=== PATIENT | female | born 1950 | race Caucasian/White ===

== ENCOUNTER 2020-07-22 06:48 | Outpatient (REF) | payer BC, SELFPAY | END 2020-07-22 06:49 | disposition home or self-care (01) | LOC: HO.LAB 06:48 | PROVIDERS: PCP Internal Medicine; Visit Provider Internal Medicine | DX: Z20.828 Contact with and (suspected) exposure to other viral communicable diseases (principal) | CPT/HCPCS: C9803; U0003 ==

== ENCOUNTER 2020-12-23 10:45 | Outpatient (REF) | payer BC, SELFPAY ==
[2020-12-23 10:49] LABS: MANUAL DIFF FLAG NO
[2020-12-23 11:04] LABS: Basophils Percent Auto 0.5 % (0-2); Hematocrit 36.6 % (37-47); Hemoglobin 12.1 g/dl (12.0-16.0); Imm Gran Abs Auto 0.01 X10*3/uL (0.00-0.03); Imm Gran Pct Auto 0.2 % (0.0-0.4); Lymphocytes Absolute Auto 1.4 X10*3/uL (1.2-4.9); Lymphocytes Percent Auto 32.9 % (20-40); Mean Corpuscular HGB Conc 33.1 g/dl (31.0-35.0); Mean Corpuscular Hemoglobin 29.2 pg (27.0-33.0); Mean Corpuscular Volume 88.2 fL (80-98); Monocytes Absolute Auto 0.4 X10*3/uL (0.1-1.2); Monocytes Percent Auto 8.4 % (2-11); Neutrophils Absolute Auto 2.4 X10*3/uL (2.0-8.3); Platelet Count 415 X10*3/uL (160-400); Red Blood Count 4.15 X10*6/uL (4.20-5.50); Red Cell Distribution Width 14.1 % (11.0-16.0); White Blood Count 4.2 X10*3/uL (4.8-10.8)
[2020-12-23 11:15] LABS: Glucose Urine UA NEG (NEG); Leukocyte Esterase Urine 2+ (NEG); Nitrite Urine POS (NEG); PH 6.5 (5.0-8.0); Urine Blood 1+ (NEG); Urine Ketones NEG (NEG); Urine Protein NEG (NEG-TRACE)
[2020-12-23 11:17] LABS: Appearance Urine CLOUDY; Color Urine YELLOW
[2020-12-23 12:22] LABS: WBC Urine 30-49 /HPF (0-4)
[2020-12-23 12:23] LABS: Bacteria Urine 3+ /LPF; Squamous Epithelial Cell Urine 1+ /LPF
[2020-12-23 12:38] LABS: TSH reflex Free T4 1.41 uIU/mL (0.32-4.0)
[2020-12-23 12:40] LABS: Alanine Aminotransferase 21 U/L (0-31); Albumin Level 4.1 g/dL (3.5-5.0); Alkaline Phosphatase 48 U/L (39-117); Anion Gap 14 (12-20); Aspartate Amino Transferase 22 U/L (5-31); Bilirubin Total 0.7 mg/dL (0.0-1.0); Blood Urea Nitrogen 15 mg/dL (9-16); Calcium 9.3 mg/dL (8.4-10.2); Carbon Dioxide 27 mmol/L (22-29); Chloride 98 mmol/L (96-108); Cholesterol 243 mg/dL; Estimated Glomerular Filt Rate > 60; Glucose Fasting 85 mg/dL (60-99); HDL Cholesterol 107 mg/dL; LDL Cholesterol Calculated 127 mg/dl; Potassium 4.4 mmol/L (3.3-5.1); Sodium 135 mmol/L (135-145); Total Protein 6.2 g/dL (6.5-8.0); Triglycerides 47 mg/dL
== END 2020-12-23 10:46 | disposition home or self-care (01) ==
LOC: HO.LNP 10:45
PROVIDERS: Visit Provider Internal Medicine
DX: Z00.00 Encounter for general adult medical examination without abnormal findings (principal); I10 Essential (primary) hypertension; D64.9 Anemia, unspecified; D70.9 Neutropenia, unspecified; E03.9 Hypothyroidism, unspecified
CPT/HCPCS: 80053; 80061; 81001; 81003; 84443; 85025

== ENCOUNTER 2021-05-27 10:15 | Outpatient (REF) | payer BC, SELFPAY ==
--- NOTE | ~2021-05-27 | XR_ITS ---
EXAMINATION: XR CHEST CLINICAL INFORMATION: Pneumonia due to infectious organism. COMPARISON: Chest 11/06/2018 TECHNIQUE: 2 views of the chest were obtained. FINDINGS: The lungs are well-expanded with patchy opacity in right middle lobe and left lingula likely small infiltrates, less likely atelectasis, new since last exam. Rest of the lungs are clear. Heart size and pulmonary vascularity is normal. No gross bony abnormality seen. XR/XR chest 2V IMPRESSION: Patchy opacities in the right middle lobe and lingular segments suggestive of infiltrate. Atelectasis is considered less likely.
== END 2021-05-27 10:16 | disposition home or self-care (01) ==
LOC: HO.HMGCX 10:15
PROVIDERS: PCP Internal Medicine; Visit Provider Internal Medicine
DX: J18.9 Pneumonia, unspecified organism (principal)
CPT/HCPCS: 71046

== ENCOUNTER 2021-05-27 13:50 | Outpatient (REF) | payer BC, SELFPAY | END 2021-05-27 13:51 | disposition home or self-care (01) | LOC: HO.LAB 13:50 | PROVIDERS: PCP Internal Medicine; Visit Provider Internal Medicine | DX: Z20.822 Contact with and (suspected) exposure to COVID-19 (principal) | CPT/HCPCS: C9803; U0003; U0005 ==

== ENCOUNTER 2021-06-02 08:32 | Outpatient (REF) | payer BC, SELFPAY ==
--- NOTE | ~2021-06-02 | XR_ITS ---
EXAMINATION: XR CHEST CLINICAL INFORMATION: Pneumonia. COMPARISON: Most recent chest radiograph dated 05/27/2021. TECHNIQUE: 2 views of the chest were obtained. FINDINGS: Right middle lobe and left lingular opacities, similar when compared to the prior examination. No new airspace consolidation. No pleural effusion or pneumothorax. Stable cardiomediastinal silhouette. XR/XR chest 2V IMPRESSION: Stable right middle lobe and left lingular airspace opacities, similar when compared to the prior examination.
== END 2021-06-02 08:33 | disposition home or self-care (01) ==
LOC: HO.HMGCX 08:32
PROVIDERS: PCP Internal Medicine; Visit Provider Internal Medicine
DX: J18.9 Pneumonia, unspecified organism (principal)
CPT/HCPCS: 71046

== ENCOUNTER 2021-06-15 10:25 | Outpatient (REF) | payer BC, SELFPAY ==
--- NOTE | ~2021-06-15 | XR_ITS ---
EXAMINATION: XR CHEST CLINICAL INFORMATION: Pneumonia COMPARISON: 06/02/2021 TECHNIQUE: 2 views of the chest were obtained. FINDINGS: Hyperexpanded lungs. No consolidation, edema, or effusion. No pneumothorax. The cardiomediastinal silhouette is normal in size. Previous right midlung opacity has resolved. XR/XR chest 2V IMPRESSION: Hyperexpanded, clear lungs. Previous opacity has resolved.
== END 2021-06-15 10:26 | disposition home or self-care (01) ==
LOC: HO.HMGCX 10:25
PROVIDERS: PCP Internal Medicine; Visit Provider Internal Medicine
DX: J18.9 Pneumonia, unspecified organism (principal)
CPT/HCPCS: 71046

== ENCOUNTER 2021-06-29 14:02 | Outpatient (REF) | payer BC, SELFPAY ==
[2021-06-29 14:55] LABS: Thyroid Stimulating Hormone 1.06 uIU/mL (0.32-4.0)
== END 2021-06-29 14:03 | disposition home or self-care (01) ==
LOC: HO.LNP 14:02
PROVIDERS: Visit Provider Internal Medicine
DX: E03.9 Hypothyroidism, unspecified (principal)
CPT/HCPCS: 84443

== ENCOUNTER 2021-07-15 09:30 | Outpatient (REF) | payer BC, SELFPAY ==
--- NOTE | ~2021-07-15 | XR_ITS ---
EXAMINATION: XR CHEST CLINICAL INFORMATION: Bilateral lower zone pneumonia. Follow-up COMPARISON: Chest radiographs 06/15/2021, 06/02/2021, 05/27/2021 TECHNIQUE: 2 views of the chest were obtained. FINDINGS: There is new airspace opacity mid right middle lobe. The right perihilar opacity and opacity left base noted on recent exams have cleared. The costophrenic sulci are clear. The heart is normal in size. The vascularity is normal. The hilar and mediastinal contours and bony structures are unremarkable. XR/XR chest 2V IMPRESSION: 1. New infiltrates mid right middle lobe. 2. Recent right perihilar and left basilar opacities have resolved.
[2021-07-15 11:19] LABS: MANUAL DIFF FLAG NO
[2021-07-15 11:24] LABS: Basophils Percent Auto 0.1 % (0-2); Eosinophils Percent Auto 0.1 % (0-4); Hematocrit 33.4 % (37.0-47.0); Hemoglobin 11.1 g/dl (12.0-16.0); Imm Gran Abs Auto 0.04 X10*3/uL (0.00-0.03); Imm Gran Pct Auto 0.3 % (0.0-0.4); Lymphocytes Absolute Auto 0.9 X10*3/uL (1.2-4.9); Lymphocytes Percent Auto 6.4 % (20-40); Mean Corpuscular HGB Conc 33.2 g/dl (31.0-35.0); Mean Corpuscular Hemoglobin 29.9 pg (27.0-33.0); Mean Platelet Volume 8.6 fL (9.4-12.3); Monocytes Absolute Auto 1.2 X10*3/uL (0.1-1.2); Monocytes Percent Auto 8.5 % (2-11); Neutrophils Absolute Auto 11.5 x10*3/uL (2.0-8.3); Neutrophils Percent Auto 84.6 % (45-73); Platelet Count 438 X10*3/uL (160-400); Red Blood Count 3.71 X10*6/uL (4.20-5.50); Red Cell Distribution Width 14.1 % (11.0-16.0); White Blood Count 13.6 X10*3/uL (4.8-10.8)
[2021-07-15 12:03] LABS: Alanine Aminotransferase 21 U/L (0-31); Albumin Level 3.9 g/dL (3.5-5.0); Alkaline Phosphatase 58 U/L (39-117); Anion Gap 15 (12-20); Aspartate Amino Transferase 25 U/L (5-31); Bilirubin Total 0.7 mg/dL (0.0-1.0); Blood Urea Nitrogen 14 mg/dL (9-16); Calcium 9.3 mg/dL (8.4-10.2); Carbon Dioxide 22 mmol/L (22-29); Chloride 100 mmol/L (96-108); Estimated Glomerular Filt Rate > 60; Glucose Random 94 mg/dL (60-115); Potassium 4.2 mmol/L (3.3-5.1); Sodium 133 mmol/L (135-145); Total Protein 6.2 g/dL (6.5-8.0)
[2021-07-15 12:05] LABS: Erythrocyte Sedimentation Rate 25 MM/HR (0-20)
== END 2021-07-15 09:31 | disposition home or self-care (01) ==
LOC: HO.HMGCLDS 09:30
PROVIDERS: PCP Internal Medicine; Visit Provider Internal Medicine
DX: J18.9 Pneumonia, unspecified organism (principal)
CPT/HCPCS: 36415; 71046; 80053; 85025; 85652

== ENCOUNTER 2021-07-17 09:07 | Outpatient (REF) | payer BC, SELFPAY ==
[2021-07-17 10:12] LABS: COVID-19 Test Negative (Negative)
== END 2021-07-17 09:08 | disposition home or self-care (01) ==
LOC: HO.LAB 09:07
PROVIDERS: PCP Internal Medicine; Visit Provider Internal Medicine
DX: Z20.822 Contact with and (suspected) exposure to COVID-19 (principal)
CPT/HCPCS: 36415; 87635; C9803

== ENCOUNTER 2021-07-30 11:24 | Outpatient (REF) | payer BC, SELFPAY ==
--- NOTE | ~2021-07-30 | XR_ITS ---
EXAMINATION: XR CHEST CLINICAL INFORMATION: Pneumonia of both lower lobes. COMPARISON: Prior chest radiographs, most recently 07/15/2021 TECHNIQUE: 2 views of the chest were obtained. FINDINGS: Near complete resolution of the previously seen right middle lobe opacity. No new airspace opacities are identified. No pleural effusion or pneumothorax. Cardiomediastinal contours are unchanged. XR/XR chest 2V IMPRESSION: Near complete resolution of right middle lobe opacity. No new focal opacities.
== END 2021-07-30 11:25 | disposition home or self-care (01) ==
LOC: HO.HMGCX 11:24
PROVIDERS: PCP Internal Medicine; Visit Provider Internal Medicine
DX: J18.9 Pneumonia, unspecified organism (principal)
CPT/HCPCS: 71046

== ENCOUNTER 2021-12-29 10:58 | Outpatient (REF) | payer BC, SELFPAY ==
[2021-12-29 11:02] LABS: MANUAL DIFF FLAG NO
[2021-12-29 11:15] LABS: Basophils Percent Auto 0.4 % (0-2); Eosinophils Absolute Auto 0.1 X10*3/uL (0.0-0.4); Eosinophils Percent Auto 2.8 % (0-4); Hematocrit 35.3 % (37.0-47.0); Hemoglobin 11.7 g/dl (12.0-16.0); Imm Gran Abs Auto 0.01 X10*3/uL (0.00-0.03); Imm Gran Pct Auto 0.2 % (0.0-0.4); Lymphocytes Absolute Auto 1.2 X10*3/uL (1.2-4.9); Lymphocytes Percent Auto 24.7 % (20-40); Mean Corpuscular HGB Conc 33.1 g/dl (31.0-35.0); Mean Corpuscular Hemoglobin 29.3 pg (27.0-33.0); Mean Corpuscular Volume 88.5 fL (80.0-98.0); Mean Platelet Volume 8.9 fL (9.4-12.3); Monocytes Absolute Auto 0.5 X10*3/uL (0.1-1.2); Monocytes Percent Auto 10.2 % (2-11); Neutrophils Absolute Auto 3.1 x10*3/uL (2.0-8.3); Neutrophils Percent Auto 61.7 % (45-73); Platelet Count 377 X10*3/uL (160-400); Red Blood Count 3.99 X10*6/uL (4.20-5.50); Red Cell Distribution Width 13.4 % (11.0-16.0)
[2021-12-29 11:19] LABS: Appearance Urine HAZY; Color Urine YELLOW; Glucose Urine UA NEG (NEG); Leukocyte Esterase Urine 3+ (NEG); Nitrite Urine NEG (NEG); PH 7.5 (5.0-8.0); Urine Blood 1+ (NEG); Urine Ketones NEG (NEG); Urine Protein NEG (NEG-TRACE)
[2021-12-29 11:29] LABS: Alanine Aminotransferase 15 U/L (0-31); Alkaline Phosphatase 49 U/L (39-117); Anion Gap 7 (12-20); Aspartate Amino Transferase 21 U/L (5-31); Bilirubin Total 0.6 mg/dL (0.0-1.0); Blood Urea Nitrogen 12 mg/dL (9-16); Calcium 9.3 mg/dL (8.4-10.2); Carbon Dioxide 29 mmol/L (22-29); Chloride 101 mmol/L (96-108); Cholesterol 215 mg/dL; Estimated Glomerular Filt Rate > 60; Glucose Fasting 92 mg/dL (60-99); HDL Cholesterol 105 mg/dL; LDL Cholesterol Calculated 103 mg/dl; Potassium 4.2 mmol/L (3.3-5.1); Sodium 133 mmol/L (135-145); Total Protein 6.2 g/dL (6.5-8.0); Triglycerides 39 mg/dL
[2021-12-29 11:36] LABS: Squamous Epithelial Cell Urine 1+ /LPF
[2021-12-29 11:54] LABS: TSH reflex Free T4 0.96 uIU/mL (0.32-4.0)
== END 2021-12-29 10:59 | disposition home or self-care (01) ==
LOC: HO.LNP 10:58
PROVIDERS: Visit Provider Internal Medicine
DX: Z00.00 Encounter for general adult medical examination without abnormal findings (principal); E03.9 Hypothyroidism, unspecified; I10 Essential (primary) hypertension; D64.9 Anemia, unspecified; D70.9 Neutropenia, unspecified
CPT/HCPCS: 80053; 80061; 81001; 84443; 85025

== ENCOUNTER 2022-01-04 10:27 | Outpatient (REF) | payer BC, SELFPAY ==
[2022-01-06 22:06] LABS: Anti Nuclear Antibody Screen POSITIVE (NEGATIVE)
== END 2022-01-04 10:28 | disposition home or self-care (01) ==
LOC: HO.LNP 10:27
PROVIDERS: PCP Internal Medicine; Visit Provider Internal Medicine
DX: R76.8 Other specified abnormal immunological findings in serum (principal)
CPT/HCPCS: 86038; 86039

== ENCOUNTER 2022-06-24 15:28 | Outpatient (REF) | payer BC, SELFPAY ==
[2022-06-24 15:51] LABS: MANUAL DIFF FLAG NO
[2022-06-24 16:28] LABS: Basophils Percent Auto 0.4 % (0-2); Eosinophils Absolute Auto 0.1 X10*3/uL (0.0-0.4); Eosinophils Percent Auto 0.9 % (0-4); Hematocrit 36.3 % (37.0-47.0); Hemoglobin 12.2 g/dl (12.0-16.0); Imm Gran Abs Auto 0.02 X10*3/uL (0.00-0.03); Imm Gran Pct Auto 0.3 % (0.0-0.4); Lymphocytes Absolute Auto 1.2 X10*3/uL (1.2-4.9); Lymphocytes Percent Auto 16.4 % (20-40); Mean Corpuscular HGB Conc 33.6 g/dl (31.0-35.0); Mean Corpuscular Hemoglobin 30.1 pg (27.0-33.0); Mean Corpuscular Volume 89.6 fL (80.0-98.0); Mean Platelet Volume 8.8 fL (9.4-12.3); Monocytes Absolute Auto 0.5 X10*3/uL (0.1-1.2); Monocytes Percent Auto 6.8 % (2-11); Neutrophils Absolute Auto 5.7 x10*3/uL (2.0-8.3); Neutrophils Percent Auto 75.2 % (45-73); Platelet Count 443 X10*3/uL (160-400); Red Blood Count 4.05 X10*6/uL (4.20-5.50); White Blood Count 7.5 X10*3/uL (4.8-10.8)
[2022-06-24 16:40] LABS: Estimated Glomerular Filt Rate > 60
[2022-06-24 16:47] LABS: Creatinine Urine 46.66 mg/dL; Total Protein Urine Random < 7 mg/dL (<12)
[2022-06-24 17:56] LABS: Erythrocyte Sedimentation Rate 5 MM/HR (0-20)
[2022-06-26 14:36] LABS: IgA 153 mg/dL (70-320); IgG 693 mg/dL (600-1540); IgM 90 mg/dL (50-300)
[2022-07-01 13:26] LABS: Anti DNA DS Antibody 3 IU/mL; Antibody to SS-A Antigen <1.0 NEG AI (<1.0 NEG); Antibody to SS-B Antigen <1.0 NEG AI (<1.0 NEG); Myeloperoxidase Antibody <1.0 AI; Proteinase 3 PR3 Antibodies <1.0 AI; SM/Ribonucleoprotein Ab <1.0 NEG AI (<1.0 NEG); Smith Protein <1.0 NEG AI (<1.0 NEG)
== END 2022-06-24 15:29 | disposition home or self-care (01) ==
LOC: HO.LAB 15:28
PROVIDERS: PCP Internal Medicine; Visit Provider Internal Medicine Rheumatology
DX: R76.8 Other specified abnormal immunological findings in serum (principal); Z87.01 Personal history of pneumonia (recurrent)
CPT/HCPCS: 36415; 82565; 82784; 84156; 85025; 85652; 86021; 86140; 86225; 86235

== ENCOUNTER 2023-01-03 10:41 | Outpatient (REF) | payer BC, SELFPAY ==
[2023-01-03 10:49] LABS: MANUAL DIFF FLAG NO
[2023-01-03 11:31] LABS: Basophils Percent Auto 0.6 % (0-2); Eosinophils Absolute Auto 0.1 X10*3/uL (0.0-0.4); Eosinophils Percent Auto 1.3 % (0-4); Hematocrit 37.5 % (37.0-47.0); Hemoglobin 12.5 g/dl (12.0-16.0); Imm Gran Abs Auto 0.01 X10*3/uL (0.00-0.03); Imm Gran Pct Auto 0.2 % (0.0-0.4); Lymphocytes Absolute Auto 1.3 X10*3/uL (1.2-4.9); Lymphocytes Percent Auto 23.8 % (20-40); Mean Corpuscular HGB Conc 33.3 g/dl (31.0-35.0); Mean Corpuscular Hemoglobin 29.6 pg (27.0-33.0); Mean Corpuscular Volume 88.7 fL (80.0-98.0); Mean Platelet Volume 8.6 fL (9.4-12.3); Monocytes Absolute Auto 0.5 X10*3/uL (0.1-1.2); Monocytes Percent Auto 8.5 % (2-11); Neutrophils Absolute Auto 3.6 x10*3/uL (2.0-8.3); Neutrophils Percent Auto 65.6 % (45-73); Platelet Count 415 X10*3/uL (160-400); Red Blood Count 4.23 X10*6/uL (4.20-5.50); Red Cell Distribution Width 13.4 % (11.0-16.0); White Blood Count 5.4 X10*3/uL (4.8-10.8)
[2023-01-03 11:42] LABS: Appearance Urine Clear; Color Urine Yellow; Glucose Urine UA Negative (Negative); Leukocyte Esterase Urine Large (3+) (Negative); Nitrite Urine Negative (Negative); PH 6.5 (5.0-9.0); Specific Gravity - Urine 1.015 (1.005-1.025); UMIC TRIGGER UACC YES; Urine Blood Small (1+) (Negative); Urine Ketones Negative (Negative); Urine Protein Negative (Neg-Trace)
[2023-01-03 11:47] LABS: Bacteria Urine 4+ (None Seen); Hyaline Casts Urine 0-2 /LPF (0-2); Squamous Epithelial Cell Urine 0-2 /HPF (0-2); UACC Culture Trigger YES; WBC Urine >50 /HPF (0-5)
[2023-01-03 11:55] LABS: Alanine Aminotransferase 18 U/L (0-31); Alkaline Phosphatase 52 U/L (39-117); Anion Gap 14 (12-20); Aspartate Amino Transferase 21 U/L (5-31); Bilirubin Total 0.8 mg/dL (0.0-1.0); Blood Urea Nitrogen 10 mg/dL (9-16); Calcium 9.6 mg/dL (8.4-10.2); Carbon Dioxide 27 mmol/L (22-29); Chloride 101 mmol/L (96-108); Cholesterol 243 mg/dL; Estimated Glomerular Filt Rate > 60; Glucose Fasting 91 mg/dL (60-99); HDL Cholesterol 109 mg/dL; LDL Cholesterol Calculated 125 mg/dl; Potassium 4.5 mmol/L (3.3-5.1); Sodium 137 mmol/L (135-145); Total Protein 6.3 g/dL (6.5-8.0); Triglycerides 49 mg/dL
[2023-01-03 12:05] LABS: TSH reflex Free T4 0.59 uIU/mL (0.32-4.0)
== END 2023-01-03 10:42 | disposition home or self-care (01) ==
LOC: HO.LNP 10:41
PROVIDERS: Visit Provider Internal Medicine
DX: Z00.00 Encounter for general adult medical examination without abnormal findings (principal); I10 Essential (primary) hypertension; E03.9 Hypothyroidism, unspecified; D64.9 Anemia, unspecified; R82.90 Unspecified abnormal findings in urine
CPT/HCPCS: 80053; 80061; 81001; 84443; 85025; 87086; 87088; 87186

== ENCOUNTER 2023-01-24 10:35 | Outpatient (REF) | payer BC, SELFPAY ==
[2023-01-24 11:14] LABS: Appearance Urine Cloudy; Color Urine Yellow; Glucose Urine UA Negative (Negative); Leukocyte Esterase Urine Trace (Negative); Nitrite Urine Negative (Negative); PH 8.5 (5.0-9.0); UMIC TRIGGER UA YES; Urine Blood Negative (Negative); Urine Ketones Negative (Negative); Urine Protein Negative (Neg-Trace)
[2023-01-24 11:35] LABS: Bacteria Urine None Seen (None Seen); Hyaline Casts Urine 0-2 /LPF (0-2); Other Crystals Urine Present; RBC Urine 0-2 /HPF (0-2); Squamous Epithelial Cell Urine 0-2 /HPF (0-2)
== END 2023-01-24 10:36 | disposition home or self-care (01) ==
LOC: HO.LNP 10:35
PROVIDERS: PCP Internal Medicine; Visit Provider Internal Medicine
DX: N30.01 Acute cystitis with hematuria (principal)
CPT/HCPCS: 81001; 87086

== ENCOUNTER 2024-01-02 11:13 | Outpatient (REF) | payer BC, SELFPAY ==
[2024-01-02 11:15] LABS: MANUAL DIFF FLAG NO
[2024-01-02 11:39] LABS: Basophils Percent Auto 0.6 % (0-2); Eosinophils Absolute Auto 0.1 X10*3/uL (0.0-0.4); Eosinophils Percent Auto 1.5 % (0-4); Hematocrit 38.5 % (37.0-47.0); Hemoglobin 12.8 g/dl (12.0-16.0); Imm Gran Abs Auto 0.01 X10*3/uL (0.00-0.03); Imm Gran Pct Auto 0.2 % (0.0-0.4); Lymphocytes Absolute Auto 1.2 X10*3/uL (1.2-4.9); Lymphocytes Percent Auto 25.8 % (20-40); Mean Corpuscular HGB Conc 33.2 g/dl (31.0-35.0); Mean Corpuscular Hemoglobin 29.7 pg (27.0-33.0); Mean Corpuscular Volume 89.3 fL (80.0-98.0); Mean Platelet Volume 8.5 fL (9.4-12.3); Monocytes Absolute Auto 0.6 X10*3/uL (0.1-1.2); Monocytes Percent Auto 12.3 % (2-11); Neutrophils Absolute Auto 2.9 x10*3/uL (2.0-8.3); Neutrophils Percent Auto 59.6 % (45-73); Platelet Count 427 X10*3/uL (160-400); Red Blood Count 4.31 X10*6/uL (4.20-5.50); Red Cell Distribution Width 13.7 % (11.0-16.0); White Blood Count 4.8 X10*3/uL (4.8-10.8)
[2024-01-02 11:44] LABS: Appearance Urine Clear; Color Urine Yellow; Glucose Urine UA Negative (Negative); Leukocyte Esterase Urine Small (1+) (Negative); Nitrite Urine Negative (Negative); Specific Gravity - Urine 1.015 (1.005-1.025); UMIC TRIGGER UACC YES; Urine Blood Trace (Negative); Urine Ketones Negative (Negative); Urine Protein Negative (Neg-Trace)
[2024-01-02 11:48] LABS: Bacteria Urine None Seen (None Seen); Hyaline Casts Urine 0-2 /LPF (0-2); Squamous Epithelial Cell Urine 0-2 /HPF (0-2); UACC Culture Trigger YES
[2024-01-02 12:15] LABS: Alanine Aminotransferase 17 U/L (0-31); Albumin Level 4.2 g/dL (3.5-5.0); Alkaline Phosphatase 57 U/L (39-117); Anion Gap 13 (12-20); Aspartate Amino Transferase 22 U/L (5-31); Bilirubin Total 0.4 mg/dL (0.0-1.0); Blood Urea Nitrogen 11 mg/dL (9-16); Calcium 9.4 mg/dL (8.4-10.2); Carbon Dioxide 26 mmol/L (22-29); Chloride 99 mmol/L (96-108); Cholesterol 240 mg/dL (<200); Estimated Glomerular Filt Rate > 60; Glucose Fasting 82 mg/dL (60-99); HDL Cholesterol 113 mg/dL (>40); LDL Cholesterol Calculated 118 mg/dL (<100); Potassium 4.1 mmol/L (3.3-5.1); Sodium 134 mmol/L (135-145); Total Protein 6.9 g/dL (6.5-8.0); Triglycerides 48 mg/dL (<150)
== END 2024-01-02 11:14 | disposition home or self-care (01) ==
LOC: HO.LNP 11:13
PROVIDERS: Visit Provider Internal Medicine
DX: Z00.00 Encounter for general adult medical examination without abnormal findings (principal); I10 Essential (primary) hypertension; E03.9 Hypothyroidism, unspecified; D64.9 Anemia, unspecified
CPT/HCPCS: 80053; 80061; 81001; 84443; 85025; 87086

== ENCOUNTER 2024-01-24 10:05 | Outpatient (REF) | payer BC, SELFPAY ==
[2024-01-24 12:14] LABS: Anion Gap 12 (12-20); Blood Urea Nitrogen 10 mg/dL (9-16); Calcium 9.6 mg/dL (8.4-10.2); Carbon Dioxide 26 mmol/L (22-29); Chloride 97 mmol/L (96-108); Estimated Glomerular Filt Rate > 60; Potassium 4.2 mmol/L (3.3-5.1); Sodium 131 mmol/L (135-145)
[2024-01-24 14:24] LABS: Creatinine Urine 17.01 mg/dL; Total Protein Urine Random < 7 mg/dL (<12)
== END 2024-01-24 10:06 | disposition home or self-care (01) ==
LOC: HO.LAB 10:05
PROVIDERS: PCP Internal Medicine; Visit Provider Internal Medicine Nephrology
DX: I10 Essential (primary) hypertension (principal)
CPT/HCPCS: 36415; 80051; 82310; 82565; 82570; 84156; 84520

== ENCOUNTER → 2024-01-25 11:46 | Outpatient (BNVA) | payer BC, SELFPAY | PROVIDERS: PCP Internal Medicine; Visit Provider Internal Medicine Nephrology ==

== ENCOUNTER 2024-01-25 11:50 | Outpatient (AMB) | payer BC, SELFPAY ==
[2024-01-25 11:50] VITALS: BP 130/70; PULSE 69; O2SAT 96; BMI 22.9
--- NOTE | 2024-01-25 11:50 | HO.NEPHOV ---
Vital Signs 01/25/24 11:50 Height 5 ft 3.5 in Weight 131 lb 4 oz BMI 22.9 BP 130/70 Blood Pressure Location Rt brachial Position Sitting Pulse 69 Pulse Source Pulse Oximeter Pulse Oximetry (%) 96 Oxygen Delivery Method Room Air Intake Visit Reasons: [facility] Manager Required: No Accompanied by: Self / Same As Patient Allergies levofloxacin Allergy (Intermediate, Verified 01/25/24 11:52) Rash lisinopril Allergy (Intermediate, Verified 01/25/24 11:52) cough HPI Comments Details: I had the pleasure of seeing Deborah in follow-up of her hypertension and hyponatremia. She had been prescribed escitalopram recently which she has not been tolerating very well. Her blood pressure is very well controlled. Her serum sodium has been stable. She does not have any orthostatic symptoms, nausea, vomiting, diarrhea, edema, chest pain, shortness of breath, paroxysmal nocturnal dyspnea or orthopnea. She takes nonsteroidal anti-inflammatories as needed basis. She does not drink excessive free water. Otherwise she did not have any new other complaints at the time of this office visit [facility] Medical History (Updated 01/25/24 @ 13:04 by Alec Rust MD) Hypothyroidism Sciatica Hypertension Kidney stones Osteoporosis Neutropenia Insomnia Anemia Tubular adenoma of colon Surgical History Hx of endoscopy Hx of colonoscopy History of right hip replacement Family History Father Cancer Mother Cancer Social History Household Members: Spouse Housing: House Alcohol intake: current Alcohol intake frequency: a few times a month Alcohol type: wine Patient Tobacco Use Status: Never used Tobacco e-Cigarette/Vaping Use: Never Used service: No Current occupational status: employed Current occupation: Realtor Review of Systems Const All systems reviewed & are unremarkable except as noted in HPI and below Physical Exam Vital Signs: Last Vital Signs Pulse 69 01/25/24 11:50 BP 130/70 01/25/24 11:50 Pulse Ox 96 01/25/24 11:50 Oxygen Delivery Method Room Air 01/25/24 11:50 BMI result Body Mass Index 22.9 Const General: comfortable and no acute distress Orientation/consciousness: patient oriented x3 HEENT Head: Yes normocephalic Mouth: Normal oral and palatal mucosa present Eyes EOM: EOMs intact bilaterally Neck Neck: Yes supple Resp Auscultation: clear to auscultation bilaterally Cardio Jugular venous distension: no JVD Rate: regular rate GI Palpation (GI): Soft to palpation Auscultation: normal bowel sounds General: Yes no CVA tenderness Back/Spine/Pelvis Back: no CVA tenderness Skin General skin exam: no rashes or lesions noted Neuro General: patient oriented x3 and moves all extremities Extrem General: Yes no pedal edema Results Reviewed Nephrology Results: Hgb 12.8 g/dl (12.0-16.0) 01/02/24 WBC 4.8 X10*3/uL (4.8-10.8) 01/02/24 Plt Count 427 X10*3/uL (160-400) H 01/02/24 Sodium 131 mmol/L (135-145) L 01/24/24 Potassium 4.2 mmol/L (3.3-5.1) 01/24/24 Chloride 97 mmol/L (96-108) 01/24/24 Carbon Dioxide 26 mmol/L (22-29) 01/24/24 BUN 10 mg/dL (9-16) 01/24/24 Creatinine 0.59 mg/dL (0.5-1.4) 01/24/24 Calcium 9.6 mg/dL (8.4-10.2) 01/24/24 Urine Protein Negative mg/dL (Neg-Trace) 01/02/24 Urine Creatinine 17.01 mg/dL 01/24/24 Protein/Creatinin Ratio TNP 01/24/24 Assessment & Plan Assessment & Plan (1) Hypertension: Code(s): I10 - Essential (primary) hypertension Category: Medical Qualifiers: Hypertension type: primary hypertension Qualified Code(s): I10 - Essential (primary) hypertension (2) Hyponatremia: Code(s): E87.1 - Hypo-osmolality and hyponatremia Category: Medical Plan Deborah has longstanding hypertension. Her blood pressure is currently well controlled at goal on losartan and amlodipine. She does not take excessive sodium in the diet. She does not drink excessive free water either. Her renal functions are normal. Her serum sodium is stable. She does not have any weakness or mentation changes. She likely has mild excessive ADH production. She was encouraged not to take excessive nonsteroidal anti-inflammatories given she is on ARB. Her volume status is optimal. Her blood chemistries are acceptable. I had not make any medication changes today. Answered all questions. Follow-up appointment given. Orders: Orders Creatinine Today I10 - Essential (primary) hypertension Blood Urea Nitrogen Today I10 - Essential (primary) hypertension Electrolytes Today I10 - Essential (primary) hypertension Coding Level of Care Code Est Pt Level 4 (70961) Diagnoses Primary hypertension I10 Hypertension type: primary hypertension Hyponatremia E87.1
== END 2024-01-25 12:11 | disposition home or self-care (01) ==
PROVIDERS: PCP Internal Medicine; Visit Provider Internal Medicine Nephrology
DX: I10 Essential (primary) hypertension (principal); E87.1 Hypo-osmolality and hyponatremia
CPT/HCPCS: 99214

== ENCOUNTER 2024-02-07 11:06 | Outpatient (REF) | payer BC, SELFPAY ==
[2024-02-07 11:18] LABS: Sodium 133 mmol/L (135-145)
== END 2024-02-07 11:07 | disposition home or self-care (01) ==
LOC: HO.LNP 11:06
PROVIDERS: Visit Provider Internal Medicine
DX: E87.1 Hypo-osmolality and hyponatremia (principal)
CPT/HCPCS: 84295

== ENCOUNTER 2024-02-23 11:04 | Outpatient (REF) | payer BC, SELFPAY ==
[2024-02-23 11:46] LABS: Sodium 130 mmol/L (135-145)
== END 2024-02-23 11:05 | disposition home or self-care (01) ==
LOC: HO.LNP 11:04
PROVIDERS: Visit Provider Internal Medicine
DX: E87.1 Hypo-osmolality and hyponatremia (principal)
CPT/HCPCS: 84295

== ENCOUNTER 2024-04-10 10:57 | Outpatient (REF) | payer BC, SELFPAY ==
[2024-04-10 11:05] LABS: Appearance Urine Clear; Color Urine Yellow; Glucose Urine UA Negative (Negative); Leukocyte Esterase Urine Moderate (2+) (Negative); Nitrite Urine Negative (Negative); PH 7.5 (5.0-9.0); Specific Gravity - Urine 1.015 (1.005-1.025); UMIC TRIGGER UACC YES; Urine Blood Trace (Negative); Urine Ketones Negative (Negative); Urine Protein Negative (Neg-Trace)
[2024-04-10 11:07] LABS: Bacteria Urine None Seen (None Seen); Hyaline Casts Urine 0-2 /LPF (0-2); Squamous Epithelial Cell Urine 0-2 /HPF (0-2); UACC Culture Trigger YES
== END 2024-04-10 10:58 | disposition home or self-care (01) ==
LOC: HO.LNP 10:57
PROVIDERS: Visit Provider Internal Medicine
DX: R31.9 Hematuria, unspecified (principal)
CPT/HCPCS: 81001; 87086

== ENCOUNTER 2024-04-26 11:45 | Outpatient (REF) | payer BC, SELFPAY ==
[2024-04-26 12:26] LABS: Sodium 133 mmol/L (135-145)
== END 2024-04-26 11:46 | disposition home or self-care (01) ==
LOC: HO.LNP 11:45
PROVIDERS: Visit Provider Internal Medicine
DX: E87.1 Hypo-osmolality and hyponatremia (principal)
CPT/HCPCS: 84295

== ENCOUNTER 2024-05-29 15:42 | Outpatient (REF) | payer BC, SELFPAY ==
--- NOTE | ~2024-05-29 | XR_ITS ---
EXAMINATION: XR CHEST 2 VIEWS CLINICAL INFORMATION: Pneumonia. COMPARISON: No prior images available at this time TECHNIQUE: 2 views of the chest were obtained. FINDINGS: The lungs are well-inflated. There is no gross pneumothorax. Cardiomediastinal silhouette within normal limits in size. Trace bilateral pleural effusions. Moderate multilevel degenerative changes in the thoracic spine. Moderate hazy opacities along the medial right lower lung. XR/XR chest 2V IMPRESSION: Moderate hazy opacities along the medial right lower lung. Trace bilateral pleural effusions. This study was presented today to July 31, 2024 for interpretation. Stat results provided at this time as requested by referring provider. Electronically signed by: Sunshine Masters MD 07/31/2024 09:38 AM MATI
== END 2024-05-29 15:43 | disposition home or self-care (01) ==
LOC: HO.XRAY 15:42
PROVIDERS: PCP Internal Medicine; Referring Provider Internal Medicine; Visit Provider Internal Medicine
DX: J18.9 Pneumonia, unspecified organism (principal)
CPT/HCPCS: 71046

== ENCOUNTER 2024-07-19 11:48 | Outpatient (REF) | payer BC, SELFPAY ==
[2024-07-19 13:13] LABS: Anion Gap 11 (12-20); Blood Urea Nitrogen 14 mg/dL (9-16); Carbon Dioxide 26 mmol/L (22-29); Chloride 98 mmol/L (96-108); Estimated Glomerular Filt Rate > 60; Sodium 131 mmol/L (135-145)
== END 2024-07-19 11:49 | disposition home or self-care (01) ==
LOC: HO.HMGCLDS 11:48
PROVIDERS: PCP Internal Medicine; Visit Provider Internal Medicine Nephrology
DX: I10 Essential (primary) hypertension (principal)
CPT/HCPCS: 36415; 80051; 82565; 84520

== ENCOUNTER 2024-07-25 11:14 | Outpatient (AMB) | payer BC, SELFPAY ==
--- NOTE | 2024-07-25 11:18 | HO.NEPHOV ---
Vital Signs 07/25/24 11:29 Height 5 ft 3.5 in Weight 131 lb 6 oz BMI 22.9 BP 150/60 H Blood Pressure Location Rt brachial Position Sitting Intake Visit Reasons: 4 mo fu w/ labs/ Conf Accompanied by: Self / Same As Patient Allergies levofloxacin Allergy (Intermediate, Verified 07/25/24 11:29) Rash lisinopril Allergy (Intermediate, Verified 07/25/24 11:29) cough HPI Comments Details: Deborah in follow-up of her hypertension and hyponatremia. Recently she had hystrectomy. She had been prescribed antidepressants which she has not been tolerating very well & D/Barrett them. Her blood pressure is very well controlled. Her serum sodium has been stable. She does not have any orthostatic symptoms, nausea, vomiting, diarrhea, edema, chest pain, shortness of breath, paroxysmal nocturnal dyspnea or orthopnea. She takes nonsteroidal anti-inflammatories as needed basis. She does not drink excessive free water. Otherwise she did not have any new other complaints at the time of this office visit [facility] Medical History (Updated 01/25/24 @ 13:04 by Alec Rust MD) Hypothyroidism Sciatica Hypertension Kidney stones Osteoporosis Neutropenia Insomnia Anemia Tubular adenoma of colon Surgical History Hx of endoscopy Hx of colonoscopy History of right hip replacement Family History Father Cancer Mother Cancer Social History Household Members: Spouse Housing: House Alcohol intake: current Alcohol intake frequency: a few times a month Alcohol type: wine Patient Tobacco Use Status: Never used Tobacco e-Cigarette/Vaping Use: Never Used service: No Current occupational status: employed Current occupation: Realtor Review of Systems Const All systems reviewed & are unremarkable except as noted in HPI and below Physical Exam Vital Signs: Last Vital Signs BP 150/60 H 07/25/24 11:29 BMI result Body Mass Index 22.9 Const General: comfortable and no acute distress Orientation/consciousness: patient oriented x3 HEENT Head: Yes normocephalic Mouth: Normal oral and palatal mucosa present Eyes EOM: EOMs intact bilaterally Neck Neck: Yes supple Resp Auscultation: clear to auscultation bilaterally Cardio Jugular venous distension: no JVD Rate: regular rate GI Palpation (GI): Soft to palpation Auscultation: normal bowel sounds General: Yes no CVA tenderness Back/Spine/Pelvis Back: no CVA tenderness Skin General skin exam: no rashes or lesions noted Neuro General: patient oriented x3 and moves all extremities Extrem General: Yes no pedal edema Results Reviewed Nephrology Results: Hgb 12.8 g/dl (12.0-16.0) 01/02/24 WBC 4.8 X10*3/uL (4.8-10.8) 01/02/24 Plt Count 427 X10*3/uL (160-400) H 01/02/24 Sodium 131 mmol/L (135-145) L 07/19/24 Potassium 4.0 mmol/L (3.3-5.1) 07/19/24 Chloride 98 mmol/L (96-108) 07/19/24 Carbon Dioxide 26 mmol/L (22-29) 07/19/24 BUN 14 mg/dL (9-16) 07/19/24 Creatinine 0.61 mg/dL (0.5-1.4) 07/19/24 Calcium 9.6 mg/dL (8.4-10.2) 01/24/24 Urine Protein Negative mg/dL (Neg-Trace) 04/10/24 Urine Creatinine 17.01 mg/dL 01/24/24 Protein/Creatinin Ratio TNP 01/24/24 Assessment & Plan Assessment & Plan (1) Hyponatremia: Code(s): E87.1 - Hypo-osmolality and hyponatremia Category: Medical (2) Hypertension: Code(s): I10 - Essential (primary) hypertension Category: Medical Qualifiers: Hypertension type: primary hypertension Qualified Code(s): I10 - Essential (primary) hypertension Plan Deborah has longstanding hypertension. Her blood pressure is currently well controlled at goal on losartan and amlodipine. She does not take excessive sodium in the diet. She does not drink excessive free water either. Her renal functions are normal. Her serum sodium is stable. She does not have any weakness or mentation changes. She likely has mild excessive ADH production. She was encouraged not to take excessive nonsteroidal anti-inflammatories given she is on ARB. Her volume status is optimal. Her blood chemistries are acceptable. I had not make any medication changes today. Answered all questions. Orders: Orders Creatinine 6 Months E87.1 - Hypo-osmolality and hyponatremia, I10 - Essential (primary) hypertension Electrolytes 6 Months E87.1 - Hypo-osmolality and hyponatremia, I10 - Essential (primary) hypertension Blood Urea Nitrogen 6 Months E87.1 - Hypo-osmolality and hyponatremia, I10 - Essential (primary) hypertension Protein Creatinine Ratio, Ur 6 Months E87.1 - Hypo-osmolality and hyponatremia, I10 - Essential (primary) hypertension Coding Level of Care Code Est Pt Level 4 (30394) Diagnoses Hyponatremia E87.1 Primary hypertension I10 Hypertension type: primary hypertension
[2024-07-25 11:29] VITALS: BP 150/60; BMI 22.9
== END 2024-07-25 11:39 | disposition home or self-care (01) ==
PROVIDERS: PCP Internal Medicine; Visit Provider Internal Medicine Nephrology
DX: E87.1 Hypo-osmolality and hyponatremia (principal); I10 Essential (primary) hypertension
CPT/HCPCS: 99214

== ENCOUNTER 2024-10-05 10:39 | Outpatient (REF) | payer BC, SELFPAY ==
[2024-10-05 11:15] LABS: Appearance Urine Clear; Color Urine Yellow; Glucose Urine UA Negative (Negative); Leukocyte Esterase Urine Small (1+) (Negative); Nitrite Urine Negative (Negative); PH 7.5 (5.0-9.0); Specific Gravity - Urine 1.015 (1.005-1.025); UMIC TRIGGER UACC YES; Urine Blood Negative (Negative); Urine Ketones Negative (Negative); Urine Protein Negative (Neg-Trace)
--- OUTSIDE RECORDS SUMMARY | 2024-10-05 11:39 | XMS_ITS | Clinical Summary ---
Author Organization [facility] Address [address] [place] [address] Phone Care Team Providers Care Label Remover Name Role Phone Malik Douglas MD Primary Care Provider Allergies Active Allergy Reactions Criticality Noted Date Comments Codeine 08/16/2021 Erythromycin GI intolerance 08/16/2021 Levofloxacin Hives Medium 05/01/2012 Lisinopril Other (see comments) 01/28/2021 Pneumococcal Vac Polyvalent Other (see comments) 01/28/2021 Medications fluticasone (FLONASE) 50 MCG/ACT nasal spray Administer 1 spray into each nostril 1 (one) time each day Active gabapentin (NEURONTIN) 100 MG capsule Take 1 capsule by mouth 1 (one) time each day Active levothyroxine (SYNTHROID, LEVOTHROID) 88 MCG tablet Take 1 tablet by mouth 1 (one) time each day Active zolpidem (AMBIEN) 5 MG tablet Take 1 tablet by mouth at bed time Active gabapentin (NEURONTIN) 300 MG capsule Take 1 capsule by mouth at bed time 3 Active losartan (COZAAR) 100 MG tablet Take 1 tablet (100 mg total) by mouth 1 (one) time each day 90 tablet 5 3 Active amLODIPine (NORVASC) 5 MG tablet Take 1 tablet (5 mg total) by mouth 1 (one) time each day 90 tablet 3 3 Active Active Problems Problem Noted Date Diagnosed Date Bronchiectasis 11/26/2021 Overview (03/17/2022): Last Assessment & Plan: Recommend she stick with her DuoNeb and HyperSal at least once a day. I would say first thing in the morning is ideal. Imaging result abnormal 11/26/2021 Overview (03/17/2022): Last Assessment & Plan: CT of the chest also picked up an abnormal lesion in the liver. Will order liver ultrasound and have advised patient to follow-up with her primary care doctor and her jig boring machine set up operator regarding this. Persistent cough 09/28/2021 Overview (03/17/2022): Last Assessment & Plan: Cough could be related to postnasal drip. For now we will just try some Tessalon Perles. Recurrent pneumonia 09/28/2021 Overview (03/17/2022): Last Assessment & Plan: Concern for possible right middle lobe syndrome and anatomic variant that makes you more prone to pneumonia. Will check CT chest. We will also check IgG subtypes and sed rate / CRP to evaluate for possible bronchiolitis obliterans organizing pneumonia. Patient has not gotten the pneumonia vaccine. She says when she first got it many years ago she had pneumonia soon after and so she has been fearful of getting that vaccine. We will hold off today since we are likely to want to give her polysaccharide vaccine if her IgG levels turntable man to be low. Stricture of esophagus 09/28/2021 Overview (03/17/2022): Last Assessment & Plan: I will order a barium swallow to see if the esophageal stricture is worse than she is thinking. Does seem to have significant reflux symptoms as well. I did advise her to follow-up with GI sooner if the esophagitis progresses. Incomplete uterovaginal prolapse 07/29/2021 Overview (03/17/2022): Pessary placed 07/29/2021--able to manage on own. Doing well. Paitent has apt with [facility] [place] office for discussion of surgical options. Vaginal pessary in situ 07/29/2021 Overview (03/17/2022): #[address] 07/29/2021. Good correction of anatomic defects. She would like to try to manage at home. Instructed her removal and reinsertion prn. Last Assessment & Plan: F/up 4 weeks for reevaluation Hypo-osmolality and or hyponatremia 01/28/2021 Essential hypertension 05/01/2012 Overview (01/28/2021): Benign hypertension; borderline hypertension, never on medication previously. SBP was >180 prior to colonoscopy last week. She attributes the elevated BP to anxiety and lack of sleep. Resolved Problems Problem Noted Date Diagnosed Date Resolved Date History of total hip arthroplasty 08/23/2012 01/28/2021 Overview (01/28/2021): S/P Total replacement of hip Constipation 05/01/2012 01/28/2021 Overview (01/28/2021): Constipation; taking OTC fiber supplement. Hypothyroidism 05/01/2012 01/28/2021 Overview (01/28/2021): Hypothyroidism; TSH checked every 6 months by PCP, has been on the same dose of synthroid many years. Osteoarthritis 05/01/2012 01/28/2021 Overview (01/28/2021): Osteoarthritis - right hip; pain for 3-4 years, affects sleeping, wakes up every couble of hours from pain. Had multiple injections. Immunizations Name Administration Dates Next Due Media Time Conseil SARS-COV-2 10/18/2020 Pfizer SARS-COV-2 10/18/2020 Pneumococcal Conjugate 13-Valent 10/14/2021 Pneumococcal Polysaccharide 08/25/2010 Family History Medical History Relation Comments Diabetes Father Relation Status Comments Father Mother Social History Tobacco Use Types Packs/Day Years Used Date Smoking Tobacco: Never Smokeless Tobacco: Never Tobacco Cessation:Counseling Given: Not Answered Alcohol Use Standard Drinks/Week Comments Yes 0 (1 standard drink = 0.6 oz pure alcohol) Alcoholic Drinks/day: Occasional social drink Comments Unknown Sex and Gender Information Value Date Recorded Sex Assigned at Not on file Legal Sex Female 4:45 PM EST Gender Identity Not on file Sexual Orientation Not on file Last Filed Vital Signs Vital Sign Reading Time Taken Comments Blood Pressure 122/70 04/06/2023 4:01 PM EDT Pulse 59 04/06/2023 4:01 PM EDT Temperature - - Respiratory Rate - - Oxygen Saturation 98% 01/28/2021 1:24 PM EDT Inhaled Oxygen Concentration - - Weight 59 kg (130 lb) 04/06/2023 4:01 PM EDT Height 162.6 cm (5' 4 ) 02/01/2020 12:00 PM EDT Body Mass Index 22.31 02/01/2020 12:00 PM EDT Plan of Treatment Health Maintenance Due Date Last Done Comments Breast Cancer Screening 1950 Colorectal Cancer Screening: Annual FOBT 1998 Colorectal Cancer Screening: Colonoscopy 1998 Colorectal Cancer Screening: Sigmoidoscopy 1998 Pneumococcal Vaccine: 65+ Years (3 of 3 - PPSV23 or PCV20) 12/09/2021 10/14/2021, 08/25/2010 Influenza Vaccine (#1) 2024 Hepatitis B Vaccine Aged Out No longe r eligible based on patient's age to complete this topic Insurance [facility] Care Teams Label Remover Relationship Specialty Start Date End Date Malik Douglas MD [address] [place], [place] PCP - General 08/25/20
--- OUTSIDE RECORDS SUMMARY | 2024-10-05 11:39 | XMS_ITS ---
Author Organization Malik Douglas MD Address [address] [place] [phone] Care Team Providers Care Floor Renovator Name Role Phone Malik Douglas Primary Care Provider REASON FOR VISIT RF Gabapentin 100mg Medications Medication SIG (Take, Route, Fr equency, Duration) Notes Start Date End Date Status Gabapentin 100 MG take 1 capsule daily Orally Once a day for 90 days Active Encounters Encounter Location Date Provider Diagnosis Malik Douglas MD [address] [place], [place] [phone] 10/05/2024 Malik Douglas Loss of balance R26.89 Assessments Encounter Date Diagnosis (ICD Code) Assessment Notes Treatment Notes Treatment Clinical Notes Section Notes 10/05/2024 Loss of balance (ICD-10 - R26.89) Plan Of Treatment Medication Medication Name Sig Start Date Stop Date Notes Gabapentin 100 MG take 1 capsule daily Orally Once a day for 90 days Next Appt Details Provider Name:Malik Dunne ier, 01/08/2025 08:00:00 AM, [address], [address], [place], [place], [phone], Provider Name:Malik Dunne ier, 01/14/2025 10:30:00 AM, [address], [address], [place], [phone], Progress Notes * Deborah HARDY MDOB: (74 yo F)Acc No.[id number]:10/05/2024 Patient:?Deborah HARDY :1950???Age:74 Y???Sex:Female Address:[address] [place] [address], [place] [address] * Refills? Refill Gabapentin Capsule, 100 MG, Orally, 90, take 1 capsule daily, Once a day, 90 days, Refills=2 * * Date:?
--- OUTSIDE RECORDS SUMMARY | 2024-10-05 11:39 | XMS_ITS | Clinical Summary ---
Author Organization [facility] Address [phone] [facility] [place] [address] Care Team Providers Care Staff Climate Scientist Name Role Phone Malik Douglas MD Primary Care Provider Allergies Active Allergy Reactions Criticality Noted Date Comments Codeine 08/16/2021 Erythromycin GI Upset 08/16/2021 Levofloxacin Hives Medium 05/01/2012 Lisinopril Other (See Comments),Cough 01/28/2021 Pneumococcal Vaccine Unknown 04/15/2022 Other Reaction(s): swelling and redness, had one 2022 and was fine Medications Medication Sig Dispensed Refills Start Date End Date Status multivitamin per tablet Take 1 tablet by mouth daily. Active losartan (COZAAR) 100 MG tablet 1 Active amLODIPine (NORVASC) 5 MG tablet Take 5 mg by mouth daily. 1 Active gabapentin (NEURONTIN) 300 MG capsule 1 Active albuterol 90 mcg/actuation inhaler 1 Active sodium chloride (HYPERSAL) 7 % Nebu Take 4 mL by nebulization 2 (two) times a day. 240 mL 6 2 Active nebulizer and compressor Annika 1 Device by Miscellaneous route 2 (two) times a day. Disposable neb kit 2/mo Permanent neb kit 1/6 mo Disposable neb filter 2/mo A7005 Non-disposable neb kit Q6mo A7003 Neb administration kit x 2/mo A7006 Filtered neb kit Qmo A7004 Disposable neb kit x 2/mo A7013 Disposable filter x 2/mo A7014 Non-disposable filter Q3mo A7015 Aersol Mask Qmo 1 each 2 Active albuterol 2.5 mg/0.5 mL nebulizer solution Take 0.5 mL (2.5 mg total) by nebulization every 6 (six) hours as needed for wheezing. 240 mL 11 2 Active SYNTHROID 88 mcg tablet 2 Active acetaminophen (TYLENOL) 325 mg tablet Take 2 tablets (650 mg total) by mouth every 6 (six) hours as needed. 0 4 Active ibuprofen (ADVIL,MOTRIN) 200 MG tablet Take 2 tablets (400 mg total) by mouth every 6 (six) hours as needed for pain (specific location in comments). 4 Active docusate sodium (COLACE) 100 MG capsule Take 1 capsule (100 mg total) by mouth 2 (two) times a day. While taking oxycodone and until regular BM pattern is reestablished 4 Active polyethylene glycol (MIRALAX) 17 gram/dose powder Take 17 g by mouth 2 (two) times a day. If no BM by Tuesday. 4 Active estradioL (ESTRACE) 0.01 % (0.1 mg/gram) vaginal creamIndication s:Atrophic vaginitis Place vaginally 2 (two) times a week. 42 g 1 4 Active escitalopram oxalate (LEXAPRO) 10 MG tablet Take 10 mg by mouth daily. 4 Active nitrofurantoin (MACROBID) 100 MG capsuleIndicati ons:Dysuria Take 1 capsule (100 mg total) by mouth 2 (two) times a day. 10 capsule 5 Active nitrofurantoin (MACROBID) 100 MG capsuleIndicati ons:Dysuria Take 1 capsule (100 mg total) by mouth 2 (two) times a day. 10 capsule 4 09/19/19 25 Discontinued Active Problems Problem Noted Date Diagnosed Date Dysthymia 01/10/2024 Positive JAY (antinuclear antibody) 12/07/2022 Overview (12/07/2022): JAY 1:80 09/2021 and 12/2021; obtained as ? part of neutropenia w/u all ENAs neg; inflammatory markers nl; no urine protein Assessment & Plan (12/07/2022 10:12 AM EDT): Borderline JAY 1:80 (persistent) of questionable clinical significance in absence of historical, physical, or other serologic evidence concerning for SLE, systemic sclerosis, or related connective tissue disease. Absence of Raynaud's is reassuring. Documented h/o neutropenia though this has resolved as of most recent labs available for my review today (06/2022). No indication to trend JAY. No current indication for further rheumatology w/u or ongoing rheumatology-specific mgmt though happy to re-evaluate for any clinically significant change. Age-related osteoporosis wit hout current pathological fracture 12/07/2022 Assessment & Plan (12/07/2022 10:11 AM EDT): Most recent DEXA findings not available for my review today. Patient vaguely recalls pharmacotherapy rx'd by her OBGYN that she was unable to tolerate due to GI side effects. We briefly discussed non-oral options including zoledronic acid and denosumab. She will f/u with her PCP for further discussion. Bronchiectasis without complication 11/26/2021 Assessment & Plan (04/28/2023 10:28 AM EDT): Recommend using DuoNeb and HyperSal daily during the renetta and winter months when she is most likely to get a bronchiectasis exacerbation. If she actually does get sick she should bring that to twice a day. Okay to be off of this in the summertime when she is well. Assessment & Plan (09/17/2022 11:10 AM EST): Recommend continue with DuoNeb DuoNeb and HyperSal and increasing it to twice a day. Would add Mucinex or similar kind of oral decongestant. I think she would benefit from a chest vest. We will order from DME. She should use that at least once a day. Assessment & Plan (06/15/2022 10:35 AM EDT): Continue with Duoneb and HyperSal at least once a day. Consider increasing to twice a day in the winter months or when you get a URI. Assessment & Plan (03/08/2022 9:47 AM EDT): Recommend she stick with her DuoNeb and HyperSal at least once a day. I would say first thing in the morning is ideal. Assessment & Plan (11/26/2021 1:08 PM EDT): Recommend starting DuoNeb and HyperSal twice daily via nebulizer for 2 weeks. After this okay to back off to once a day. Recurrent pneumonia 09/28/2021 Assessment & Plan (04/28/2023 10:29 AM EDT): CT chest is looking stable. Will monitor as needed at this time. Assessment & Plan (06/15/2022 10:36 AM EDT): Several months since last pneumonia, which was in September. Cont to monitor closely. 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 Persistent cough for 3 weeks or longer Assessment & Plan (09/17/2022 11:11 AM EST): We will plan to repeat CT chest in 6 months to ensure improvement. She is at risk for a recurrent pneumonia if we can't clear this mucus. Assessment & Plan (09/28/2021 3:43 PM EST): Cough could be related to postnasal drip. For now we will just try some Tessalon Perles. Esophageal stricture 09/28/2021 Assessment & Plan (12/07/2022 10:09 AM EDT): H/o stricture is relative contraindication to oral bisphosphonates Assessment & Plan (06/15/2022 10:37 AM EDT): No stricture noted on barium swallow. Some coating of epiglottis with no cough reflex but no shelia aspiration. Patient states she eats mindfully. Assessment & Plan (03/08/2022 9:48 AM EDT): I will order a barium swallow to see if the esophageal stricture is worse than she is thinking. Does seem to have significant reflux symptoms as well. I did advise her to follow-up with GI sooner if the esophagitis progresses. Assessment & Plan (11/26/2021 1:09 PM EDT): Possibility that esophageal stricture is worsening and contributing to her recurrent pneumonias. If she continues to have them I would recommend getting a barium swallow and seeing whether or not there is a significant lesion that needs dilatation at this time. Assessment & Plan (09/28/2021 3:44 PM EST): Patient has recurrent esophageal strictures that are ballooned by Dr. Gustafson. Last time was about a year ago. She usually has symptoms of inability to swallow foods such as chicken. Currently her swallowing feels fine. Does bring up possibility of recurrent aspiration as a cause of her recurrent pneumonia. Uterovaginal prolapse, incomplete 07/29/2021 Overview (12/06/2023): TVH, anterior repair, sling performed with good results Hypo-osmolality and hyponatremia 01/28/2021 History of total hip replacement 08/23/2012 Overview (10/05/2014): S/P Total replacement of hip Osteoarthritis 05/01/2012 Overview (12/07/2022): s/p right LAURE and left great toe bunionectomy Assessment & Plan (12/07/2022 10:10 AM EDT): No historical or physical evidence s/o underlying or co-morbid inflammatory arthritis Hypothyroidism 05/01/2012 Overview (10/05/2014): Hypothyroidism; TSH checked every 6 months by PCP, has been on the same dose of synthroid many years. Essential hypertension 05/01/2012 Overview (03/11/2021): Benign hypertension; borderline hypertension, never on medication previously. SBP was >180 prior to colonoscopy last week. She attributes the elevated BP to anxiety and lack of sleep. Benign hypertension; borderline hypertension, never on medication previously. SBP was >180 prior to colonoscopy last week. She attributes the elevated BP to anxiety and lack of sleep. Constipation 05/01/2012 Overview (10/05/2014): Constipation; taking OTC fiber supplement. Resolved Problems Problem Noted Date Diagnosed Date Resolved Date Abnormal finding on imaging 11/26/2021 11/04/2022 Assessment & Plan (11/26/2021 1:09 PM EDT): CT of the chest also picked up an abnormal lesion in the liver. Will order liver ultrasound and have advised patient to follow-up with her primary care doctor and her contact representative regarding this. Vaginal pessary in situ 07/29/202111/14 Overview (07/29/2021): #[address] 07/29/2021. Good correction of anatomic defects. She would like to try to manage at home. Instructed her removal and reinsertion prn. Assessment & Plan (07/29/2021 1:15 PM EST): F/up 4 weeks for reevaluation Encounters Date Type Department Care Team Description 09/25/2024 1:28 PM EST - 09/25/2024 11:59 PM EST Hospital Encounter [facility], X-Ray - [address] [place], [place] [address] Malik Douglas MD Discharge Disposition: Home or Self Care 09/25/2024 Transcribe Orders Virtual Department [address] [place] [address] Malik Douglas MD Cough, unspecified type (Primary Dx) 09/19/2024 10:57 AM EST - 09/19/2024 11:59 PM EST Hospital Encounter [facility] [address] [place] [address] [place] [address] Billy Gibson MD Discharge Disposition: Home or Self Care 09/19/2024 Telephone [facility] [address] [place] [address] Taina Bingham [employer] 08/01/2024 2:11 PM EST - 08/01/2024 11:59 PM EST Hospital Encounter [facility], X-Ray - [address] [place] [address] Malik Douglas MD Discharge Disposition: Home or Self Care 07/31/2024 Transcribe Orders Virtual Department [address] [place] [address] Malik Douglas MD Pneumonia due to infectious organism, unspecified laterality, unspecified part of lung (Primary Dx) from Last 3 Months Immunizations Name Administration Dates Next Due COVID-19 (Pre-06/06) Jorge Vaccine, rS-Ad26, P F 10/18/2020 COVID-19 (Pre-06/06) Pfizer Vaccine, mRNA, PF Influenza High-Dose Quadrivalent Preservative Fr ee IM 06/04/2022 Influenza Quadrivalent Preservative Free IM 04/16 Pneumococcal conjugate PCV13 10/14/2021 Pneumococcal polysaccharide PPSV23 08/25/2010 Family History Medical History Relation Comments Esophageal cancer Father Malignant tumo r of esophagus Cancer Mother bile duct cancer Hypertension Son Relation Status Comments Father (Age 76) Mother Son Social History Tobacco Use Types Packs/Day Years Used Date Smoking Tobacco: Never Smokeless Tobacco: Never Tobacco Cessation:Counseling Given: Not Answered Alcohol Use Standard Drinks/Week Comments Not Currently 0 (1 standard drink = 0.6 oz pur e alcohol) Education Answer Date Recorded Are you interested in more education? Not on anusha e 12/10/2022 Are you concerned about learning? Not on file 12/10/2022 No 12/10/2022 No 12/10/2022 Digital Access Answer Date Recorded No 01/09/2023 No 01/09/2023 Reliable internet access at home? Not on file 01/09/2023 Device with a working camera? Not on file Intimate Partner Violence Answer Date R ecorded Are you denied basic needs s uch as food, clothing, or medical care? No 11/08/2023 In the past 12 months have y ou been in a relationship with a person who hurts, threatens, or tries to control you? No 11/08/2023 Are you denied basic needs s uch as food, clothing, or medical care? No 11/08/2023 In the past 12 months have y ou been in a relationship with a person who hurts, threatens, or tries to control you? No 11/08/2023 Sex and Gender Information Value Date Recorded Sex Assigned at Not on file Gender Identity Not on file Sexual Orientation Not on file Last Filed Vital Signs Vital Sign Reading Time Taken Comments Blood Pressure 138/80 01/10/2024 2:33 PM EDT Pulse 73 11/09/2023 6:13 PM EDT Temperature 37.3 ??C (99.1 ??F) 11/09/2023 6:13 PM ED T Respiratory Rate 18 11/09/2023 6:13 PM EDT Oxygen Saturation 98% 11/09/2023 6:13 PM EDT Inhaled Oxygen Concentration - - Weight 58.5 kg (129 lb) 01/10/2024 2:33 PM EDT Height 157.5 cm (5' 2 ) 01/10/2024 2:33 PM EDT Body Mass Index 23.59 01/10/2024 2:33 PM EDT Plan of Treatment Upcoming Encounters Date Type Department Care Team (Late st Contact Info) Description 11/14/2024 8:00 AM EDT Office Visit [facility] [address] [place] [address] [place] [address] Billy Gibson MD [address] [place] [address], [address] [place] [address] [email or web address] Health Maintenance Due Date Last Done Comments Adult Td,Tdap Booster 1949 LIPID PANEL 1949 TSH LEVEL 1949 DEPRESSION SCREENING 1961 HEPATITIS B SCREENING 1967 HEPATITIS C SCREENING 1967 COLOGUARD 1994 COLONOSCOPY 1994 COLORECTAL CANCER SCREENING 1994 FIT TEST 1994 FOBT 1994 SIGMOIDOSCOPY 1994 VIRTUAL COLONOSCOPY 1994 ZOSTER VACCINES (1 of 2) 1999 OSTEOPOROSIS SCREENING INITIAL (ONE-TIME) 2014 INFLUENZA VACCINE (#1) 2024 05/10/2023, 2021 RSV VACCINE (1 - 1-dose 75+ series) 2024 COVID-19 VACCINE ( season) 2024 09/03/2022, 08/27/2021, 10/18/2020, Additional history exists BLOOD PRESSURE 07/12/2024 01/10/2024 CREATININE LEVEL 11/06/2024 11/07/2023, , 05/01/2012 POTASSIUM LEVEL 11/06/2024 11/07/2023, 04/16, 05/01/2012 SMOKING STATUS SCREENING (Once After 26 Yrs) Completed 01/10/2024 HEPATITIS A VACCINES Aged Out No long er eligible based on patient's age to complete this topic HEPATITIS B VACCINES Aged Out No long er eligible based on patient's age to complete this topic HIB VACCINES Aged Out No longer eligi ble based on patient's age to complete this topic MENINGOCOCCAL VACCINES (ACWY) Aged Out No longer eligible based on patient's age to complete this topic Medical Devices Implanted Type Area [employer] Maintainer Device Identifier Shelf Expiration Date Model / Serial / Lot Mesh Mesh Urinary Bladder Pin Pin Left: Toe Prosthetic Joint Prosthetic Joint Right: Hip Sling Incontinence Miduretheral Obtryx Ii Halo Transobturator - [id number] Implanted:Qty: 1 on 11/08/2023 by Billy Gibson MD at [facility] N/A: [employer]UAN [id number] 04/12/2026 [id number] / / [id number] 2 Procedures Procedure Name Priority Date/Time Associated Diagnosis Comments XR CHEST PA AND LATERAL 2 VIEWS Routine 09/25/2024 1:50 PM EST Cough, unspecified type URINE SEDIMENT Routine 09/19/2024 11:05 AM EST URINALYSIS W/REFLEX URINE CULTURE Routine 09/19/2024 11:05 AM EST Dysuria URINE CULTURE Routine 09/19/2024 11:05 AM EST XR CHEST PA AND LATERAL 2 VIEWS Routine 08/01/2024 2:27 PM EST Pneumonia due to infectious organism, unspecified laterality, unspecified part of lung BASIC METABOLIC PANEL Routine 11/07/2023 7:57 AM EDT Urinary frequency from Last 3 Months or Most Recently Relevant to Health Maintenance Results * XR CHEST PA AND LATERAL 2 VIEWS (09/25/2024 1:50 PM EST) Anatomical Region Laterality Modality Chest Computed Radiogr aphy 09/25/2024 2:40 PM EST Impressions 09/25/2024 2:41 PM EST No acute intrathoracic process is identified. Scoliosis. Narrative 09/25/2024 2:41 PM EST XR CHEST PA AND LATERAL 2 VIEWS Referring clinician's provided indication for this examination in [facility]: Cardiac screening, prior to radiation therapy or cardiotoxic meds/chemo COMPARISON: Chest radiography dated August 01, 2024. Chest radiography dated May 29, 2024. FINDINGS: Devices/Tubes/Lines: None. Lungs: The lungs are clear. No focal consolidation or pulmonary edema. Pleura: No pleural effusion or pneumothorax. Heart/Mediastinum: The heart size is normal. No acute hilar or mediastinal abnormalities are identified. Bones/Soft Tissues: Mild vertebral endplate degenerative changes. S-type scoliotic curvature. No acute osseous or soft tissue findings. Procedure Note Nine, Leonel Edwards MD - 02/11/2025 XR CHEST PA AND LATERAL 2 VIEWS Referring clinician's provided indication for this examination in [facility]:Cardiac screening, prior to radiation therapy or cardiotoxic meds/chemo COMPARISON: Chest radiography dated August 01, 2024. Chest radiographydated May 29, 2024. FINDINGS: Devices/Tubes/Lines: None. Lungs: The lungs are clear. No focal consolidation or pulmonary edema. Pleura: No pleural effusion or pneumothorax. Heart/Mediastinum: The heart size is normal. No acute hilar or mediastinalabnormalities are identified. Bones/Soft Tissues: Mild vertebral endplate degenerative changes. S- typescoliotic curvature. No acute osseous or soft tissue findings. IMPRESSION: No acute intrathoracic process is identified. Scoliosis. Malik Douglas MD IMG XR CHEST * (ABNORMAL) Urinalysis w/reflex Urine Culture (09/19/2024 11:05 AM EST) COLOR Yellow Yellow [facility] CLARITY Other [facility] GLUCOSE Negative Negative [facility] BILI Negative Negative [facility] KETONES Trace(A) Negative [facility] SPECIFIC GRAVITY 1.015 1.005 - 1.030 [facility] BLOOD 1+(A) Negative [facility] PH 6.0 5.0 - 8.0 [facility] Protein-UA Negative Negative [facility] NITRITE Negative Negative [facility] Leukocyte esterase, ur 1+(A) Negative [facility] Urine (Urine) 09/19/2024 11: 05 AM EST 09/19/2024 11:07 AM EST Billy Gibson MD URINE ORDERABLES [address] [id number] * (ABNORMAL) Urine Culture (09/19/2024 11:05 AM EST) Special Requests None Reflexed from [id number] 09/19/2024 3:25 PM EST [facility] Urine Culture >100,000 colony forming units per mL ESCHERICHIA COLI(A) 09/20/2024 11:23 AM EST [facility] Urine 09/19/2024 11:0 5 AM EST 09/19/2024 11:07 AM EST Narrative Organism Antibiotic Method Susceptibility Escherichia coli Ampicillin JANETTE METHOD <=2: Susceptible Escherichia coli Amoxicillin + Clavulanate JANETTE METHOD <=2: Susceptible Escherichia coli Ampicillin + Sulbactam JANETTE METHOD <=2: Susceptible Escherichia coli Cefazolin JANETTE METHOD <=4: Susceptible Escherichia coli Cefepime JANETTE METHOD <=1: Susceptible Escherichia coli Ceftazidime JANETTE METHOD <=1: Susceptible Escherichia coli Ceftriaxone JANETTE METHOD <=1: Susceptible Escherichia coli Ciprofloxacin JANETTE METHOD <=0.25: Susceptible Escherichia coli Extended Spectrum B-lactamase JANETTE MET HOD Negative Escherichia coli Gentamicin JANETTE METHOD <=1: Susceptible Escherichia coli Levofloxacin JANETTE METHOD 1: Susceptible Escherichia coli Nitrofurantoin JANETTE METHOD <=16: Susceptible Escherichia coli Piperacillin-tazobactam JANETTE METHOD <=4: Susceptible Escherichia coli Trimethoprim/sulfamethoxazole JANETTE MET HOD <=20: Susceptible Comment: Billy Gibson MD MICROBIOLOGY - GENER AL ORDERABLES Performing Organization Address City/[facility]/ZIP Co de Phone Number [address] [address] * (ABNORMAL) Urine sediment (09/19/2024 11:05 AM EST) WBC TOO NUMEROUS TO COUNT(A) NONE SEEN /hpf [facility] RBC NONE SEEN NONE SEEN /hpf [facility] URINE EPITHELIAL NONE SEEN NONE SEEN [facility] MUCUS NONE SEEN NONE SEEN /hpf [facility] BACTERIA 1+(A) NONE SEEN /hpf [facility] 09/19/2024 11:0 5 AM EST 09/19/2024 11:07 AM EST Billy Gibson MD URINE ORDERABLES Performing Organization Address [facility]/ZIP Co de Phone Number [address] [address] * XR CHEST PA AND LATERAL 2 VIEWS (08/01/2024 2:27 PM EST) Anatomical Region Laterality Modality Chest Computed Radiogr aphy 08/01/2024 4:20 PM EST Impressions 08/01/2024 4:22 PM EST Similar reticulonodular opacities and bronchiectasis in the right middle lobe corresponding with findings of prior CT. No new focal consolidation. Narrative 08/01/2024 4:22 PM EST XR CHEST PA AND LATERAL 2 VIEWS Referring clinician's provided indication for this examination in Epic: Pneumonia; pneumonia COMPARISON: XR CHEST OUTSIDE (NO INTERPRETATION) ; CT CHEST WITHOUT CONTRAST ; XR CHEST PA AND LATERAL 2 VIEWS FINDINGS: Devices/Tubes/Lines: None. Lungs: There are similar reticulonodular opacities and bronchiectasis in the right middle lobe corresponding with findings of prior CT. No new focal consolidation. Pleura: No pleural effusion or pneumothorax. Heart/Mediastinum: There is similar radiographic appearance of the cardiomediastinal silhouette. Bones/Soft Tissues: No acute skeletal abnormality. Procedure Note Marimar Grayson MD - 08/01/2024 XR CHEST PA AND LATERAL 2 VIEWS Referring clinician's provided indication for this examination in Epic:Pneumonia; pneumonia COMPARISON: XR CHEST OUTSIDE (NO INTERPRETATION) ; CT CHESTWITHOUT CONTRAST ; XR CHEST PA AND LATERAL 2 [id number] FINDINGS: Devices/Tubes/Lines: None. Lungs: There are similar reticulonodular opacities and bronchiectasis inthe right middle lobe corresponding with findings of prior CT. No newfocal consolidation. Pleura: No pleural effusion or pneumothorax. Heart/Mediastinum: There is similar radiographic appearance of thecardiomediastinal silhouette. Bones/Soft Tissues: No acute skeletal abnormality. IMPRESSION: Similar reticulonodular opacities and bronchiectasis in the right middlelobe corresponding with findings of prior CT. No new focalconsolidation. Malik Douglas MD IMG XR CHEST * (ABNORMAL) Basic metabolic panel (11/07/2023 7:57 AM EDT) SODIUM 134 133 - 146 mmol/L [facility] CHLORIDE 96 96 - 108 mmol/L [facility] POTASSIUM 4.2 3.3 - 5.1 mmol/L [facility] CO2 27 21 - 35 mmol/L [facility] BUN 13 6 - 19 mg/dL [facility] CREATININE 0.40(L) 0.5 - 1.5 mg/dL [facility] GLUCOSE 57(L) 70 - 99 mg/dL [facility] CALCIUM 9.5 8.4 - 10.3 mg/dL [facility] EGFR 104 >59 mL/min/1.7 3m2 [facility] Comment:Estimated glomerular filtration rate calculated using the CKD-EPI refit equation. ANION GAP 15 10 - 20 mmol/L [facility] Blood 11/07/2023 7:57 AM EDT 11/07/2023 9:29 AM EDT Billy Gibson MD LAB BLOOD ORDERABLES [facility] [address] [place] [address] from Last 3 Months or Most Recently Relevant to Health Maintenance Advance Directives Documents on File Type Date Recorded Patient Hr Recruiter Expl anation Healthcare Proxy 11/10/2023 11:31 AM * Full Code (Latest Code Status on File) Date Activated Date Inactivated Comments 11/08/2023 10:36 AM Question Answer Comments Code Status Confirmed With: Patient * Full Code Date Activated Date Inactivated Comments 11/08/2023 7:27 AM 11/08/2023 10:36 AM Question Answer Comments Code Status Confirmed With: Patient Care Teams Staff Climate Scientist Relationship Specialty Start Date End Date Malik Douglas MD [address] [place] [address] [place] [address] PCP - General Internal Medicine 01/18/14 Additional Source Comments The information contained in this document represents components of the legal health record. It is not the complete legal health record.[facility]
--- OUTSIDE RECORDS SUMMARY | 2024-10-05 11:39 | XMS_ITS | Encounter Summary ---
Author Organization [facility] Address [phone] [facility] [place] [address] Care Team Providers Care Crayon Painter Name Role Phone Malik Douglas MD Primary Care Provider Encounter Details Date Type Department Care Team (Late st Contact Info) Description 11/08/2023 Procedure Pass OR Admitting Dept - Virtual Department [address] [place] [address] Social History Tobacco Use Types Packs/Day Years Used Date Smoking Tobacco: Never Smokeless Tobacco: Never Alcohol Use Standard Drinks/Week Comments Not Currently [...] on file Sexual Orientation Not on file documented as of this encounter Plan of Treatment Upcoming Encounters Date Type Department Care Team (Late st Contact Info) Description 11/14/2024 8:00 AM EDT Office Visit [facility] [address] [place] [address] [place] [address] Billy Gibson MD [address] [place] [address], [address] [place] [address] [email or web address] documented as of this encounter Visit Diagnoses Not on filedocumented in this encounter Care Teams Crayon Painter Relationship Specialty Start Date End Date Malik Douglas MD [address] [place] [address] [place] [address] PCP - General Internal Medicine 01/18/14 documented as of this encounter Additional Source Comments The information contained in this document represents components of the legal health record. It is not the complete legal health record.[facility]
--- OUTSIDE RECORDS SUMMARY | 2024-10-05 11:39 | XMS_ITS | Encounter Summary ---
Author Organization [facility] Address [phone] [place] [address] Care Team Providers Care Hunter Trapper Name Role Phone Malik Douglas MD Primary Care Provider Encounter Details Date Type Department Care Team (Late st Contact Info) Description 07/31/2021 Ancillary Orders [employer],Outside Imaging [address] [place], [place] [id number] System, Provider Not In, [place] [address] Social History Tobacco Use Types Packs/Day Years Used Date Smoking Tobacco: Never Smokeless Tobacco: Never Alcohol Use Standard Drinks/Week Comments Yes 0 (1 standard drink = 0.6 oz pur e alcohol) socially Sex and Gender Information Value Date Recorded Sex Assigned at Not on file Gender Identity Not on file Sexual Orientation Not on file documented as of this encounter Plan of Treatment Upcoming Encounters Date Type Department Care Team (Late Contact Info) Description 11/14/2024 8:00 AM EDT Office Visit [facility] [address] [place] [address] [place] [address] Billy Gibson MD [address] [place] [address], [address] [place], [place] [phone] [email or web address] documented as of this encounter Results * XR Chest Outside (No Interpretation) (07/30/2021 12:00 AM EST) Narrative SYSTEMGENERATED, DOCUMENTATION - 07/31/2021 8:55 AM EST This study is for PACS storage only and not for interpretation. Provider Not In System PhD IMG OUTSIDE I MAGING W/OUT INTERPRETATION * XR Chest Outside (No Interpretation) (07/15/2021 12:00 AM EST) Narrative SYSTEMGENERATED, DOCUMENTATION - 07/31/2021 8:55 AM EST This study is for PACS storage only and not for interpretation. Provider Not In System PhD IMG OUTSIDE I MAGING W/OUT INTERPRETATION * XR Chest Outside (No Interpretation) (06/15/2021 12:00 AM EDT) Narrative SYSTEMGENERATED, DOCUMENTATION - 07/31/2021 8:54 AM EST This study is for PACS storage only and not for interpretation. Provider Not In System PhD IMG OUTSIDE I MAGING W/OUT INTERPRETATION * XR Chest Outside (No Interpretation) (06/02/2021 12:00 AM EDT) Narrative SYSTEMGENERATED, DOCUMENTATION - 07/31/2021 8:54 AM EST This study is for PACS storage only and not for interpretation. Provider Not In System PhD IMG OUTSIDE I MAGING W/OUT INTERPRETATION * XR Chest Outside (No Interpretation) (05/27/2021 12:00 AM EDT) Narrative SYSTEMGENERATED, DOCUMENTATION - 07/31/2021 8:53 AM EST This study is for PACS storage only and not for interpretation. Provider Not In System PhD IMG OUTSIDE I MAGING W/OUT INTERPRETATION documented in this encounter Visit Diagnoses Not on filedocumented in this encounter Additional Health Concerns Infection Onset Date Last Indicated Resolved Time CoV-Risk 08/16/2021 08/16/2021 08/25/2021 9:55 AM EST documented as of this encounter Care Teams Hunter Trapper Relationship Specialty Start Date End Date Malik Douglas MD [address] [place] [address] [place] [address] PCP - General Internal Medicine 01/18/14 documented as of this encounter Additional Source Comments The information contained in this document represents components of the legal health record. It is not the complete legal health record.[facility]
--- OUTSIDE RECORDS SUMMARY | 2024-10-05 11:39 | XMS_ITS | Encounter Summary ---
Author Organization [facility] Address [phone] [facility] [place] [address] Care Team Providers Care Overhauler Name Role Phone Malik Douglas MD Primary Care Provider Reason for Referral * Consultation (Elective) - Closed Specialty Diagnoses / Procedures Referred By Contac t Referred To Contact Pulmonary Disease Malik Douglas MD [address] [place] [address] Dr BAKER [address] [place] [address] [facility] Parent [address] [place] [address] Referral ID Status Reason Start Date Expiration Date Visits Re quested Visits Authorized [id number] Closed 07/27/2021 07/27/2022 1 1 Encounter Details Date Type Department Care Team (Late st Contact Info) Description 07/27/2021 Transcribe Orders [facility] Pulmonary, Allergy and Critical Care Medicine [address] [place] [address] Malik Douglas MD [address] [place] [address] [place] [address] Social History Tobacco Use Types Packs/Day Years [...] Office Visit [facility] [address] [place] [address] [place] [address] Billy Gibson MD [address] [place] [address], [address] [place] [address] [email or web address] Scheduled Referrals Name Type Priority Associated Diagnoses Order Schedule Ambulatory referral to [facility] Pulmonology Outpatient Referral Routine Ordered: 07/27/2021 documented as of this encounter Visit Diagnoses Not on filedocumented in this encounter Additional Health Concerns Infection Onset Date Last Indicated Resolved Time CoV-Risk 08/16/2021 08/16/2021 08/25/2021 9:55 AM EST documented as of this encounter Care Teams Overhauler Relationship Specialty Start Date End Date Malik Douglas MD [address] [place] [address] Dr BAKER [address] [place] [address] [place] [address] PCP - General Internal Medicine 01/18/14 documented as of this encounter Additional Source Comments The information contained in this document represents components of the legal health record. It is not the complete legal health record.[facility]
--- OUTSIDE RECORDS SUMMARY | 2024-10-05 11:39 | XMS_ITS ---
Author Organization Malik Douglas MD Address [address] [place] [phone] Care Team Providers Care Blender/Braze Applicator Name Role Phone Malik Douglas Primary Care Provider REASON FOR VISIT Repeat U/A Encounters Encounter Location Date Provider Diagnosis Malik Douglas MD [address] [place] [phone] 10/05/2024 aMlik Douglas Urinary tract infection without hematuria, site unspecified N39.0 Assessments Encounter Date Diagnosis (ICD Code) Assessment Notes Treatment Notes Treatment Clinical Notes Section Notes 10/05/2024 Urinary tract infection without hematuria, site unspecified (ICD-10 - N39.0) Plan Of Treatment Pending Test Test Name Order Date UA ClnCatch+Micro w/rflx Cult 10/05/2024 Next Appt Details Provider Name:Malik duron, 01/08/2025 08:00:00 AM, [address], [address], [place], [phone], Provider Name:Malik Dunne ier, 01/14/2025 10:30:00 AM, [address], [address], [place], [phone], Progress Notes * Deborah HARDY MDOB: (74 yo F)Acc No.[id number]:10/05/2024 Progress Note Patient:?ANTONYElviaDeborah M Provider:?Malik Douglas MD :1950???Age:74 Y???Sex:Female D ate:10/05/2024 Address:[address] [place] [address], [id number] Subjective: * Chief Complaints: * ???1. Repeat U/A. * Medical History:? Objective: * Vitals:? Assessment: * Assessment: 1.?Urinary tract infection w ithout hematuria, site unspecified - N39.0 (Primary)??? Plan: * Treatment: * * The named appointment provid er may or may not be the originator of this progress note, and it is not deemed complete until electronically signed by the appointment provider. Sign off status: Pending * Provider:?Malik Douglas MD Date:?0 10/05/2024 Generated for Germania lan/Annalise/eTkassandrasmitting on:?10/05/2024 11:39 AM EST
--- OUTSIDE RECORDS SUMMARY | 2024-10-05 11:39 | XMS_ITS | Encounter Summary ---
Author Organization [facility] Address [phone] [place] [address] Care Team Providers Care Slide Fastener Chain Assembler Name Role Phone Malik Douglas MD Primary Care Provider Encounter Details Date Type Department Care Team (Late st Contact Info) Description 09/17/2022 Procedure Pass [facility], Ct Scan - [address] [address] Social History Tobacco Use Types Packs/Day Years [...] Description 11/14/2024 8:00 AM EDT Office Visit [facility]ery [address] [place] [address] [place] [address] Billy Gibson MD [address] [place] [address], [facility] [address] [place] [address] documented as of this encounter Visit Diagnoses Not on filedocumented in this encounter Care Teams Slide Fastener Chain Assembler Relationship Specialty Start Date End Date Malik Douglas MD [address] [place] [address] [place] [address] PCP - General Internal Medicine 6/6/14 documented as of this encounter Additional Source Comments The information contained in this document represents components of the legal health record. It is not the complete legal health record.[facility]
--- OUTSIDE RECORDS SUMMARY | 2024-10-05 11:39 | XMS_ITS | Encounter Summary ---
Author Organization [facility] Address [phone] [place] [address] Care Team Providers Care Patternmaker Wood Name Role Phone Malik Douglas MD Primary Care Provider Encounter Details Date Type Department Care Team (Late st Contact Info) Description 06/15/2022 Procedure Pass [facility], Ct Scan - [address] [address] Social History Tobacco Use Types Packs/Day Years [...] Description 11/14/2024 8:00 AM EDT Office Visit [facility] Midw[facility]ery [address] [place] [address] [place] [address] Billy Gibson MD [address] [place] [address], [facility] [address] [place] [address] documented as of this encounter Visit Diagnoses Not on filedocumented in this encounter Care Teams Patternmaker Wood Relationship Specialty Start Date End Date Malik Douglas MD [address] [place] [address] [place] [address] PCP - General Internal Medicine 6/6/14 documented as of this encounter Additional Source Comments The information contained in this document represents components of the legal health record. It is not the complete legal health record.[facility]
--- OUTSIDE RECORDS SUMMARY | 2024-10-05 11:39 | XMS_ITS | Encounter Summary ---
Author Organization [facility] Address [phone] [place] [address] Care Team Providers Care Emergency Communications Operator Name Role Phone Malik Douglas MD Primary Care Provider Reason for Visit * Reason Onset Date Comments Recurrent UTI 03/07/2024 Encounter Details Date Type Department Care Team (Late st Contact Info) Description 03/07/2024 Telephone [facility] [address] [place] [address] Deandre Manuel MD [address] [facility], [address] [place] [address] [email or web address] Recurrent UTI Social History Tobacco Use Types Packs/Day Years [...] on file documented as of this encounter Progress Notes * Mayi Li RN - 09/19/2024 10:23 AM EST Can you please confirm as I see the patient is scheduled for an appointment this afternoon * Stephany Mann - 09/19/2024 10:14 AM EST Pt has a recurring Uti and would like a urine sample sent into the lab. PT denies appt for today * Galina Mccann LPN - 03/08/2024 8:[address] Gibson send antibiotics to pt's pharmacy. Pt informed and will [employer] rx. Pt will call back if symptoms persist after tx. * Taina Bingham LPN - 03/07/2024 2:52 PM EDT Lab is currently in process. Hold for results. * Taina Bingham LPN - 03/07/2024 1:09 PM EDT Patient was notified to go to the lab as order has been placed. Hold for results. * Kendell Taviasorin - 03/07/2024 12:57 PM EDT Pt calling asking for orders to be placed to test for UTI started over the weekend per pt only sx she has is burning during urination documented in this encounter Plan of Treatment Upcoming Encounters Date Type Department Care Team (Late st Contact Info) Description 11/14/2024 8:00 AM EDT Office Visit [facility] Midwifery [address] [place] [address] [place] [address] Billy Gibson MD [address] [place] [address], [address] [address] [email or web address] documented as of this encounter Results * (ABNORMAL) Urinalysis w/reflex Urine Culture (03/07/2024 2:09 PM EDT) COLOR Yellow Yellow [facility] CLARITY CLOUDY [facility] GLUCOSE Negative Negative [facility] BILI Negative Negative [facility] KETONES Negative Negative [facility] SPECIFIC GRAVITY 1.015 1.005 - 1.030 [facility] BLOOD 2+(A) Negative [facility] PH 6.5 5.0 - 8.0 [facility] Protein-UA Negative Negative [facility] NITRITE Negative Negative [facility] Leukocyte esterase, ur 2+(A) Negative [facility] Urine (Urine) 03/07/2024 2:0 9 PM EDT 03/07/2024 2:14 PM EDT Billy Gibson MD URINE ORDERABLES [facility] [address] [place] [address] documented in this encounter Visit Diagnoses Diagnosis Dysuria- Primary documented in this encounter Care Teams Emergency Communications Operator Relationship Specialty Start Date End Date Malik Douglas MD [address] [place] [address] [place] [address] PCP - General Internal Medicine 01/18/14 documented as of this encounter Additional Source Comments The information contained in this document represents components of the legal health record. It is not the complete legal health record.[facility]
--- OUTSIDE RECORDS SUMMARY | 2024-10-05 11:39 | XMS_ITS | Encounter Summary ---
Author Organization [facility] Address [phone] [place] [address] Care Team Providers Care Street Openings Inspector Name Role Phone Malik Douglas MD Primary Care Provider Encounter Details Date Type Department Care Team (Late st Contact Info) Description 04/21/2018 Procedure Pass [facility] Endoscopy Admitting Dept Virtual Department [address] [place] [address] Social History Tobacco Use Types Packs/Day Years Used Date Smoking Tobacco: Never Alcohol Use Standard Drinks/Week Comments Not Asked 0 (1 standard drink = 0.6 oz pur e alcohol) Sex and Gender Information Value Date Recorded Sex Assigned at Not on file Gender Identity Not on file Sexual Orientation Not on file documented as of this encounter Plan of Treatment Upcoming Encounters Date Type Department Care Team (Late st Contact Info) Description 11/14/2024 8:00 AM EDT Office Visit [facility] [address] [place] [address] [place] [address] Billy Gibson MD [address] [place] [address], [facility] [address] [place] [address] documented as of this encounter Visit Diagnoses Not on filedocumented in this encounter Additional Health Concerns Infection Onset Date Last Indicated Resolved Time CoV-Risk 08/16/2021 08/16/2021 08/25/2021 9:55 AM EST documented as of this encounter Care Teams Street Openings Inspector Relationship Specialty Start Date End Date Malik Douglas MD [address] [place] [address] Dr DelaneyyoQUANG pinto [address] PCP - General Internal Medicine 01/18/14 documented as of this encounter Additional Source Comments The information contained in this document represents components of the legal health record. It is not the complete legal health record.[facility]
--- OUTSIDE RECORDS SUMMARY | 2024-10-05 11:39 | XMS_ITS | Encounter Summary ---
Author Organization [facility] Address [phone] [facility] [place] [address] Care Team Providers Care Locomotive Engineer Name Role Phone Malik Douglas MD Primary Care Provider Encounter Details Date Type Department Care Team (Late st Contact Info) Description 07/31/2024 Transcribe Orders Virtual Department [address] [place] [address] Malik Douglas MD [address] [place] [address] [place] [address] Pneumonia due to infectious organism, unspecified laterality, unspecified part of lung (Primary Dx) Social History Tobacco Use Types Packs/Day Years [...] Office Visit [facility] [address] [place] [address] [place] [address] Billy Gibson MD [address] [place] [address], [address] [place] [address] documented as of this encounter Results * XR CHEST PA AND LATERAL [...] ; XR CHEST PA AND LATERAL 2 [id number] FINDINGS: Devices/Tubes/Lines: None. Lungs: There are similar [...] focalconsolidation. Malik Douglas MD IMG XR CHEST documented in this encounter Visit Diagnoses Diagnosis Pneumonia due to infectious organism, unspecified laterality, unspecified part of lung- Primary Pneumonia due to infectious organism, unspecified laterality, unspecified part of lung documented in this encounter Care Teams Locomotive Engineer Relationship Specialty Start Date End Date Malik Douglas MD [address] [place] [address] [place] [address] PCP - General Internal Medicine 01/18/14 documented as of this encounter Additional Source Comments The information contained in this document represents components of the legal health record. It is not the complete legal health record.[facility]
--- OUTSIDE RECORDS SUMMARY | 2024-10-05 11:39 | XMS_ITS ---
Author Organization Malik Douglas MD Address [address] [place] [phone] Care Team Providers Care Dean Of Chapel Name Role Phone Malik Douglas Primary Care Provider Medications Medication SIG (Take, Route, Fr equency, Duration) Notes Start Date End Date Status Synthroid 88 MCG TAKE 1 TABLET ONCE D AILY INTHE MORNING ON AN EMPTY STOMACH Orally Once a day for 90 days Active Encounters Encounter Location Date Provider Diagnosis Malik Douglas MD [address] [place] [phone] 09/27/2024 Malik Douglas Acquired hypothyroidism E03.9 Assessments [...] Name:Malik Dunne ier, 01/08/2025 08:00:00 AM, [address], [address], [place], [phone], Provider Name:Malik Dunne ier, 01/14/2025 10:30:00 AM, [address], [address], [place], [phone], Progress Notes * Deborah HARDY MDOB: (74 yo F)Acc No.[id number]:09/27/2024 Patient:?Deborah HARDY :1950???Age:74 Y???Sex:Female Address:[address] [place] [phone] * Refills? Refill Synthroid Tablet, 88 MCG, Orally, 90, TAKE 1 TABLET ONCE DAILY INTHE MORNING ON AN EMPTY STOMACH, Once a day, 90 days, Refills=3 * true * Date:? Generated for Germania lan/Annalise/Adrianosmitting on:?10/05/2024 11:38 AM EST
--- OUTSIDE RECORDS SUMMARY | 2024-10-05 11:40 | XMS_ITS | Encounter Summary ---
Author Organization [facility] Address [phone] [facility] [place] [address] Care Team Providers Care Research Executive Name Role Phone Malik Douglas MD Primary Care Provider Encounter Details Date Type Department Care Team (Late st Contact Info) Description 09/19/2024 Telephone [facility] [address] [place] [address] Taina Binhgam LPN [address] [place] [address] [email or web address] Social History Tobacco Use Types Packs/Day Years [...] as of this encounter Progress Notes * Vicky Gibson MD - 09/19/2024 5:36 PM ESTAddended by: VICKY GIBSON M.D. on: 09/19/2024 05:36 PM Modules accepted: Orders * Vicky Gibson MD - 09/19/2024 5:34 PM EST Rx for macrobid sent to patient's pharmacy * Taina Bingham LPN - 09/19/2024 4:48 PM EST Results look suspicious for uti. Message to TK to review and advise. Patient was very uncomfortablethis morning. * Taina Bingham LPN - 09/19/2024 12:51 PM EST Labs is in process. Hold for results. * Taina Bingham LPN - 09/19/2024 10:30 AM EST Deborah is calling this morning with symptoms of a uti. She is having an urge to urinate and having some blood and burning. She would like to go to the lab to give a sample. Orders entered. documented in this encounter Plan of Treatment Upcoming Encounters Date Type Department Care Team (Late st Contact Info) Description 11/14/2024 8:00 AM EDT Office Visit [facility]YN [facility] Midwifery [address] [place] [address] [place] [address] Vicky Gibson MD [address] [facility], [address] [place] [address] [email or web address] documented as of this encounter Results * (ABNORMAL) Urinalysis w/reflex Urine Culture (09/19/2024 11:05 AM EST) COLOR Yellow Yellow [facility] CLARITY Other [facility] GLUCOSE Negative Negative [facility] BILI Negative Negative [facility] KETONES Trace(A) Negative [facility] SPECIFIC GRAVITY 1.015 1.005 - 1.030 [facility] BLOOD 1+(A) Negative [facility] PH 6.0 5.0 - 8.0 [facility] Protein-UA Negative Negative [facility] NITRITE Negative Negative [facility] Leukocyte esterase, ur 1+(A) Negative [facility] Urine (Urine) 09/19/2024 11: 05 AM EST 09/19/2024 11:07 AM EST Vicky Gibson MD URINE ORDERABLES [facility] [address] [place] [address] documented in this encounter Visit Diagnoses Diagnosis Dysuria- Primary documented in this encounter Care Teams Research Executive Relationship Specialty Start Date End Date Malik Douglas MD [address] [place] [address] [place] [address] PCP - General Internal Medicine 01/18/14 documented as of this encounter Additional Source Comments The information contained in this document represents components of the legal health record. It is not the complete legal health record.[facility]
--- OUTSIDE RECORDS SUMMARY | 2024-10-05 11:40 | XMS_ITS | Encounter Summary ---
Author Organization [facility] Address [phone] Critical [place] [address] Care Team Providers Care Mold Stamper And Repairer Name Role Phone Malik Douglas MD Primary Care Provider Encounter Details Date Type Department Care Team (Late st Contact Info) Description 09/25/2024 Transcribe Orders Virtual Department [address] [place] [address] Malik Douglas MD [address] [place] [address] [place] [address] Cough, unspecified type (Primary Dx) Social History Tobacco Use Types [...] Office Visit [facility] [address] [place] [address] [place] [address] Billy Gibson MD [address] [place] [address], [address] [place] [address] [email or web address] documented as of this encounter Results * XR CHEST PA AND LATERAL 2 VIEWS (09/25/2024 1:50 PM EST) Anatomical Region Laterality Modality Chest Computed Radiogr aphy 09/25/2024 2:40 PM EST Impressions 09/25/2024 2:41 PM EST No acute intrathoracic process is identified. Scoliosis. Narrative 09/25/2024 2:41 PM EST XR CHEST PA AND LATERAL 2 VIEWS Referring clinician's provided indication for this examination in [facility]: Cardiac screening, prior to radiation therapy or [...] osseous or soft tissue findings. Procedure Note Leonel Jackson MD - 09/25/2024 XR CHEST PA AND LATERAL 2 VIEWS Referring clinician's provided indication for this examination in [facility]:Cardiac screening, prior to radiation therapy or cardiotoxic [...] Scoliosis. Malik Douglas MD IMG XR CHEST documented in this encounter Visit Diagnoses Diagnosis Cough, unspecified type- Primary Cough, unspecified type documented in this encounter Care Teams Mold Stamper And Repairer Relationship Specialty Start Date End Date Malik Douglas MD [address] [place] [address] [place] [address] PCP - General Internal Medicine 01/18/14 documented as of this encounter Additional Source Comments The information contained in this document represents components of the legal health record. It is not the complete legal health record.[facility]
--- OUTSIDE RECORDS SUMMARY | 2024-10-05 11:40 | XMS_ITS | Encounter Summary ---
Author Organization [facility] Address [phone] [place] [address] Care Team Providers Care Net Software Developer Name Role Phone Malik Douglas MD Primary Care Provider Encounter Details Date Type Department Care Team (Latest Contact Info) Description 09/19/2024 10:57 AM EST - 09/19/2024 11:59 PM [facility] Hospital Encounter [facility] [address] [place] [address] Billy Gibson MD [address] [place] [address], [address] [place] [address] [email or web address] Discharge Disposition: Home or Self Care Social History Tobacco Use Types Packs/Day Years [...] on file documented as of this encounter Medications at Time of Discharge Medication Sig Dispensed Refills Start Date End Date acetaminophen (TYLENOL) 325 mg tablet Take 2 tablets (650 mg total) by mouth every 6 (six) hours as needed. 0 11/09/2023 albuterol 2.5 mg/0.5 mL nebulizer solution Take 0.5 mL (2.5 mg total) by nebulization every 6 (six) hours as needed for wheezing. 240 mL 11 11/26/2021 albuterol 90 mcg/actuation inhaler 06/01/2021 amLODIPine (NORVASC) 5 MG tablet Take 5 mg by mouth daily. 02/20/2021 docusate sodium (COLACE) 100 MG capsule Take 1 capsule (100 mg total) by mouth 2 (two) times a day. While taking oxycodone and until regular BM pattern is reestablished 11/09/2023 escitalopram oxalate (LEXAPRO) 10 MG tablet Take 10 mg by mouth daily. 01/10/2024 estradioL (ESTRACE) 0.01 % (0.1 mg/gram) vaginal creamIndications:Atr ophic vaginitis Place vaginally 2 (two) times a week. 42 g 1 12/08/2023 gabapentin (NEURONTIN) 300 MG capsule 01/31/2021 ibuprofen (ADVIL,MOTRIN) 200 MG tablet Take 2 tablets (400 mg total) by mouth every 6 (six) hours as needed for pain (specific location in comments). 11/09/2023 losartan (COZAAR) 100 MG tablet 03/10/2021 multivitamin per tablet Take 1 tablet by mouth daily. nebulizer and compressor Annika 1 Device by [...] Q3mo A7015 Aersol Mask Qmo 1 each 11/26/2021 nitrofurantoin (MACROBID) 100 MG capsuleIndications:D ysuria Take 1 capsule (100 mg total) by mouth 2 (two) times a day. 10 capsule 09/19/2024 polyethylene glycol (MIRALAX) 17 gram/dose powder Take 17 g by mouth 2 (two) times a day. If no BM by Tuesday. 11/09/2023 sodium chloride (HYPERSAL) 7 % Nebu Take 4 mL by nebulization 2 (two) times a day. 240 mL 6 11/26/2021 SYNTHROID 88 mcg tablet 01/04/2022 documented as of this encounter Plan of Treatment Upcoming Encounters Date Type Department Care Team (Late st Contact Info) Description 11/14/2024 8:00 AM EDT Office Visit [facility] [address] [place] [address] [place] [address] Billy Gibson MD [address] [place] [address], [address] [place] [address] [email or web address] documented as of this encounter Procedures Procedure Name Priority Date/Time Associated Diagnosis Comments URINALYSIS W/REFLEX URINE CULTURE Routine 09/19/2024 11:05 AM EST Dysuria URINE CULTURE Routine 09/19/2024 11:05 AM EST URINE SEDIMENT Routine 09/19/2024 11:05 AM EST documented in this encounter Results * (ABNORMAL) Urine Culture (09/19/2024 11:05 AM EST) Special Requests None Reflexed from [id number] 09/19/2024 3:25 PM EST [facility] Urine Culture >100,000 colony forming units per mL ESCHERICHIA COLI(A) 09/20/2024 11:23 AM EST [facility] Urine 09/19/2024 11:0 5 AM EST 09/19/2024 [...] - GENER AL ORDERABLES Performing Organization Address City/[facility] Co de Phone Number [address] [address] * (ABNORMAL) Urine sediment (09/19/2024 11:05 AM EST) WBC TOO NUMEROUS TO COUNT(A) NONE SEEN /hpf [facility] RBC NONE SEEN NONE SEEN /hpf [facility] URINE EPITHELIAL NONE SEEN NONE SEEN [facility] MUCUS NONE SEEN NONE SEEN /hpf [facility] BACTERIA 1+(A) NONE SEEN /hpf [facility] 09/19/2024 11:0 5 AM EST 09/19/2024 11:07 AM EST Billy Gibson MD URINE ORDERABLES Performing Organization Address [facility] Co de Phone Number [address] [address] * (ABNORMAL) Urinalysis w/reflex Urine Culture (09/19/2024 11:05 AM EST) COLOR Yellow Yellow [facility] CLARITY Other [facility] GLUCOSE Negative Negative [facility] BILI Negative Negative [facility] KETONES Trace(A) Negative [facility] SPECIFIC GRAVITY 1.015 1.005 - 1.030 [facility] BLOOD 1+(A) Negative [facility] PH 6.0 5.0 - 8.0 [facility] Protein-UA Negative Negative [facility] NITRITE Negative Negative [facility] Leukocyte esterase, ur 1+(A) Negative [facility] Urine (Urine) 09/19/2024 11: 05 AM EST 09/19/2024 11:07 AM EST Billy Gibson MD URINE ORDERABLES Performing Organization Address City/State/[facility] Co de Phone Number [address] [address] documented in this encounter Visit Diagnoses Diagnosis Dysuria documented in this encounter Care Teams Net Software Developer Relationship Specialty Start Date End Date Malik Douglas MD [address] [place] [address] [place] [address] PCP - General Internal Medicine 01/18/14 documented as of this encounter Additional Source Comments The information contained in this document represents components of the legal health record. It is not the complete legal health record.[facility]
--- OUTSIDE RECORDS SUMMARY | 2024-10-05 11:41 | XMS_ITS | Encounter Summary ---
Author Organization [facility] Address [phone] [place] [address] Care Team Providers Care Barrel Leveler Name Role Phone Malik Douglas MD Primary Care Provider Encounter Details Date Type Department Care Team (Late st Contact Info) Description 09/28/2021 Procedure Pass [facility], Ct Scan - [address] [address] Social History Tobacco Use Types Packs/Day Years [...] Description 11/14/2024 8:00 AM EDT Office Visit [facility] [address] [place] [address] [place] [address] Billy Gibson MD [address] [place] [address], [address] [place] [address] documented as of this encounter Visit Diagnoses Not on filedocumented in this encounter Care Teams Barrel Leveler Relationship Specialty Start Date End Date Malik Douglas MD [address] [place] [address] [place] [address] PCP - General Internal Medicine 6/6/14 documented as of this encounter Additional Source Comments The information contained in this document represents components of the legal health record. It is not the complete legal health record.[facility]
--- OUTSIDE RECORDS SUMMARY | 2024-10-05 11:41 | XMS_ITS | Encounter Summary ---
Author Organization [facility] Address [phone] Counts include 234 beds at the [facility] [place] [address] Care Team Providers Care Flue Dust Laborer Name Role Phone Malik Douglas MD Primary Care Provider Encounter Details Date Type Department Care Team (Latest Contact Info) Description 09/25/2024 1:28 PM EST - 09/25/2024 11:59 PM [facility] Hospital Encounter [facility], X-Ray - [address] [place] [address] Malik Douglas MD [address] [place] [address] [place] [address] Discharge Disposition: Home or Self Care Social [...] Office Visit [facility] [address] [place] [address] [place] [address] Billy Gibson MD [address] [place] [address], [address] [place] [address] [email or web address] documented as of this encounter Procedures Procedure Name Priority Date/Time Associated Diagnosis Comments XR CHEST PA AND LATERAL 2 VIEWS Routine 09/25/2024 1:50 PM EST Cough, unspecified type documented in this encounter Results * XR CHEST PA AND LATERAL 2 VIEWS (09/25/2024 1:50 PM EST) Anatomical Region Laterality Modality Chest Computed Radiogr aphy 09/25/2024 2:40 PM EST Impressions 09/25/2024 2:41 PM EST No acute intrathoracic process is identified. Scoliosis. Narrative 09/25/2024 2:41 PM EST XR CHEST PA AND LATERAL 2 VIEWS Referring clinician's provided indication for this examination in [facility]: Cardiac screening, prior to radiation therapy [...] osseous or soft tissue findings. Procedure Note NineLeonel MD - 09/25/2024 XR CHEST PA AND LATERAL 2 VIEWS Referring clinician's provided indication for this examination in [facility]:Cardiac screening, prior to radiation therapy or [...] this encounter Visit Diagnoses Diagnosis Cough, unspecified type documented in this encounter Care Teams Flue Dust Laborer Relationship Specialty Start Date End Date Malik Douglas MD [address] [place] [address] [place] [address] PCP - General Internal Medicine 01/18/14 documented as of this encounter Additional Source Comments The information contained in this document represents components of the legal health record. It is not the complete legal health record.[facility]
[2024-10-05 11:53] LABS: Bacteria Urine None Seen (None Seen); Hyaline Casts Urine 0-2 /LPF (0-2); RBC Urine 0-2 /HPF (0-2); Squamous Epithelial Cell Urine 0-2 /HPF (0-2); UACC Culture Trigger YES; WBC Urine 0-5 /HPF (0-5)
== END 2024-10-05 10:40 | disposition home or self-care (01) ==
LOC: HO.LNP 10:39
PROVIDERS: Visit Provider Internal Medicine
DX: N39.0 Urinary tract infection, site not specified (principal)
CPT/HCPCS: 81001; 87086; 87147

== ENCOUNTER 2025-01-11 11:18 | Outpatient (REF) | payer MEDICARE, OTHER, SELFPAY ==
[2025-01-11 11:20] LABS: MANUAL DIFF FLAG NO
[2025-01-11 11:45] LABS: Basophils Percent Auto 0.4 % (0-2); Eosinophils Absolute Auto 0.1 X10*3/uL (0.0-0.4); Eosinophils Percent Auto 1.6 % (0-4); Hematocrit 35.6 % (37.0-47.0); Hemoglobin 11.9 g/dl (12.0-16.0); Imm Gran Abs Auto 0.01 X10*3/uL (0.00-0.03); Imm Gran Pct Auto 0.2 % (0.0-0.4); Lymphocytes Absolute Auto 1.3 X10*3/uL (1.2-4.9); Mean Corpuscular HGB Conc 33.4 g/dl (31.0-35.0); Mean Corpuscular Hemoglobin 29.7 pg (27.0-33.0); Mean Corpuscular Volume 88.8 fL (80.0-98.0); Mean Platelet Volume 8.5 fL (9.4-12.3); Monocytes Absolute Auto 0.5 X10*3/uL (0.1-1.2); Monocytes Percent Auto 10.2 % (2-11); Neutrophils Absolute Auto 3.1 x10*3/uL (2.0-8.3); Neutrophils Percent Auto 62.6 % (45-73); Platelet Count 434 X10*3/uL (160-400); Red Blood Count 4.01 X10*6/uL (4.20-5.50); Red Cell Distribution Width 13.2 % (11.0-16.0)
[2025-01-11 11:48] LABS: Appearance Urine Cloudy; Color Urine Yellow; Glucose Urine UA Negative (Negative); Leukocyte Esterase Urine Trace (Negative); Nitrite Urine Negative (Negative); Specific Gravity - Urine 1.015 (1.005-1.025); UMIC TRIGGER UACC YES; Urine Blood Trace (Negative); Urine Ketones Negative (Negative); Urine Protein Negative (Neg-Trace)
[2025-01-11 11:52] LABS: Bacteria Urine None Seen (None Seen); Hyaline Casts Urine 0-2 /LPF (0-2); Squamous Epithelial Cell Urine 0-2 /HPF (0-2); WBC Urine 0-5 /HPF (0-5)
--- OUTSIDE RECORDS SUMMARY | 2025-01-11 12:13 | XMS_ITS | Clinical Summary ---
Author Organization [facility] Address [address] [place] [address] Phone Care Team Providers Care Remodeler Name Role Phone Malik Douglas MD Primary Care Provider [phone] Allergies Active Allergy Reactions Criticality Noted Date [...] with her primary care doctor and her propulsion generator repairer regarding this. Persistent cough 09/28/2021 Overview (03/17/2022): [...] her polysaccharide vaccine if her IgG levels apple turner to be low. 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 Doing well. Paitent has apt with [facility] office for discussion of surgical options. [...] hours from pain. Had multiple injections. Immunizations Immunization Administration Dates Next Due [employer] (Closed) SARS-COV-2 10/18/2020 Pfizer SARS-COV-2 10/18/2020 Pneumococcal Conjugate [...] Colorectal Cancer Screening: Sigmoidoscopy 1998 Pneumococcal Vaccine: 50+ Years (3 of 3 - PCV20 or PCV21) 12/09/2021 10/14/2021, 08/25/2010 Influenza Vaccine (Season Ended) 2025 Pneumococcal Vaccine: Peds ( 0 to 5 Years) and At-Risk Patients (6 to 49 Years) Discontinued 10/14/2021, 08/25/2010 Hepatitis B Vaccine Aged Out No longe r eligible based on patient's age to complete this topic Insurance [facility] Care Teams Remodeler Relationship Specialty Start Date End Date Malik Douglas MD [id number] [place], [place] PCP - General 08/25/20
[2025-01-11 12:33] LABS: Alanine Aminotransferase 20 U/L (0-31); Albumin Level 4.2 g/dL (3.5-5.0); Alkaline Phosphatase 48 U/L (39-117); Anion Gap 12 (12-20); Aspartate Amino Transferase 29 U/L (5-31); Bilirubin Total 0.4 mg/dL (0.0-1.0); Blood Urea Nitrogen 13 mg/dL (9-16); Calcium 9.4 mg/dL (8.4-10.2); Carbon Dioxide 27 mmol/L (22-29); Chloride 101 mmol/L (96-108); Cholesterol 243 mg/dL (<200); Estimated Glomerular Filt Rate > 60; Glucose Fasting 88 mg/dL (60-99); HDL Cholesterol 101 mg/dL (>40); LDL Cholesterol Calculated 131 mg/dL (<100); Potassium 3.9 mmol/L (3.3-5.1); Sodium 136 mmol/L (135-145); Total Protein 6.6 g/dL (6.5-8.0); Triglycerides 55 mg/dL (<150)
== END 2025-01-11 11:19 | disposition home or self-care (01) ==
LOC: HO.LNP 11:18
PROVIDERS: Visit Provider Internal Medicine
DX: I10 Essential (primary) hypertension (principal); E03.9 Hypothyroidism, unspecified; D64.9 Anemia, unspecified; D70.9 Neutropenia, unspecified
CPT/HCPCS: 80053; 80061; 81001; 84443; 85025

== ENCOUNTER 2025-01-25 11:40 | Outpatient (REF) | payer MEDICARE, OTHER, SELFPAY ==
--- OUTSIDE RECORDS SUMMARY | 2025-01-25 12:40 | XMS_ITS | Clinical Summary ---
Author Organization [facility] Address [address] [place] [address] Phone Care Team Providers Care Communications Department Chairperson Name Role Phone Malik Douglas MD Primary [...] with her primary care doctor and her mine car mechanic regarding this. 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 Doing well. Paitent has apt with [facility] office for discussion [...] injections. Immunizations Immunization Administration Dates Next Due [employer] SARS-COV-2 10/18/2020 Pfizer SARS-COV-2 10/18/2020 Pneumococcal Conjugate [...] patient's age to complete this topic Insurance [facility] Care Teams Communications Department Chairperson Relationship Specialty Start Date End Date Malik Douglas MD [id number] [place], [place] PCP - General 08/25/20
[2025-01-25 12:52] LABS: Anion Gap 10 (12-20); Blood Urea Nitrogen 15 mg/dL (9-16); Carbon Dioxide 28 mmol/L (22-29); Chloride 95 mmol/L (96-108); Estimated Glomerular Filt Rate > 60; Potassium 4.5 mmol/L (3.3-5.1); Sodium 128 mmol/L (135-145)
[2025-01-25 14:14] LABS: Creatinine Urine 16.99 mg/dL; Total Protein Urine Random < 7 mg/dL (<12)
== END 2025-01-25 11:41 | disposition home or self-care (01) ==
LOC: HO.LAB 11:40
PROVIDERS: PCP Internal Medicine; Visit Provider Internal Medicine Nephrology
DX: E87.1 Hypo-osmolality and hyponatremia (principal); I10 Essential (primary) hypertension
CPT/HCPCS: 36415; 80051; 82565; 82570; 84156; 84520

== ENCOUNTER 2025-01-30 11:27 | Outpatient (AMB) | payer MEDICARE, OTHER, SELFPAY ==
--- NOTE | 2025-01-30 11:48 | HO.NEPHOV ---
Vital Signs 01/30/25 11:49 Height 5 ft 3.5 in Weight 129 lb BMI 22.5 BP 120/70 Blood Pressure Location Lt brachial Position Sitting Pulse 61 Pulse Source Pulse Oximeter Pulse Oximetry (%) 96 Oxygen Delivery Method Room Air Intake Visit Reasons: Hypertension-Conf Human Resources Communications Manager Required: No Accompanied by: Self / Same As Patient Allergies levofloxacin Allergy (Intermediate, Verified 01/30/25 11:49) Rash lisinopril Allergy (Intermediate, Verified 01/30/25 11:49) cough HPI Comments Details: Deborah in follow-up of her hypertension and hyponatremia. Her blood pressure is well controlled. Her serum sodium has been stable. She does not have any orthostatic symptoms, nausea, vomiting, diarrhea, edema, chest pain, shortness of breath, paroxysmal nocturnal dyspnea or orthopnea. She takes nonsteroidal anti-inflammatories as needed basis. She does not drink excessive free water. Otherwise she did not have any new other complaints at the time of this office visit [facility] Medical History (System 12/18/24 @ 12:05 by Marilyn Finn) Hypothyroidism Sciatica Hypertension Kidney stones Osteoporosis Neutropenia Insomnia Anemia Tubular adenoma of colon Surgical History Hx of endoscopy Hx of colonoscopy History of right hip replacement Family History Father Cancer Mother Cancer Social History Household Members: Spouse Housing: House Alcohol intake: current Alcohol intake frequency: a few times a month Alcohol type: wine Patient Tobacco Use Status: Never used Tobacco e-Cigarette/Vaping Use: Never Used service: No Current occupational status: employed Current occupation: Realtor Review of Systems Const All systems reviewed & are unremarkable except as noted in HPI and below Physical Exam Vital Signs: Last Vital Signs Pulse 61 01/30/25 11:49 BP 152/62 H 01/30/25 11:49 Pulse Ox 96 01/30/25 11:49 Oxygen Delivery Method Room Air 01/30/25 11:49 BMI result Body Mass Index 22.5 Const General: comfortable and no acute distress Orientation/consciousness: patient oriented x3 HEENT Head: Yes normocephalic Mouth: Normal oral and palatal mucosa present Eyes EOM: EOMs intact bilaterally Neck Neck: Yes supple Resp Auscultation: clear to auscultation bilaterally Cardio Jugular venous distension: no JVD Rate: regular rate GI Palpation (GI): Soft to palpation Auscultation: normal bowel sounds General: Yes no CVA tenderness Back/Spine/Pelvis Back: no CVA tenderness Skin General skin exam: no rashes or lesions noted Neuro General: patient oriented x3 and moves all extremities Extrem General: Yes no pedal edema Results Reviewed Nephrology Results: Sodium, (135-145) 128 mmol/L L 01/25/25 Potassium, (3.3-5.1) 4.5 mmol/L 01/25/25 Chloride, (96-108) 95 mmol/L L 01/25/25 Carbon Dioxide, (22-29) 28 mmol/L 01/25/25 BUN, (9-16) 15 mg/dL 01/25/25 Creatinine, (0.5-1.4) 0.51 mg/dL 01/25/25 Calcium, (8.4-10.2) 9.4 mg/dL 01/11/25 Urine Protein, (Neg-Trace) Negative mg/dL 01/11/25 Urine Creatinine 16.99 mg/dL 01/25/25 Protein/Creatinin Ratio TNP 01/25/25 Assessment & Plan Assessment & Plan (1) Hypertension: Code(s): I10 - Essential (primary) hypertension Category: Medical Qualifiers: Hypertension type: primary hypertension Qualified Code(s): I10 - Essential (primary) hypertension (2) Hyponatremia: Code(s): E87.1 - Hypo-osmolality and hyponatremia Category: Medical Plan Deborah has longstanding hypertension. Her blood pressure is controlled at goal on losartan and amlodipine. She does not take excessive sodium in the diet. She does not drink excessive free water either. Her renal functions are normal. Her serum sodium is stable. She does not have any weakness or mentation changes. She likely has mild excessive ADH production. She was encouraged not to take excessive nonsteroidal anti-inflammatories given she is on ARB. Her volume status is optimal. Her blood chemistries are acceptable. I had not make any medication changes today. Answered all questions. Orders: Orders Creatinine 6 Months E87.1 - Hypo-osmolality and hyponatremia, I10 - Essential (primary) hypertension Creatinine 3 Months E87.1 - Hypo-osmolality and hyponatremia, I10 - Essential (primary) hypertension Electrolytes 3 Months E87.1 - Hypo-osmolality and hyponatremia, I10 - Essential (primary) hypertension Electrolytes 6 Months E87.1 - Hypo-osmolality and hyponatremia, I10 - Essential (primary) hypertension Blood Urea Nitrogen 6 Months E87.1 - Hypo-osmolality and hyponatremia, I10 - Essential (primary) hypertension Blood Urea Nitrogen 3 Months E87.1 - Hypo-osmolality and hyponatremia, I10 - Essential (primary) hypertension Coding Level of Care Code Est Pt Level 4 (46146) Diagnoses Primary hypertension I10 Hypertension type: primary hypertension Hyponatremia E87.1
[2025-01-30 11:49] VITALS: BP 120/70; PULSE 61; O2SAT 96; BMI 22.5
--- OUTSIDE RECORDS SUMMARY | 2025-01-30 13:21 | XMS_ITS | Clinical Summary ---
Author Organization [facility] Address [address] [place] [address] Phone Care Team Providers Care Site Auditor Name Role Phone Malik Douglas MD Primary [...] with her primary care doctor and her furrier designer regarding this. Persistent cough 09/28/2021 Overview (03/17/2022): [...] her polysaccharide vaccine if her IgG levels income tax return preparer to be low. 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 Doing well. Paitent has apt with [facility] office for discussion of surgical options. [...] injections. Immunizations Immunization Administration Dates Next Due [employer] SARS-COV-2 10/18/2020 Pfizer SARS-COV-2 10/18/2020 Pneumococcal Conjugate [...] patient's age to complete this topic Insurance [facility] Care Teams Site Auditor Relationship Specialty Start Date End Date Malik Douglas MD [id number] [place], [place] PCP - General 08/25/20
== END 2025-01-30 12:05 | disposition home or self-care (01) ==
LOC: HO.HKA 11:27
PROVIDERS: PCP Internal Medicine; Visit Provider Internal Medicine Nephrology
DX: I10 Essential (primary) hypertension (principal); E87.1 Hypo-osmolality and hyponatremia
CPT/HCPCS: 99214

== ENCOUNTER → 2025-01-30 11:27 | Outpatient (BNVA) | payer MEDICARE, OTHER, SELFPAY | PROVIDERS: PCP Internal Medicine; Visit Provider Internal Medicine Nephrology | DX: I10 Essential (primary) hypertension (principal); E87.1 Hypo-osmolality and hyponatremia | CPT/HCPCS: 99212 ==

== ENCOUNTER 2025-04-24 14:12 | Outpatient (REF) | payer MEDICARE, OTHER, SELFPAY ==
--- OUTSIDE RECORDS SUMMARY | 2024-09-27 05:23 | XMS_ITS ---
Author Organization Malik Douglas MD Address [address] [place] [phone] Care Team Providers Care Data Communications Software Consultant Name Role Phone Malik Douglas Primary Care Provider Medications Medication SIG (Take, Route, Fr equency, Duration) Notes Start Date End Date Status Synthroid 88 MCG TAKE 1 TABLET ONCE D AILY INTHE MORNING ON AN EMPTY STOMACH Orally Once a day for 90 days Active Encounters Encounter Location Date Provider Diagnosis Malik Douglas MD [address] [place] [phone] 09/27/2024 Malik Douglas Acquired hypothyroidism E03.9 Assessments [...] Next Appt Details Provider Name:Malik Dunne ier, 07/16/2025 10:00:00 AM, [address] [place] [address], [address], [place], [place], [phone], Provider Name:Malik Dunne ier, 01/14/2026 07:00:00 AM, [address] [place] [address], Suite [facility], [place], [place], [phone], Provider Name:Malik Dunne ier, 01/21/2026 10:30:00 AM, [address] [place] [address], Suite [facility], [place], [place], [phone], Progress Notes * Deborah HARDY MDOB: (74 yo F)Acc No.[id number]:09/27/2024 Patient: Edward Deborah BROWN :1950 A ge:74 Y S ex:Female Address:[address] [place] [phone] * Refills Refill Synthroid Tablet, 88 MCG, Orally, 90, TAKE 1 TABLET ONCE DAILY INTHE MORNING ON AN EMPTY STOMACH, Once a day, 90 days, Refills=3 * true * Date: Generated for Germania lan/Annalise/Noemiitting on: 0 04/24/2025 05:29 PM EDT
--- OUTSIDE RECORDS SUMMARY | 2024-10-05 04:30 | XMS_ITS ---
Author Organization Malik Douglas MD Address [address] [place], [place] [phone] Care Team Providers Care Mail Superintendent Name Role Phone Malik Douglas Primary Care Provider Results Component Value Reference Range Notes UA ClnCatch+Micro w/rflx Cul t Reviewed date:10/05/2024 04:41:17 PM Interpretation: Performing Lab:[facility], [address] [place] [phone] Notes/Report: Urine, Clean Catch Color Urine Yellow Appearance Urine Clear PH 7.5 5.0-9.0 Glucose Urine UA Negative Negative mg/dL Urine Blood Negative Negative Specific Farley - Urine 1.015 1.005-1.025 Urine Protein Negative [...] Date Provider Diagnosis Malik Douglas MD [address] [place] [address] [place] [phone] 10/05/2024 Malik Douglas Urinary tract infection without hematuria, site unspecified N39.0 Assessments Encounter Date Diagnosis (ICD Code) Assessment Notes Treatment Notes Treatment Clinical Notes Section Notes 10/05/2024 Urinary tract infection without hematuria, site unspecified (ICD-10 - N39.0) Plan Of Treatment Next Appt Details Provider Name:Malik Dunne ier, 07/16/2025 10:00:00 AM, [address] [place] [address], [address], [phone], Provider Name:Malik Dunne ier, 01/14/2026 07:00:00 AM, [address] [place] [address], [address], [phone], Provider Name:Malik Dunne ier, 01/21/2026 10:30:00 AM, [address] [place] [address], [address], [phone], Progress Notes * Deborah HARDY MDOB: (75 yo F)Acc No.[id number]:10/05/2024 Progress Note Patient: Edward Deborah BROWN Provider: Kelli Douglas MD :1950 A ge:74 Y S ex:Female Date:10/05/2024 Address:[address] [place] [address] [place] [phone] Subjective: * Chief Complaints: * 1 . [...] MD Date: 0 10/05/2024 Generated for Germania lan/Annalise/Marcelo on: 0 04/24/2025 05:30 PM EDT
--- OUTSIDE RECORDS SUMMARY | 2024-10-05 05:00 | XMS_ITS ---
Author Organization Malik Douglas MD Address [address] [place] [phone] Care Team Providers Care Photolith Operator Name Role Phone Malik Douglas Primary Care Provider [phone] REASON FOR VISIT RF Gabapentin 100mg Medications Medication SIG (Take, Route, Fr equency, Duration) Notes Start Date End Date Status Gabapentin 100 MG take 1 capsule daily Orally Once a day for 90 days Active Encounters Encounter Location Date Provider Diagnosis Malik Douglas MD [address] [place], [place] [phone] 10/05/2024 Malik Douglas Loss of balance R26.89 [...] Provider Name:Malik Dunne ier, 07/16/2025 10:00:00 AM, [address], [address], [place], [place], [phone], Provider Name:Malik Dunne ier, 01/14/2026 07:00:00 AM, [address] [facility] [address] [facility] [address], [address], [place], [place], [phone], Provider Name:Malik Dunne ier, 01/21/2026 10:30:00 AM, [address], [address], [place], [place], [phone], Progress Notes * Deborah HARDY MDOB: (74 yo F)Acc No.[id number]:10/05/2024 Patient: Edward Deborah BROWN :1950 A ge:74 Y S ex:Female Address:[address] [place] [address], [place] [phone] * Refills Refill Gabapentin Capsule, 100 MG, Orally, 90, take 1 capsule daily, Once a day, 90 days, Refills=2 * true * Date: Generated for Germania lan/Annalise/Noemiitting on: 0 04/24/2025 05:30 PM EDT
--- OUTSIDE RECORDS SUMMARY | 2025-01-11 04:00 | XMS_ITS ---
Author Organization Malik Douglas MD Address [address] [place], [place] [address] Care Team Providers Care Cotton Washer Name Role Phone Malik Douglas Primary Care Provider Results Component Value Reference Range Notes Complete Blood Count Auto Di ff Reviewed date:01/13/2025 11:53:34 AM Interpretation: Performing Lab:[facility], [address] [place] [phone] Notes/Report: White Blood Count 5.0 4.8-10.8 X10*3/uL [...] NRBC Abs Auto 0.000 0.0-0.012 X10*3/uL Comprehensive [place]. Panel Fa st Reviewed date:01/13/2025 11:52:55 AM Interpretation: Performing Lab:[facility], [address] [place] [phone] Notes/Report: Sodium 136 135-145 mmol/L Potassium 3.9 [...] Panel Reviewed date:01/11/2025 04:14:59 PM Interpretation: Performing Lab:[facility], [address] [place] [phone] Notes/Report: Triglycerides 55 <150 mg/dL Desirable Triglyceride: [...] T4 Reviewed date:01/11/2025 01:48:44 PM Interpretation: Performing Lab:[facility], [address] [place] [phone] Notes/Report: TSH reflex Free T4 1.30 0.32-4.0 uIU/mL UA ClnCatch+Micro w/rflx Cul t Reviewed date:01/13/2025 11:55:18 AM Interpretation: Performing Lab:[address] [phone] Notes/Report: Urine, Clean Catch Color Urine Yellow Appearance Urine Cloudy PH 7.0 5.0-9.0 Glucose Urine UA Negative Negative mg/dL Urine Blood Trace Negative Specific [place] - Urine 1.015 1.005-1.025 Urine Protein Negative [...] Location Date Provider Diagnosis Malik Douglas MD [address] [place] [address] [place] [phone] 01/11/2025 Malik Douglas Essential hypertensi on I10 [...] Provider Name:Malik Dunne ier, 07/16/2025 10:00:00 AM, [address] [place] [address], [address] [place] [address], [phone], Provider Name:Malik Dunne ier, 01/14/2026 07:00:00 AM, [address] [place] [address], [place] [address], [place], [place], [phone], Provider Name:Malik Dunne ier, 01/21/2026 10:30:00 AM, [address] [place] [address], [address], [phone], Progress Notes * Deborah HARDY MDOB: (75 yo F)Acc No.[id number]:01/11/2025 Progress Note Patient: Edward Deborah BROWN Juan Pablo Provider: Kelli Douglas MD :1950 A ge:74 Y S ex:Female Date:01/11/2025 Address:[address] [place], [place] [id number] Subjective: * Chief Complaints: * 1 . [...] - 01/11/2025 08:00 AM) L AB: Comprehensive [place]. Panel Fast (Collection Date & Time - [...] - 01/11/2025 08:00 AM) L AB: Comprehensive [place]. Panel Fast (Collection Date & Time - [...] - 01/11/2025 08:00 AM) L AB: Comprehensive [place]. Panel Fast (Collection Date & Time - [...] MD Date: 0 01/11/2025 Generated for Germania lan/Annalise/Marcelo on: 0 04/24/2025 05:30 PM EDT
--- OUTSIDE RECORDS SUMMARY | 2025-01-14 06:30 | XMS_ITS ---
Author Organization Malik Douglas MD Address [address] [place], [place] [phone] Care Team Providers Care French Polisher Name Role Phone Malik Douglas Primary Care Provider [phone] Allergies Allergen (clinical drug ingredient) Drug/Non Drug [...] Location Date Provider Diagnosis Malik Douglas MD [address] [place] [address] [address] [place], [place] [phone] 01/14/2025 Malik Douglas Essential hypertensi on I10 [...] Up: 6 Months, Reason: Provider Name:Malik duron, 07/16/2025 10:00:00 AM, [address] [place] [address], [address], [phone], Provider Name:Malik duron, 01/14/2026 07:00:00 AM, [address] [place] [address], [address], [phone], Provider Name:Malik duron, 01/21/2026 10:30:00 AM, [address] [place] [address], [address], [phone], Progress Notes * Deborah HARDY: (74 yo F)Acc No.[id number]:01/14/2025 Patient: Deborah GAYTAN Provider: Kelli Douglas MD :1950 A ge:74 Y S ex:Female Date:01/14/2025 Address:[address] [place] [address], [place], [id number] Subjective: * Chief Complaints: * R eview [...] T obacco Use: T obacco Use/Smoking P atient is a n onsmoker, A dditional Findings: [...] Urine Blood Trace A Negative - Specific [place] - Urine 1.015 1.005-1.025 - Urine Protein [...] Auto 0.000 0.0-0.012 - X10*3/uL L ab:Comprehensive [place]. Panel Fast (Order Date - 01/11/2025) (Collection [...] masses palpable. RECTAL EXAM: d one by paint roller assembler. FEMALE GENITOURINARY: d one by paint roller assembler. EXTREMITIES: n o clubbing, cyanosis, or edema. [...] MD Date: 0 01/14/2025 Generated for Germania lan/Annalise/Marcelo on: 0 04/24/2025 05:29 PM EDT History and Physical Notes * HPI (History [...] Score: 0 Interpretation and Intervention Depression Leora terra Findings: Negative Follow-Up for Depression: : review [...] mass, no lump RECTAL EXAM: done by paint roller assembler FEMALE GENITOURINARY: done by paint roller assembler ORAL CAVITY: mucosa moist
[2025-04-24 15:39] LABS: Anion Gap 11 (12-20); Blood Urea Nitrogen 18 mg/dL (9-16); Carbon Dioxide 29 mmol/L (22-29); Chloride 96 mmol/L (96-108); Estimated Glomerular Filt Rate > 60; Potassium 5.0 mmol/L (3.3-5.1); Sodium 131 mmol/L (135-145)
--- OUTSIDE RECORDS SUMMARY | 2025-04-24 17:29 | XMS_ITS | Encounter Summary ---
Author Organization [facility] Address [address] [place] [id number] Phone Care Team Providers Care Warranty Administrator Name Role Phone Malik Douglas MD Primary Care Provider Encounter Details Date Type Department Care Team (Late st Contact Info) Description 11/08/2023 Procedure Pass OR Admitting Dept - Virtual Department [address] [place] [address] Social History Tobacco Use Types Packs/Day Years [...] or tries to control you? No 11/08/2023 Comments No Sex and Gender Information Value Date Recorded Sex Assigned at Not on file Legal Sex Female 6:46 PM EST Gender Identity Not on file Sexual Orientation Not on file documented as of this encounter Functional Status * Calculated C-SSRS Risk Score (Lifetime/Recent) Answer Date of Assessment Author No Risk Indicated 11/08/2023 10:43 AM Anneliese Mccoy RN * Long Suicide Severity Rating Scale (Screener/Recent Self-Report) Question Answer Date of Assessment Author 1. Wish to be (Past 1 Month) No 024 10:43 AM Anneliese Mccoy RN 2. Non-Specific Active Suici sarbjit Thoughts (Past 1 Month) No 11/08/2023 10:43 AM Rajesh Mccoy RN 6. Suicidal Behavior (Lifetime) No 4 10:43 AM Anneliese Mccoy RN documented as of this encounter Plan of Treatment Not on file documented as of this encounter Visit Diagnoses Not on filedocumented in this encounter Care Teams Warranty Administrator Relationship Specialty Start Date End Date Malik Douglas MD [address] [place] [address] [place] [address] PCP - General Internal Medicine 01/18/14 documented as of this encounter Additional Source Comments The information contained in this document represents components of the legal health record. It is not the complete legal health record.[facility]
--- OUTSIDE RECORDS SUMMARY | 2025-04-24 17:29 | XMS_ITS | Patient Health Record ---
Author Organization Malik Douglas MD Address [address] [place], [place] [address] Care Team Providers Care Vp Delivery Name Role Phone Malik Douglas Primary Care Provider Allergies Allergen (clinical drug ingredient) Drug/Non Drug Allergy documented on EMR Reaction Allergy Type Onset Date Status Pneumococcal Vac Polyvalent swelling and redness Drug Allergy Active lisinopril Lisinopril cough Drug Allergy Activ e levaquin (uncoded) hives rash Allergy Active Results Component Value Reference Range Notes Sodium Reviewed date:04/26/2024 06:46:59 PM Interpretation: Performing Lab:[address] [phone] Notes/Report: Sodium 133 135-145 mmol/L UA ClnCatch+Micro w/rflx Cul t Reviewed date:10/05/2024 04:41:17 PM Interpretation: Performing Lab:[facility], [address] [place] [phone] Notes/Report: Urine, Clean Catch Color Urine Yellow Appearance Urine Clear PH 7.5 5.0-9.0 Glucose Urine UA Negative Negative mg/dL Urine Blood Negative Negative Specific [place] - Urine 1.015 1.005-1.025 Urine Protein Negative Neg-Trace mg/dL Urine Ketones Negative Negative mg/dL Nitrite Urine Negative Negative Leukocyte Esterase Urine Small (1+) Negative RBC Urine 0-2 0-2 /HPF WBC Urine 0-5 0-5 /HPF Squamous Epithelial Cell Urine 0-2 0-2 /HPF Bacteria Urine None Seen None Seen Hyaline Casts Urine 0-2 0-2 /LPF Complete Blood Count Auto Di ff Reviewed date:01/13/2025 11:53:34 AM Interpretation: Performing Lab:[facility], [address] [place] [phone] Notes/Report: White Blood Count 5.0 4.8-10.8 X10*3/uL [...] 0.0-0.2 /100WBC Neutrophils Absolute Auto 3.1 2.0-8.3 x10*3/uL Imm Gran Abs Auto 0.01 0.00-0.03 X10*3/uL Lymphocytes Absolute Auto 1.3 1.2-4.9 X10*3/uL Monocytes Absolute Auto 0.5 0.1-1.2 X10*3/uL Eosinophils Absolute Auto 0.1 0.0-0.4 X10*3/uL Basophils Absolute Auto 0.0 0.0-0.2 X10*3/uL NRBC Abs Auto 0.000 0.0-0.012 X10*3/uL Comprehensive [place]. Panel Fa st Reviewed date:01/13/2025 11:52:55 AM Interpretation: Performing Lab:[facility], [address] [place] [phone] Notes/Report: Sodium 136 135-145 mmol/L Potassium 3.9 [...] Panel Reviewed date:01/11/2025 04:14:59 PM Interpretation: Performing Lab:[facility], [address] [place] [phone] Notes/Report: Triglycerides 55 <150 mg/dL Desirable Triglyceride: [...] T4 Reviewed date:01/11/2025 01:48:44 PM Interpretation: Performing Lab:[facility], [address] [place] [phone] Notes/Report: TSH reflex Free T4 1.30 0.32-4.0 uIU/mL UA ClnCatch+Micro w/rflx Cul t Reviewed date:01/13/2025 11:55:18 AM Interpretation: Performing Lab:[facility], [address] [place] [phone] Notes/Report: Urine, Clean Catch Color Urine Yellow Appearance Urine Cloudy PH 7.0 5.0-9.0 Glucose Urine UA Negative Negative mg/dL Urine Blood Trace Negative Specific [place] - Urine 1.015 1.005-1.025 Urine Protein Negative Neg-Trace mg/dL Urine Ketones Negative Negative mg/dL Nitrite Urine Negative Negative Leukocyte Esterase Urine Trace Negative RBC Urine 3-5 0-2 /HPF WBC Urine 0-5 0-5 /HPF Squamous Epithelial Cell Urine 0-2 0-2 /HPF Bacteria Urine None Seen None Seen Hyaline Casts Urine 0-2 0-2 /LPF XR chest 2V Reviewed date:08/02/2024 12:42:49 PM Interpretation: Performing Lab: Notes/Report: [address] [address] XRay Report Signed Patient: Deborah Moreno MR#: [id number] : 1950 Acct:[id number] Age/Sex: 74 / F ADM Date: 05/29/24 Loc: [facility] Attending Dr: Alfonso Whelan DO Ordering Physician: Alfonso Whelan DO Date of Service: 05/29/24 Procedure(s): XR chest 2V Accession Number(s): [id number] cc: Malik Douglas MD; Alfonso Whelan DO EXAMINATION: XR CHEST 2 VIEWS CLINICAL INFORMATION: Pneumonia. COMPARISON: No prior images available at this time TECHNIQUE: 2 views of the chest were obtained. FINDINGS: The lungs are well-inflated. There is no gross pneumothorax. Cardiomediastinal silhouette within normal limits in size. Trace bilateral pleural effusions. Moderate multilevel degenerative changes in the thoracic spine. Moderate hazy opacities along the medial right lower lung. XR/XR chest 2V IMPRESSION: Moderate hazy opacities along the medial right lower lung. Trace bilateral pleural effusions. This study was presented today to July 31, 2024 for interpretation. Stat results provided at this time as requested by referring provider. Electronically signed by: Sunshine Masters MD 07/31/2024 09:38 AM EST Dictated By: Sunshine Masters MD Signed By: <Electronically signed by Sunshine Masters MD in OV> 07/31/24 0938 DD/ 1548 TD/TT: 05/29/24 1555 Special Needs Bus Driver: [place] [address] XRay Report Signed Patient: Deborah Moreno MR#: [id number] : 1950 Acct:[id number] Age/Sex: 74 / F ADM Date: 05/29/24 Loc: [facility] Attending Dr: Alfonso Whelan DO Ordering Physician: Alfonso Whelan DO Date of Service: 05/29/24 Procedure(s): XR chest 2V Accession Number(s): [id number] cc: Malik Douglas MD; Alfonso Whelan DO EXAMINATION: XR CHEST 2 VIEWS CLINICAL INFORMATION: Pneumonia. COMPARISON: No prior images avai lable at this time TECHNIQUE: 2 views of the chest were obtained. FINDINGS: The lungs are well-inflated. There is no gross pneumothorax. Cardiomediastinal silhouette within normal limits in size. Trace bilateral pleu ral effusions. Moderate multilevel degenerative changes in the thoracic spine. Moderate hazy opacit ies along the medial right lower lung. X R/XR chest 2V IMPRESSION: Moderate hazy opacit ies along the medial right lower lung. Trace bilateral pleu ral effusions. This study was prese nted today to July 31, 2024 for interpretation. Stat results provide d at this time as requested by referring provider. Electronically taya d by: Sunshine Masters MD 07/31/2024 09:38 AM [facility] Dictated By: Sunshine Masters MD Signed By: <Electronically signed by Sunshine Masters MD in OV> 07/31/24 0938 DD/ 1548 TD/TT: 05/29/24 1555 Special Needs Bus Driver: Electrolytes Reviewed date:07/19/2024 03:11:58 PM Interpretation: Performing Lab:[facility], [address] [place] [phone] Notes/Report: Sodium 131 135-145 mmol/L Potassium 4.0 3.3-5.1 mmol/L Chloride 98 96-108 mmol/L Carbon Dioxide 26 22-29 mmol/L Anion Gap 11 12-20 Blood Urea Nitrogen Reviewed date:07/19/2024 03:12:17 PM Interpretation: Performing Lab:[facility], [address] [place] [phone] Notes/Report: Blood Urea Nitrogen 14 9-16 mg/dL Creatinine Reviewed date:07/19/2024 03:12:07 PM Interpretation: Performing Lab:[facility], [address] [place] [phone] Notes/Report: Creatinine 0.61 0.5-1.4 mg/dL Estimated Glomerular Filt Rate > 60 Chronic Kidney Disease: Estimated GFR < 60 mL/min/1.73m2 Severe Kidney Disease: Estimated GFR < 15 mL/min/1.73m2 Urine Culture Reviewed date:10/07/2024 09:34:18 AM Interpretation: Performing Lab:[facility], [address] [place] [phone] Notes/Report: O:STRAGA Strep agalactiae (Grp B) Urine Culture Quant Urine Culture < 10,000 cfu/mL Urine Culture Susc N/A Urine Culture Susceptibility not routinely performed on this isolate. Mark Aguirre Reviewed date:01/11/2025 12:54:10 PM Interpretation: Performing Lab:[facility], [address] [place] [phone] Notes/Report: Hold Gold See Note Specimen held untested for 24 hours; Call to request Chemistry testing. Electrolytes Reviewed date:01/25/2025 12:54:45 PM Interpretation: Performing Lab:[facility], [address] [place] [phone] Notes/Report: Sodium 128 135-145 mmol/L Potassium 4.5 3.3-5.1 mmol/L Chloride 95 96-108 mmol/L Carbon Dioxide 28 22-29 mmol/L Anion Gap 10 12-20 Blood Urea Nitrogen Reviewed date:01/25/2025 12:57:13 PM Interpretation: Performing Lab:[facility], [address] [place] [phone] Notes/Report: Blood Urea Nitrogen 15 9-16 mg/dL Creatinine Reviewed date:01/25/2025 12:55:04 PM Interpretation: Performing Lab:[facility], [address] [place] [phone] Notes/Report: Creatinine 0.51 0.5-1.4 mg/dL Estimated Glomerular Filt Rate > 60 Chronic Kidney Disease: Estimated GFR < 60 mL/min/1.73m2 Severe Kidney Disease: Estimated GFR < 15 mL/min/1.73m2 Protein Creatinine Ratio, Ur Reviewed date:01/27/2025 07:37:46 PM Interpretation: Performing Lab:[facility], [address] [place] [phone] Notes/Report: Creatinine Urine 16.99 Total Protein Urine Random < 7 <12 mg/dL Protein/Creatinine Ratio, Ur TNP <0.2 Unable to calculate urine protein creatinine ratio due to low creatinine or protein result. Electrolytes (Not yet review ed by provider) Interpretation: Performing Lab:[facility], [address] [place] [phone] Notes/Report: Sodium 131 135-145 mmol/L Potassium 5.0 3.3-5.1 mmol/L Chloride 96 96-108 mmol/L Carbon Dioxide 29 22-29 mmol/L Anion Gap 11 12-20 Blood Urea Nitrogen (Not yet reviewed by provider) Interpretation: Performing Lab:[facility], [address] [place] [phone] Notes/Report: Blood Urea Nitrogen 18 9-16 mg/dL Creatinine (Not yet reviewe d by provider) Interpretation: Performing Lab:[facility], [address] [place] [address], [place] [address] Notes/Report: Creatinine 0.59 0.5-1.4 mg/dL Estimated Glomerular Filt Rate > 60 Chronic Kidney Disease: Estimated GFR < 60 mL/min/1.73m2 Severe Kidney Disease: Estimated GFR < 15 mL/min/1.73m2 Reason For Referral No Information Medications Medication SIG (Take, Route, Frequency, Duration) Notes Start Date End Date Status Losartan Potassium 100 MG 1 tablet Orall y Once a day Active Molnupiravir 200 MG 4 capsules Orally ev bibiana 12 hrs for 5 day(s) 12/18/2021 Not-Taking Synthroid 88 MCG TAKE 1 TABLET ONCE DAILY INTHE MORNING ON AN EMPTY STOMACH Orally Once a day Active Escitalopram Oxalate 5 MG TAKE 1 TABLET BY MOUTH EVERY DAY FOR 30 DAYS for 90 Not-Taking amLODIPine Besylate 5 MG 1 tablet Orally Once a day Active Gabapentin 100 MG take 1 capsule daily Orally Once a day for 90 days Active Flonase 50 MCG/ACT 1 spray in each nost ril Nasally Once a day for 30 day(s) 12/12/2012 Not-Taking traMADol HCl 50 MG 1 tablet as needed Orally every 8 hours as needed for 7 days 04/05/2019 Not-Taking predniSONE 20 MG 1 tablet Orally Once a day for 5 days 06/04/2021 Not-Taking Albuterol Sulfate HFA 108 (90 Base) MCG/ACT 2 puffs as needed Inhalation every 4 hrs for 30 days Active Tolterodine Tartrate ER 4 MG 1 capsule Orally Once a day Active Paxil 10 MG 1 tablet in the morn ing Orally Once a day for 30 day(s) 03/07/2015 Not-Taking Ambien 5 MG 1 tablet at bedtime Orally Once a day for 20 Not-Taking Immunizations Vaccine Route Administration Date Status Comme nts Flu Vaccine Unknown 08/25/2012 Administered PPSV23 (Pnemovax) Unknown 08/25/2012 Administered DECLINED, FLU Unknown 07/17/2012 Administered DECLINED, FLU Unknown 05/15/2013 Administered Covid Vaccine Unknown 10/18/2020 Administered J&J SARS-COV-2 Pfizer Unknown 08/27/2021 Administered Fluarix Quadrivalent IM Intramuscular 05/10/2023 Administe red Fluarix Quadrivalent - 150 IM Intramuscular 04/26/2024 Adm inistered Flu Vaccine Unknown 07/22/2014 Refused Flu Vaccine Unknown 09/16/2015 Refused Fluarix Quadrivalent Unknown 10/08/2016 Refused Fluarix Quadrivalent Unknown 05/05/2018 Refused TDaP Unknown 04/05/2019 Refused PPSV23 (Pnemovax) Unknown 04/05/2019 Refused Prevnar 13 Unknown 04/05/2019 Refused Fluarix Quadrivalent Unknown 05/17/2019 Refused Social History Tobacco Use: Social History Observation [...] Never (0 point) Points 3 Interpretation Positive Problems Problem Type SNOMED Code ICD Code Onset Dates Problem Status W/U Status Risk Notes Problem 99574481 Anxiety (F41.9) Active confirmed Problem Obesity (072420012) Obesity, unspecified (E66.9) Active confirmed Problem 8052111 Primary insomnia (F51.01) Active confirmed Problem 983956807 Tubular adenoma of colon (D12.6) Active confirmed Problem 89262905 Essential hypertension (I10) Active confirmed Problem 116447083 Acquired hypothyroidism (E03.9) Active confirmed Problem 975867590 History of kidne y stones (Z87.442) Active confirmed Problem 277275510 Anemia, unspecified type (D64.9) Active confirmed Problem 502321275 Schatzki's ring (K22.2) Active confirmed Problem 93766292 Sciatica of left side (M54.32) Active confirmed Problem 58639094 Dysthymia (F34.1) Active confirmed Problem 597502501 Neutropenia, unspecified type (D70.9) Active confirmed Problem 191929936 Loss of balance (R26.89) Active confirmed Problem 75426369 Osteoporosis without current pathological fracture, unspecified osteoporosis type (M81.0) Active confirmed Problem 166101440 Insomnia, unspecified type (G47.00) Active confirmed Problem 945236101 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) Active confirmed Vital Signs Temperature 99.9 degrees Fahrenheit 09/17/2024 weig ht is 131 BP not taken at home Temp is 99.9 Blood pressure diastolic 64 mm Hg 01/14/2025 Height 64 in 01/14/2025 Blood pressure systolic 132 mm Hg 01/14/2025 Weight 130 lbs 01/14/2025 BMI 22.31 kg/m2 01/14/2025 Encounters Encounter Location Date Provider Diagnosis Malik Douglas MD [address] [place] [id number] 04/26/2024 Malik Douglas Hyponatremia E87.1 a nd Encounter for immunization Z23 Malik Douglas MD [address] [place] [id number] 10/05/2024 Malik Douglas Urinary tract infection without hematuria, site unspecified N39.0 Malik Douglas MD [address] [place] [id number] 01/11/2025 Malik Douglas Essential hypertensi on I10 ; Acquired hypothyroidism E03.9 ; Anemia, unspecified type D64.9 and Neutropenia, unspecified type D70.9 Malik Douglas MD [address] [place] [id number] 09/17/2024 Malik Douglas Influenza A J10.1 Malik Douglas MD [address] [place] [id number] 01/14/2025 Malik Douglas Essential hypertensi on I10 ; Anemia, unspecified type D64.9 ; Wheezing R06.2 ; Acquired hypothyroidism E03.9 ; Anxiety F41.9 and Depression screening Z13.31 Malik Douglas MD [address] [place] [id number] 05/29/2024 Malik Douglas MD [address] [place] [address] [id number] 06/11/2024 Malik Douglas MD [address] [place] [id number] 07/31/2024 Malik Graceer Pneumonia J18.9 Malik Douglas MD [address] [place] [id number] 08/27/2024 Malik Douglas MD [address] [place] [id number] 09/25/2024 Malikdelroy Gracefer Cough R05.9 Malik Douglas MD [address] [id number] 09/27/2024 Malik Graceer Acquired hypothyroidism E03.9 Malik Douglas MD [address] [place] [address] [id number] 10/05/2024 Malik Graceer Loss of balance R26. 89 Assessments Encounter Date Diagnosis (ICD Code) Assessment Notes Treatment Notes Treatment Clinical Notes Section Notes 04/26/2024 Hyponatremia (ICD-10 - E87.1) 04/26/2024 Encounter for immunization (ICD-10 - Z23) 10/05/2024 Urinary tract infection without hematuria, site unspecified (ICD-10 - N39.0) 01/11/2025 Essential hypertension (ICD-10 - I10) 09/17/2024 Influenza A (ICD-10 - J10.1) patient verbalized understanding of medicatioj and directions for use 01/14/2025 Essential hypertension (ICD-10 - I10) well controlled, will cpntinue current regiment 01/14/2025 Anemia, unspecified type (ICD-10 - D64.9) is stable for years, will cntinue to monitor 09/25/2024 Cough (ICD-10 - R05.9) 09/27/2024 Acquired hypothyroidism (ICD-10 - E03.9) 10/05/2024 Loss of balance (ICD-10 - R26.89) 01/11/2025 Acquired hypothyroidism (ICD-10 - E03.9) 01/14/2025 Wheezing (ICD-10 - R06.2) stable, will continue current regiment 07/31/2024 Pneumonia (ICD-10 - J18.9) 01/11/2025 Anemia, unspecified type (ICD-10 - D64.9) 01/14/2025 Acquired hypothyroidism (ICD-10 - E03.9) stable, will continue curent regiment 01/11/2025 Neutropenia, unspecified type (ICD-10 - D70.9) 01/14/2025 Anxiety (ICD-10 - F41.9) doing well, will continue cujrrent regiment 01/14/2025 Depression screening (ICD-10 - Z13.31) negative screen Plan Of Treatment Pending Test Test Name Order Date Electrocardiogram (EKG) 10/28/2017 Electrocardiogram (EKG) 11/10/2018 PAP SMEAR (THIN PREP) 08/22/2014 XR CHEST 2 VIEW PA & LAT 07/14/2021 XR CHEST 2 VIEW PA & LAT 07/31/2024 XR CHEST 2 VIEW PA & LAT 05/26/2021 XR CHEST 2 VIEW PA & LAT 06/01/2021 Electrolytes 04/24/2025 Blood Urea Nitrogen 04/24/2025 Creatinine 04/24/2025 XR chest 2V 07/30/2021 XR chest 2V 09/25/2024 Future Test Test Name Order Date XR CHEST 2 VIEW PA & LAT 06/18/2021 Next Appt Details Provider Name:Malik duron, 07/16/2025 10:00:00 AM, [address] [place] [address], [phone], Provider Name:Malik duron, 01/14/2026 07:00:00 AM, [address] [place] [address], [address], [phone], Provider Name:Malik tejedar, 01/21/2026 10:30:00 AM, [address] [place] [address], [phone], Insurance Providers Payer Name Payer Address Payer Phone Subscriber Number Group Number Insured Name Patient Relationship to Insured Coverage Start Date Coverage End Date MEDICARE NHIC JUAN [address] [place] [address] [id number] Deborah Moreno Self - patient is the insured [employer] [address] [place] [address] [id number] Deborah Moreno Self - patient is the insured Medical (General) History Medical History History ICD 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
--- OUTSIDE RECORDS SUMMARY | 2025-04-24 17:29 | XMS_ITS | Encounter Summary ---
Author Organization [facility] Address [address] [place] [address] Phone Care Team Providers Care Post Adoption Coordinator Name Role Phone Malik Douglas MD Primary Care Provider Encounter Details Date Type Department Care Team (Late st Contact Info) Description 07/31/2021 Ancillary Orders [facility],Outside Imaging [address] [place] [address] System, Provider Not In, [facility] [address] [address] Social History Tobacco Use Types Packs/Day Years Used Date Smoking Tobacco: Never Smokeless Tobacco: Never Alcohol Use Standard Drinks/Week Comments Yes 0 (1 standard drink = 0.6 oz pur e alcohol) socially Comments No Sex and Gender Information Value Date Recorded Sex Assigned at Not on file Legal Sex Female 6:46 PM EST Gender Identity Not on file Sexual Orientation Not on file documented as of this encounter Plan of Treatment Not on file documented as of this encounter Results * XR Chest Outside (No Interpretation) (07/30/2021 12:00 AM EST) Narrative SYSTEMGENERATED, DOCUMENTATION - 07/31/2021 8:55 AM EST This study is for PACS storage only and not for interpretation. us Provider Not In System PhD IMG OUTSIDE IMAGING W /OUT INTERPRETATION Final Result * XR Chest Outside (No Interpretation) (07/15/2021 12:00 AM EST) Narrative SYSTEMGENERATED, DOCUMENTATION - 07/31/2021 8:55 AM EST This study is for PACS storage only and not for interpretation. us Provider Not In System PhD IMG OUTSIDE IMAGING W /OUT INTERPRETATION Final Result * XR Chest Outside (No Interpretation) (06/15/2021 12:00 AM EDT) Narrative SYSTEMGENERATED, DOCUMENTATION - 07/31/2021 8:54 AM EST This study is for PACS storage only and not for interpretation. us Provider Not In System PhD IMG OUTSIDE IMAGING W /OUT INTERPRETATION Final Result * XR Chest Outside (No Interpretation) (06/02/2021 12:00 AM EDT) Narrative SYSTEMGENERATED, DOCUMENTATION - 07/31/2021 8:54 AM EST This study is for PACS storage only and not for interpretation. us Provider Not In System PhD IMG OUTSIDE IMAGING W /OUT INTERPRETATION Final Result * XR Chest Outside (No Interpretation) (05/27/2021 12:00 AM EDT) Narrative SYSTEMGENERATED, DOCUMENTATION - 07/31/2021 8:53 AM EST This study is for PACS storage only and not for interpretation. us Provider Not In System PhD IMG OUTSIDE IMAGING W /OUT INTERPRETATION Final Result documented in this encounter Visit Diagnoses Not on filedocumented in this encounter Additional Health Concerns Infection Onset Date Last Indicated Resolved Time CoV-Risk 08/16/2021 08/16/2021 08/25/2021 9:55 AM EST documented as of this encounter Care Teams Post Adoption Coordinator Relationship Specialty Start Date End Date Malik Douglas MD [address] [place] [address] Dr Leong, [place] [address] PCP - General Internal Medicine 01/18/14 documented as of this encounter Additional Source Comments The information contained in this document represents components of the legal health record. It is not the complete legal health record.[facility]
--- OUTSIDE RECORDS SUMMARY | 2025-04-24 17:29 | XMS_ITS | Encounter Summary ---
Author Organization [facility] Address [address] [place] [address] Phone Care Team Providers Care Operating Systems Programmer Name Role Phone Malik Douglas MD Primary Care Provider Reason for Referral * Consultation (Elective) - Closed Specialty Diagnoses / Procedures Referred By Contac t Referred To Contact Pulmonary Disease Malik Douglas MD [address] [place] [address] Dr BAKER [address] [place], [place] [address] [place] [address] Phone: tel: fax: [address] [address] Phone: tel: Referral ID Status Reason Start Date Expiration Date Visits Re quested Visits Authorized [id number] Closed 07/27/2021 07/27/2022 1 1 Encounter Details Date Type Department Care Team (Late st Contact Info) Description 07/27/2021 Transcribe Orders [facility] Pulmonary, Allergy and Critical Care Medicine [address] [place] [address] Malik Douglas MD [address] [place] [address] [place] [id number] Social History Tobacco Use Types Packs/Day Years [...] as of this encounter Plan of Treatment Scheduled Referrals Name Type Priority Associated Diagnoses Order Schedule Ambulatory referral to [facility] Pulmonology Outpatient Referral Routine Ordered: 07/27/2021 documented as of this encounter Visit Diagnoses Not on filedocumented in this encounter Additional Health Concerns Infection Onset Date Last Indicated Resolved Time CoV-Risk 08/16/2021 08/16/2021 08/25/2021 9:55 AM EST documented as of this encounter Care Teams Operating Systems Programmer Relationship Specialty Start Date End Date Malik Douglas MD [address] [place] [address] [place] [address] PCP - General Internal Medicine 01/18/14 documented as of this encounter Additional Source Comments The information contained in this document represents components of the legal health record. It is not the complete legal health record.[facility]
--- OUTSIDE RECORDS SUMMARY | 2025-04-24 17:30 | XMS_ITS | Clinical Summary ---
Author Organization [facility] Address [address] [place] [address] Phone Care Team Providers Care Medical Oncologist Name Role Phone Malik Douglas MD Primary Care Provider Allergies Active Allergy Reactions Criticality Noted Date Comments Codeine 08/16/2021 Erythromycin GI Upset 08/16/2021 Levofloxacin Hives Medium 05/01/2012 Lisinopril Other (See Comments),Cough 01/28/2021 Pneumococcal Vaccine Unknown 04/15/2022 Other Reaction(s): swelling and redness, had one 2022 and was fine Medications multivitamin per tablet Take 1 tablet by mouth daily. Active losartan (COZAAR) 100 MG tablet 1 Active amLODIPine (NORVASC) 5 MG tablet Take 5 mg by mouth daily. 1 Active albuterol 90 mcg/actuation inhaler 1 Active albuterol 2.5 mg/0.5 mL nebulizer solution Take 0.5 mL (2.5 mg total) by nebulization every 6 (six) hours as needed for wheezing. 240 mL 11 2 Active SYNTHROID 88 mcg tablet 2 Active acetaminophen (TYLENOL) 325 mg tablet Take 2 tablets (650 mg total) by mouth every 6 (six) hours as needed. 0 4 Active mirabegron (MYRBETRIQ) 25 mg [id number] :Urinary dribbling Take 1 tablet (25 mg total) by mouth daily. 30 tablet 2 5 Active tolterodine (DETROL LA) 4 MG 24 hr capsuleIndicati ons:OAB (overactive bladder) Take 1 capsule (4 mg total) by mouth daily. 90 capsule 5 Active nitrofurantoin (MACROBID) 100 MG capsule Take 1 capsule (100 mg total) by mouth 2 (two) times a day. 10 capsule 5 Active Active Problems Problem Noted Date Diagnosed [...] her polysaccharide vaccine if her IgG levels turn laster to be low. Persistent cough for 3 [...] with her primary care doctor and her system archive analyst regarding this. Vaginal pessary in situ 07/29/2021 04/2 10/2023 Overview (07/29/2021): #[address] 07/29/2021. Good correction of anatomic defects. She would like to try to manage at home. Instructed her removal and reinsertion prn. Assessment & Plan (07/29/2021 1:15 PM EST): F/up 4 weeks for reevaluation Encounters Date Type Department Care Team Description 01/22/2025 Telephone [facility] [address] [place] [address] Sarah Le, [employer] adolfo Perry from Last 3 Months Immunizations Immunization Administration Dates Next Due COVID-19 (Pre-06/06) [employer] Vaccine, rS-Ad26, P F 10/18/2020 COVID-19 (Pre-06/06) Pfizer Vaccine, mRNA, PF Influenza High-Dose Quadrivalent Preservative Fr ee IM 06/04/2022 Influenza Quadrivalent Preservative Free IM 04/16 Pneumococcal conjugate PCV13 10/14/2021 Pneumococcal polysaccharide PPSV23 08/25/2010 Family History Medical History Relation Comments Esophageal cancer Father Malignant tumo r of esophagus Cancer Mother bile duct cancer Hypertension Son Relation Status Comments Brother Alive Father (Age 76) Mother Sister Alive Son Social History Tobacco Use Types Packs/Day [...] Sign Reading Time Taken Comments Blood Pressure 174/80 11/14/2024 7:57 AM EDT Pulse 68 11/05/2024 4:44 PM EDT Temperature 36.8 C (98.2 F) 11/05/2024 4:44 PM EDT Respiratory Rate 16 11/05/2024 4:44 PM EDT Oxygen Saturation 100% 11/05/2024 4:44 PM EDT Inhaled Oxygen Concentration - - Weight 58.5 kg (129 lb) 11/14/2024 7:57 AM EDT Height 161.3 cm (5' 3.5 ) 11/14/2024 7:57 AM EDT Body Mass Index 22.49 11/14/2024 7:57 AM EDT Plan of Treatment Health Maintenance Due Date Last Done Comments Adult Td,Tdap Booster 1949 LIPID PANEL 1949 TSH LEVEL 1949 DEPRESSION SCREENING 1961 HEPATITIS C SCREENING 1967 ZOSTER VACCINES (1 of 2) 1999 OSTEOPOROSIS SCREENING INITIAL (ONE-TIME) 2014 RSV VACCINE (1 - 1-dose 75+ series) 2024 COVID-19 VACCINE ( season) 2024 09/03/2022, 08/27/2021, 10/18/2020, Additional history exists CREATININE LEVEL 11/06/2024 11/07/2023, , 05/01/2012 POTASSIUM LEVEL 11/06/2024 11/07/2023, 04/16, 05/01/2012 INFLUENZA VACCINE (#1) 2025 , 05/10/2023, 06/04/2022 BLOOD PRESSURE 05/16/2025 11/14/2024 SMOKING STATUS SCREENING (Once After 26 Yrs) Completed 11/14/2024 HEPATITIS A VACCINES Aged Out No long er eligible based on patient's age to complete this topic HIB VACCINES Aged Out No longer eligi ble based on patient's age to complete this topic MENINGOCOCCAL VACCINES (ACWY) Aged Out No longer eligible based on patient's age to complete this topic MENINGOCOCCAL VACCINES (B) Aged Out N o longer eligible based on patient's age to complete this topic Medical Devices Implanted Type Area Groutman Device Identifier Shelf Expiration Date Model / Serial / Lot Mesh Mesh Urinary Bladder Pin Pin Left: Toe Prosthetic Joint Prosthetic Joint Right: Hip Sling Incontinence Miduretheral Obtryx Ii Halo Transobturator - [id number] Implanted:Qty: 1 on 11/08/2023 by Billy Gibson MD at [facility] N/A: Iliac Crest [employer]Time [id number] 04/12/2026 [id number] / / [id number] Procedures Procedure Name Priority Date/Time Associated Diagnosis Comments BASIC METABOLIC PANEL Routine 11/07/2023 7:57 AM EDT Urinary frequency from Last 3 Months or Most Recently Relevant to Health Maintenance Results * (ABNORMAL) Basic metabolic panel (11/07/2023 7:57 AM EDT) SODIUM 134 133 - 146 mmol/L [facility] CHLORIDE 96 96 - 108 mmol/L [facility] POTASSIUM 4.2 3.3 - 5.1 mmol/L [facility] CO2 27 21 - 35 mmol/L [facility] BUN 13 6 - 19 mg/dL [facility] CREATININE 0.40(L) 0.5 - 1.5 mg/dL [facility] GLUCOSE 57(L) 70 - 99 mg/dL [facility] CALCIUM 9.5 8.4 - 10.3 mg/dL [facility] EGFR 104 >59 mL/min/1.7 3m2 [facility] Comment:Estimated glomerular filtration rate calculated using the CKD-EPI refit equation. ANION GAP 15 10 - 20 mmol/L [facility] Blood 11/07/2023 7:57 AM EDT 11/07/2023 9:29 AM EDT Billy Gibson MD LAB BLOOD ORDERABLES Final Resul t [facility] [address] [place] [address] from Last 3 Months or Most Recently Relevant to Health Maintenance Insurance [place] PART [place] [id number] [facility] MEDICARE SUPPLEMENT MEDICARE PART A & B FOR LIFE MEDICARE SUPPLEMENT MEDICARE PART A & B MEDICARE PART A & B MEDICARE PART A & B Member Subscriber Plan / Payer (Ef fective 2024-Present) Name:Deborah Moreno Member ID:[id number] Relation to Subscriber:Self Name:Deborah Moreno Subscriber ID:[id number] Payer ID:[id number] Group ID:Not on file Type:Medicare Address: [facility] [facility] [employer] [facility] MEDICARE SUPPLEMENT MEDICARE PART A & B FOR LIFE MEDICARE SUPPLEMENT MEDICARE PART A & B FOR LIFE MEDICARE SUPPLEMENT MEDICARE PART A & B MEDICARE PART A & B FOR LIFE MEDICARE SUPPLEMENT Advance Directives For more information, please contact: [phone] (9AM - 5PM [facility], Tuesday-Tuesday) Documents on File Type Date Recorded Patient Bobbin Presser Expl anation Healthcare Proxy 11/10/2023 11:31 AM * Full Code (Latest Code Status on File) Date Activated Date Inactivated Comments 11/08/2023 10:36 AM Question Answer Comments Code Status Confirmed With: Patient * Full Code Date Activated Date Inactivated Comments 11/08/2023 7:27 AM 11/08/2023 10:36 AM Question Answer Comments Code Status Confirmed With: Patient Care Teams Medical Oncologist Relationship Specialty Start Date End Date Malik Douglas MD [address] [place] [address] [place] [address] PCP - General Internal Medicine 01/18/14 Additional Source Comments The information contained in this document represents components of the legal health record. It is not the complete legal health record.[facility]
--- OUTSIDE RECORDS SUMMARY | 2025-04-24 17:30 | XMS_ITS | Clinical Summary ---
Author Organization [facility] Address [address] [place] [address] Phone Care Team Providers Care Project Designer Name Role Phone Malik Douglas MD Primary [...] with her primary care doctor and her revenue manager regarding this. Persistent cough 09/28/2021 Overview (03/17/2022): [...] her polysaccharide vaccine if her IgG levels returned item clerk to be low. 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 Doing well. Paitent has apt with [facility] office for discussion of surgical options. [...] injections. Immunizations Immunization Administration Dates Next Due [employer] SARS-COV-2 10/18/2020 Pfizer SARS-COV-2 10/18/2020 Pneumococcal Conjugate [...] Health Maintenance Due Date Last Done Comments Pneumococcal Vaccine: 50+ Years (3 of 3 - PCV20 or PCV21) 12/09/2021 10/14/2021, 08/25/2010 Influenza Vaccine (#1) 2025 Pneumococcal Vaccine: Peds (0 to 5 Years) and At-Risk Patients (6 to 49 Years) Discontinued 10/14/2021, 08/25/2010 Hepatitis B Vaccine Aged Out No longe r eligible based on patient's age to complete this topic Insurance [facility] Care Teams Project Designer Relationship Specialty Start Date End Date Malik Douglas MD [id number] [place], [place] PCP - General 08/25/20
--- OUTSIDE RECORDS SUMMARY | 2025-04-24 17:30 | XMS_ITS | Encounter Summary ---
Author Organization [facility] Address [address] [place] [address] [place] [phone] Phone Care Team Providers Care Stone Cleaner Name Role Phone Malik Douglas MD Primary Care Provider Encounter Details Date Type Department Care Team (Late st Contact Info) Description 09/17/2022 Procedure Pass [facility], Ct Scan - [address] [address] Social History Tobacco Use Types Packs/Day Years [...] on filedocumented in this encounter Care Teams Stone Cleaner Relationship Specialty Start Date End Date Malik Douglas MD [address] [place] [address] [place] [address] PCP - General Internal Medicine 01/18/14 documented as of this encounter Additional Source Comments The information contained in this document represents components of the legal health record. It is not the complete legal health record.[facility]
--- OUTSIDE RECORDS SUMMARY | 2025-04-24 17:31 | XMS_ITS | Encounter Summary ---
Author Organization [facility] Address [address] [place] [address] [place] [address] Phone Care Team Providers Care Front Desk Person Name Role Phone Malik Douglas MD Primary Care Provider Encounter Details Date Type Department Care Team (Late st Contact Info) Description 06/15/2022 Procedure Pass [facility], Ct Scan - [address] [address] Social History Tobacco Use Types Packs/Day Years [...] on filedocumented in this encounter Care Teams Front Desk Person Relationship Specialty Start Date End Date Malik Douglas MD [address] [place] [address] [place] [address] PCP - General Internal Medicine 01/18/14 documented as of this encounter Additional Source Comments The information contained in this document represents components of the legal health record. It is not the complete legal health record.[facility]
--- OUTSIDE RECORDS SUMMARY | 2025-04-24 17:31 | XMS_ITS | Encounter Summary ---
Author Organization [facility] Address [address] [place] [address] [place] [address] Phone Care Team Providers Care Ecosystem Ecology Professor Name Role Phone Malik Douglas MD Primary Care Provider Encounter Details Date Type Department Care Team (Late st Contact Info) Description 09/28/2021 Procedure Pass [facility], Ct Scan - [address] [address] Social History Tobacco Use Types Packs/Day Years [...] on filedocumented in this encounter Care Teams Ecosystem Ecology Professor Relationship Specialty Start Date End Date Malik Douglas MD [address] [place] [address] [place] [address] PCP - General Internal Medicine 01/18/14 documented as of this encounter Additional Source Comments The information contained in this document represents components of the legal health record. It is not the complete legal health record.[facility]
--- OUTSIDE RECORDS SUMMARY | 2025-04-24 17:31 | XMS_ITS | Encounter Summary ---
Author Organization [facility] Address [address] [place] [address] Phone Care Team Providers Care Greens Or Grounds Superintendent Name Role Phone Malik Douglas MD Primary Care Provider Encounter Details Date Type Department Care Team (Late st Contact Info) Description 07/31/2024 Transcribe Orders Virtual Department [address] [place] [address] Malik Douglas MD [address] [place] [address] [place] [address] Pneumonia due to infectious organism, unspecified laterality, [...] clinician's provided indication for this examination in [facility]:Pneumonia; pneumonia COMPARISON: XR CHEST OUTSIDE (NO INTERPRETATION) ; CT CHESTWITHOUT CONTRAST ; XR CHEST PA AND LATERAL 2 [id number] FINDINGS: Devices/Tubes/Lines: None. Lungs: There are similar [...] focalconsolidation. Malik Douglas MD IMG XR CHEST Final R esult documented in this encounter Visit Diagnoses Diagnosis Pneumonia due to infectious organism, unspecified laterality, unspecified part of lung- Primary Pneumonia due to infectious organism, unspecified laterality, unspecified part of lung documented in this encounter Care Teams Greens Or Grounds Superintendent Relationship Specialty Start Date End Date Malik Douglas MD [address] [place] [address] [place] [address] PCP - General Internal Medicine 01/18/14 documented as of this encounter Additional Source Comments The information contained in this document represents components of the legal health record. It is not the complete legal health record.[facility]
--- OUTSIDE RECORDS SUMMARY | 2025-04-24 17:31 | XMS_ITS | Encounter Summary ---
Author Organization [facility] Address [address] [place] [address] Phone Care Team Providers Care Stunt Woman Name Role Phone Malik Douglas MD Primary Care Provider Encounter Details Date Type Department Care Team (Late st Contact Info) Description 04/21/2018 Procedure Pass [facility] Admitting Dept Virtual Department [address] [place] [address] Social History Tobacco Use Types Packs/Day Years Used Date Smoking Tobacco: Never Alcohol Use Standard Drinks/Week Comments Not Asked 0 (1 standard drink = 0.6 oz pur e alcohol) Comments Unknown Sex and Gender Information Value [...] documented as of this encounter Care Teams Stunt Woman Relationship Specialty Start Date End Date Malik Douglas MD [address] [place] [address] [place] [address] PCP - General Internal Medicine 01/18/14 documented as of this encounter Additional Source Comments The information contained in this document represents components of the legal health record. It is not the complete legal health record.[facility]
--- OUTSIDE RECORDS SUMMARY | 2025-04-24 17:31 | XMS_ITS | Encounter Summary ---
Author Organization [facility] Address [address] [place] [address] Phone Care Team Providers Care Louver Mortiser Operator Name Role Phone Malik Douglas MD Primary Care Provider Encounter Details Date Type Department Care Team (Late st Contact Info) Description 09/25/2024 Transcribe Orders Virtual Department [address] [place] [address] Malik Douglas MD [address] [place] [address] [place] [address] Cough, unspecified type (Primary Dx) Social History [...] provided indication for this examination in [facility]: Cardiac screening, prior to radiation therapy or [...] provided indication for this examination in [facility]:Cardiac screening, prior to radiation therapy or cardiotoxic [...] No acute intrathoracic process is identified. Scoliosis. us Malik Douglas MD IMG XR CHEST Final R esult documented in this encounter Visit Diagnoses Diagnosis Cough, unspecified type- Primary Cough, unspecified type documented in this encounter Care Teams Louver Mortiser Operator Relationship Specialty Start Date End Date Malik Douglas MD [address] [place] [address] [place] [address] PCP - General Internal Medicine 01/18/14 documented as of this encounter Additional Source Comments The information contained in this document represents components of the legal health record. It is not the complete legal health record.[facility]
--- OUTSIDE RECORDS SUMMARY | 2025-04-24 17:31 | XMS_ITS | Encounter Summary ---
Author Organization [facility] Address [address] [place] [address] Phone Care Team Providers Care Director Digital Name Role Phone Malik Douglas MD Primary Care Provider Reason for Referral * MRI/CAT Scan - Closed Specialty Diagnoses / Procedures Referred By Contac t Referred To Contact Radiology Diagnoses Recurrent pneumonia Procedures CT Chest CT Angio Chest CT Chest Ruchi Abdul MD Phone: tel: fax: [email or web address] Referral ID Status Reason Start Date Expiration Date Visits Re quested Visits Authorized [id number] Closed 09/28/2021 09/28/2022 1 1 Encounter Details Date Type Department Care Team ([facility] st Contact Info) Description 09/28/2021 Ancillary Orders [facility] Pulmonary, Allergy [facility] Critical Care Medicine [address] [place] [address] Ruchi Abdul MD [address] [address] [email or web address] Shortness of breath; Recurrent pneumonia Social History Tobacco Use Types Packs/Day Years [...] documented as of this encounter Results * CT CHEST WITHOUT CONTRAST (10/08/2021 8:49 AM EST) Anatomical Region Laterality Modality Chest Computed Tomogra phy 10/08/2021 8:54 AM EST Impressions 10/08/2021 9:17 AM EST 1.No evidence of pneumonia or mass. 2.Mild multilevel mucous plugging and medial right middle lobe atelectasis versus scarring. 3.Probably benign sub-5 mm right lower lobe base nodule versus peripheral mucous plugging. No suspicious nodules. Follow-up CT should be based on clinical concern. 4.Indeterminate 2 cm right hepatic dome hypodense mass which could represent incidental cyst or hemangioma. Recommend limited right upper quadrant ultrasound. Findings inconclusive and a MRI the liver would be warranted. 5.Additional findings as above. N.B.: Calcification in the coronary arteries does not in itself have a high positive predictive value for near term cardiac events; however, in the appropriate clinical setting it may be an indication for further evaluation or cardiology consultation depending on the patients cardiac risk factors. Narrative 10/08/2021 9:17 AM EST COMPARISON: Chest x-ray 08/16/2021. TECHNIQUE: CT chest without IV contrast. Multiplanar reformatted images generated. Automated exposure control utilized. CT CHEST FINDINGS: Lines/tubes/devices: None. Lungs and Airways: No airway masses or bronchiectasis. Mild multilobar mucous plugging most prominent in the right middle lobe right. Chronic hyperinflation. No pulmonary masses, consolidation or suspicious nodules. Medial right middle lobe scarring versus atelectasis. Sub-5 mm posterior right lower lobe base nodule versus peripheral mucous plugging. Incidental sub-5 mm left lower lobe superior segment calcified granuloma. Pleura: The pleural spaces are clear. Heart and mediastinum: Heart is normal in size. No pericardial effusion. Mild diffuse aortic atherosclerosis and ectasia. No aortic aneurysm. Main pulmonary artery outflow trunk is normal in size. Esophagus is normal. No enlarged mediastinal or hilar lymph nodes. No thyroid nodules identified. Soft tissues: Normal. Abdomen: Limited pyu-cpbvkejx-fbfggjhk views of the upper abdomen obtained. No acute findings. Ovoid hypodense right hepatic dome mass/segment 8 measuring 2 x 1.6 cm./Hounsfield units 42. Bones: Osteopenia. Diffuse thoracic spine endplate spurring. No compression fractures. No destructive or suspicious bone lesions. Procedure Note Paul Caceres MD - 10/08/2021 COMPARISON: Chest x-ray 08/16/2021. TECHNIQUE: CT chest without IV contrast. Multiplanar reformatted imagesgenerated. Automated exposure control utilized. CT CHEST FINDINGS: Lines/tubes/devices: None. Lungs and Airways: No airway masses or bronchiectasis. Mild multilobarmucous plugging most prominent in the right middle lobe right. Chronichyperinflation. No pulmonary masses, consolidation or suspicious nodules.Medial right middle lobe scarring versus atelectasis. Sub-5 mm posteriorright lower lobe base nodule versus peripheral mucous plugging. Incidentalsub-5 mm left lower lobe superior segment calcified granuloma. Pleura: The pleural spaces are clear. Heart and mediastinum: Heart is normal in size. No pericardial effusion.Mild diffuse aortic atherosclerosis and ectasia. No aortic aneurysm. Mainpulmonary artery outflow trunk is normal in size. Esophagus is normal. Noenlarged mediastinal or hilar lymph nodes. No thyroid nodules identified. Soft tissues: Normal. Abdomen: Limited tzz-eebozwjc-tihckfjv views of the upper abdomenobtained. No acute findings. Ovoid hypodense right hepatic domemass/segment 8 measuring 2 x 1.6 cm./Hounsfield units 42. Bones: Osteopenia. Diffuse thoracic spine endplate spurring. Nocompression fractures. No destructive or suspicious bone lesions. IMPRESSION: 1.No evidence of pneumonia or mass. 2.Mild multilevel mucous plugging and medial right middle lobe atelectasisversus scarring. 3.Probably benign sub-5 mm right lower lobe base nodule versus peripheralmucous plugging. No suspicious nodules. Follow-up CT should be based onclinical concern. 4.Indeterminate 2 cm right hepatic dome hypodense mass which couldrepresent incidental cyst or hemangioma. Recommend limited right upperquadrant ultrasound. Findings inconclusive and a MRI the liver would bewarranted. 5.Additional findings as above. N.B.: Calcification in the coronary arteries does not in itself have ahigh positive predictive value for near term cardiac events; however, inthe appropriate clinical setting it may be an indication for furtherevaluation or cardiology consultation depending on the patients cardiacrisk factors. Ruchi Abdul MD IMG CT CHEST Final Result documented in this encounter Visit Diagnoses Diagnosis Shortness of breath Recurrent pneumonia Pneumonia, organism unspecified Recurrent pneumonia Pneumonia, organism unspecified documented in this encounter Care Teams Director Digital Relationship Specialty Start Date End Date Malik Douglas MD [address] [place] [address] [place] [address] PCP - General Internal Medicine 01/18/14 documented as of this encounter Additional Source Comments The information contained in this document represents components of the legal health record. It is not the complete legal health record.[facility]
== END 2025-04-24 14:13 | disposition home or self-care (01) ==
LOC: HO.LAB 14:12
PROVIDERS: PCP Internal Medicine; Visit Provider Internal Medicine Nephrology
DX: I10 Essential (primary) hypertension (principal); E87.1 Hypo-osmolality and hyponatremia
CPT/HCPCS: 36415; 80051; 82565; 84520

== ENCOUNTER 2025-07-23 12:29 | Outpatient (REF) | payer MEDICARE, OTHER, SELFPAY ==
[2025-07-23 13:34] LABS: Anion Gap 12 (12-20); Blood Urea Nitrogen 16 mg/dL (9-16); Carbon Dioxide 27 mmol/L (22-29); Chloride 98 mmol/L (96-108); Estimated Glomerular Filt Rate > 60; Potassium 4.1 mmol/L (3.3-5.1); Sodium 133 mmol/L (135-145)
== END 2025-07-23 12:30 | disposition home or self-care (01) ==
LOC: HO.LAB 12:29
PROVIDERS: PCP Internal Medicine; Visit Provider Internal Medicine Nephrology
DX: I10 Essential (primary) hypertension (principal); E87.1 Hypo-osmolality and hyponatremia
CPT/HCPCS: 36415; 80051; 82565; 84520

== ENCOUNTER 2025-07-31 10:26 | Outpatient (AMB) | payer MEDICARE, OTHER, SELFPAY ==
--- OUTSIDE RECORDS SUMMARY | 2024-08-27 04:42 | XMS_ITS ---
Author Organization Malik Douglas MD Address [address] [place] [phone] Care Team Providers Care End Packer Name Role Phone Malik Douglas Primary Care Provider REASON FOR VISIT vacation / z-nilay Medications Medication SIG (Take, Route, Fr equency, Duration) Notes Start Date End Date Status Zithromax Z-Nilay 250 MG 2 tablet on the f irst day, then 1 tablet daily for 4 days Orally Once a day for 5 day(s) 08/27/2024 Active Encounters Encounter Location Date Provider Diagnosis Malik Douglas MD [address] [place] [phone] 08/27/2024 Malik Douglas Plan Of Treatment Medication Medication Name Sig Start Date Stop Date Notes Zithromax Z-Nilay 250 MG 2 tablet on the f irst day, then 1 tablet daily for 4 days Orally Once a day for 5 day(s) 08/27/2024 Next Appt Details Provider Name:Malik Dunne ier, 01/14/2026 07:00:00 AM, [address], [address], [place], [phone], Provider Name:Malik Dunne ier, 01/21/2026 10:30:00 AM, [address], [address], [place], [phone], Progress Notes * Deborah HARDY MDOB: (74 yo F)Acc No.[id number]:08/27/2024 Patient: Edward Deborah andre :1950 A ge:74 Y S ex:Female Address:[address] [place] [id number] * Refills Start Zithromax Z-Nilay Tablet, 250 MG, Orally, 6, 2 tablet on the first day, then 1 tablet daily for 4 days, Once a day, 5 day(s), Refills=0 * true * Date: Generated for Germania lan/Annalise/Marcelo on: 10/01/2024 01:01 PM EST
--- OUTSIDE RECORDS SUMMARY | 2024-09-17 09:15 | XMS_ITS ---
Author Organization Malik Douglas MD Address [address] [place], [place] [phone] Care Team Providers Care Electricity Trader Name Role Phone Malik Douglas Primary Care Provider Allergies Allergen (clinical drug ingredient) Drug/Non Drug Allergy documented on EMR Reaction Allergy Type Onset Date Status Pneumococcal Vac Polyvalent swelling and redness Drug Allergy Active lisinopril Lisinopril cough Drug Allergy Activ e levaquin (uncoded) hives rash Allergy Active REASON FOR VISIT flu video [phone] as been on a cruise and 5 out of the 8 have FLU, c/o chills fatigue fever, sore throat productive cough congestion cannot smell or taste, runny nose x 5 days Medications Medication SIG (Take, Route, Frequency, Duration) Notes Start Date End Date Status traMADol HCl 50 MG 1 tablet as needed Orally every 8 hours as needed for 7 days 04/05/2019 Not-Taking Molnupiravir 200 MG 4 capsules Orally ev bibiana 12 hrs for 5 day(s) 12/18/2021 Not-Taking predniSONE 20 MG 1 tablet Orally Once a day for 5 days 06/04/2021 Not-Taking Escitalopram Oxalate 5 MG TAKE 1 TABLET BY MOUTH EVERY DAY FOR 30 DAYS for 90 Not-Taking Synthroid 88 MCG TAKE 1 TABLET ONCE DAILY INTHE MORNING ON AN EMPTY STOMACH Active Losartan Potassium 100 MG 1 tablet Orall y Once a day Active Paxlovid (300/100) 20 x 150 MG & 10 x 100MG 3 tablets Orally Twice a day for 5 day(s) 04/10/2024 Active Gabapentin 100 MG take 1 capsule daily Orally Once a day for 90 days Active amLODIPine Besylate 5 MG 1 tablet Orally Once a day Active Albuterol Sulfate HFA 108 (90 Base) MCG/ACT INHALE 1 PUFF BY MOUTH NEEDED EVERY 4 HOURS FOR 14 DAYS for 30 Active Paxil 10 MG 1 tablet in the morn ing Orally Once a day for 30 day(s) 03/07/2015 Not-Taking Flonase 50 MCG/ACT 1 spray in each nost ril Nasally Once a day for 30 day(s) 12/12/2012 Not-Taking Ambien 5 MG 1 tablet at bedtime Orally Once a day for 20 Not-Taking Oseltamivir Phosphate 75 MG 1 capsule Orally Twice a day for 5 day(s) 09/17/2024 Active Vital Signs Temperature 99.9 degrees Fahrenheit 09/17/19 25 Height 64 in 09/17/2024 Weight 131 lbs 09/17/2024 BMI 22.48 kg/m2 09/17/2024 weight is 131 BP not taken a t home Temp is 99.9 Encounters Encounter Location Date Provider Diagnosis Malik Douglas MD [address] [place] [address] [address] [place], [place] [phone] 09/17/2024 Malik Douglas Influenza A J10.1 Assessments Encounter Date Diagnosis (ICD Code) Assessment Notes Treatment Notes Treatment Clinical Notes Section Notes 09/17/2024 Influenza A (ICD-10 - J10.1) patient verbalized understanding of medicatioj and directions for use Plan Of Treatment Medication Medication Name Sig Start Date Stop Date Notes Oseltamivir Phosphate 75 MG 1 capsule Or ally Twice a day for 5 day(s) 09/17/2024 Treatment Notes Assessment Notes Influenza A patient verbalized u nderstanding of medicatioj and directions for use Next Appt Details Provider Name:Malik Dunne ier, 01/14/2026 07:00:00 AM, [address], [address], [place], [place], [phone], Provider Name:Malik Dunne ier, 01/21/2026 10:30:00 AM, [address], [address], [place], [place], [phone], Progress Notes * Deborah HARDY MDOB: (74 yo F)Acc No.[id number]:09/17/2024 Patient: Edward Deborah BROWN Provider: Kelli Douglas MD :1950 A ge:74 Y S ex:Female Date:09/17/2024 Address:[address] [place] [id number] Subjective: * Chief Complaints: * f ashish video [phone] as been on a cruise and 5 out of the 8 have FLUC/o chills fatigue fever, sore throat productive cough congestion cannot smell or taste, runny nose x 5 days * HPI: S ymptom(s): Telehealth L ocation of provider rendering services: 1 [address] [facility], [address], ocation of patient: a t address listed in demographics for today's visit, P atient identification confirmed using: FOSTER Mosqueda ame, T elehealth method: V ideo conference where patient is visible to the provider of care, C onsent: P atient verbally consented to treatment, Patient verbally consented to billing insurance company, Patient informed of any privacy concerns related to method of visit, T otal time spend talking with patient (minutes) 0 . patient is a 74 yo female video telehealth visit, here as emergency. 6 out of 8 have the flu. feels like she has the flu. fevers chills nose running cough. no taste and no smell. * ROS: G eneral/Constitutional: Admits C hills. A dmits F atigue. D enies F ever. E NT: Admits D ecreased sense of smell. A dmits S ore throat. R espiratory: Admits C ough. A dmits S hortness of breath at rest. A dmits S hortness of breath with exertion. A dmits S putum production. P eripheral Vascular: Patient denies r ed and blue toes. * Medical History: * Surgical History: * Hospitalization/Major Diagno stic Procedure: * Medications: T akingAlbuterol Sulfate HFA 108 (90 Base) MCG/ACT Aerosol Solution INHALE 1 PUFF BY MOUTH NEEDED EVERY 4 HOURS FOR 14 DAYS Synthroid 88 MCG Tablet TAKE 1 TABLET ONCE DAILY INTHE MORNING ON AN EMPTY STOMACH Gabapentin 100 MG Capsule take 1 capsule daily Orally Once a day amLODIPine Besylate 5 MG Tablet 1 tablet Orally Once a day Losartan Potassium 100 MG Tablet 1 tablet Orally Once a day Paxlovid (300/100) 20 x 150 MG & 10 x 100MG Tablet Therapy Pack 3 tablets Orally Twice a day Taking Albuterol Sulfate HFA 108 (90 Base) MCG/ACT Aerosol Solution INHALE 1 PUFF BY MOUTH NEEDED EVERY 4 HOURS FOR 14 DAYS Taking Synthroid 88 MCG Tablet TAKE 1 TABLET ONCE DAILY INTHE MORNING ON AN EMPTY STOMACH Taking Gabapentin 100 MG Capsule take 1 capsule daily Orally Once a day Taking amLODIPine Besylate 5 MG Tablet 1 tablet Orally Once a day Taking Losartan Potassium 100 MG Tablet 1 tablet Orally Once a day Taking Paxlovid (300/100) 20 x 150 MG & 10 x 100MG Tablet Therapy Pack 3 tablets Orally Twice a day Not-Taking/PRNEscitalopram Oxalate 5 MG Tablet TAKE 1 TABLET BY MOUTH EVERY DAY FOR 30 DAYS Molnupiravir 200 MG Capsule 4 capsules Orally every 12 hrs predniSONE 20 MG Tablet 1 tablet Orally Once a day traMADol HCl 50 MG Tablet 1 tablet as needed Orally every 8 hours as needed Ambien 5 MG Tablet 1 tablet at bedtime Orally Once a day Paxil 10 MG Tablet 1 tablet in the morning Orally Once a day Flonase 50 MCG/ACT Suspension 1 spray in each nostril Nasally Once a day Not-Taking/PRN Escitalopram Oxalate 5 MG Tablet TAKE 1 TABLET BY MOUTH EVERY DAY FOR 30 DAYS Not-Taking/PRN Molnupiravir 200 MG Capsule 4 capsules Orally every 12 hrs Not-Taking/PRN predniSONE 20 MG Tablet 1 tablet Orally Once a day Not-Taking/PRN traMADol HCl 50 MG Tablet 1 tablet as needed Orally every 8 hours as needed Not-Taking/PRN Ambien 5 MG Tablet 1 tablet at bedtime Orally Once a day Not-Taking/PRN Paxil 10 MG Tablet 1 tablet in the morning Orally Once a day Not-Taking/PRN Flonase 50 MCG/ACT Suspension 1 spray in each nostril Nasally Once a day DiscontinuedZithromax Z-Nilay 250 MG Tablet 2 tablet on the first day, then 1 tablet daily for 4 days Orally Once a day Medication List reviewed and reconciled with the patientDiscontinued Zithromax Z-Nilay 250 MG Tablet 2 tablet on the first day, then 1 tablet daily for 4 days Orally Once a day Medication List reviewed and reconciled with the patient * Allergies: l evaquin: hives rashPneumococcal Vac Polyvalent: swelling and rednessLisinopril: coughyes[Allergies Verified] Objective: * Vitals: H t: 64, Wt: 131, BMI:22.48, Temp:99.9, Wt-k.42. weight is 131 BP not taken at home Temp is 99.9. Assessment: * Assessment: 1. I nfjo-ann Noel - J10.1 (Primary) Plan: * Treatment: * Procedure Codes: * * Sign off status: Completed true * Provider: Kelli Douglas MD Date: 0 09/17/2024 Generated for Germania lan/Annalise/Marcelo on: 10/01/2024 01:01 PM EST History and Physical Notes * HPI (History of Present Illness) Category Sub-Category Detail Notes Category Not es Symptom(s) [facility] [address], [address] patient is a 74 yo female video telehealth visit, here as emergency. 6 out of 8 have the flu. feels like she has the flu. fevers chills nose running cough. no taste and no smell. Location of patient:: at address listed in demographics for today's visit Patient identification confirmed using:: Name, Telehealth method:: Video co nference where patient is visible to the provider of care Consent:: Patient verbally c onsented to treatment, Patient verbally consented to billing insurance company, Patient informed of any privacy concerns related to method of visit Total time spend talking with patient (m inutes): 0
--- OUTSIDE RECORDS SUMMARY | 2024-09-25 04:44 | XMS_ITS ---
Author Organization Malik Douglas MD Address [address] [place] [phone] Care Team Providers Care Journeyman Wireman Name Role Phone Malik Douglas Primary Care Provider Encounters Encounter Location Date Provider Diagnosis Malik Douglas MD 10 [facility] [address] [place] [phone] 09/25/2024 Malik Douglas Cough R05.9 Assessments Encounter Date Diagnosis (ICD Code) Assessment Notes Treatment Notes Treatment Clinical Notes Section Notes 09/25/2024 Cough (ICD-10 - R05.9) Plan Of Treatment Pending Test Test Name Order Date XR chest 2V 09/25/2024 Next Appt Details Provider Name:Malik duron, 01/14/2026 07:00:00 AM, 10 [facility], [address] [place] [address], [phone], Provider Name:Malik Dunne ieclemencia, 01/21/2026 10:30:00 AM, [address], [address], [place], [place], [phone], Progress Notes * Deborah HARDY MDOB: (74 yo F)Acc No.[id number]:09/25/2024 Patient: Edward Deborah BROWN :1950 A ge:74 Y S ex:Female Address:[address] [place] [place] [phone] Subjective: * Chief Complaints: * * Medical History: * Surgical History: * Hospitalization/Major Diagno stic Procedure: * Medications: Objective: * Vitals: * Physical Examination: Assessment: * Assessment: 1. C ough - R05.9 Plan: * Treatment: * Procedure Codes: * true * Date: Generated for Germania lan/Annalise/Adrianosmitting on: 10/01/2024 01:00 PM EST
--- OUTSIDE RECORDS SUMMARY | 2024-09-27 04:23 | XMS_ITS ---
Author Organization Malik Douglas MD Address [address] [place] [phone] Care Team Providers Care Emblem Fuser Tender Name Role Phone Malik Douglas Primary Care Provider Medications Medication SIG (Take, Route, Fr equency, Duration) Notes Start Date End Date Status Synthroid 88 MCG TAKE 1 TABLET ONCE D AILY INTHE MORNING ON AN EMPTY STOMACH Orally Once a day for 90 days Active Encounters Encounter Location Date Provider Diagnosis Malik Douglas MD [address] [place] [phone] 09/27/2024 Malik Douglas Acquired hypothyroidism E03.9 Assessments Encounter Date Diagnosis (ICD Code) Assessment Notes Treatment Notes Treatment Clinical Notes Section Notes 09/27/2024 Acquired hypothyroidism (ICD-10 - E03.9) Plan Of Treatment Medication Medication Name Sig Start Date Stop Date Notes Synthroid 88 MCG TAKE 1 TABLET ONCE D AILY INTHE MORNING ON AN EMPTY STOMACH Orally Once a day for 90 days Next Appt Details Provider Name:Malik Dunne ier, 01/14/2026 07:00:00 AM, [address] [facility] [address], [address], [place], [place], [phone], Provider Name:Malik Dunne ier, 01/21/2026 10:30:00 AM, [address] [facility] [address], [address], [place], [place], [phone], Progress Notes * Deborah HARDY MDOB: (74 yo F)Acc No.[id number]:09/27/2024 Patient: Edward Deborah BROWN :1950 A ge:74 Y S ex:Female Address:[address] [place] [phone] * Refills Refill Synthroid Tablet, 88 MCG, Orally, 90, TAKE 1 TABLET ONCE DAILY INTHE MORNING ON AN EMPTY STOMACH, Once a day, 90 days, Refills=3 * true * Date: Generated for Germania lan/Annalise/Noemiitting on: 10/01/2024 12:57 PM EST
--- OUTSIDE RECORDS SUMMARY | 2024-10-05 03:30 | XMS_ITS ---
Author Organization Malik Douglas MD Address [address] [place], [place] [phone] Care Team Providers Care Ssis Etl Developer Name Role Phone Malik Doulgas Primary Care Provider [phone] Results Component Value Reference Range Notes UA ClnCatch+Micro w/rflx Cul t Reviewed date:10/05/2024 04:41:17 PM Interpretation: Performing Lab:[facility], [address] [place] [phone] Notes/Report: Urine, Clean Catch Color Urine Yellow Appearance Urine Clear PH 7.5 5.0-9.0 Glucose Urine UA Negative Negative mg/dL Urine Blood Negative Negative Specific Anton - Urine 1.015 1.005-1.025 Urine Protein Negative Neg-Trace mg/dL Urine Ketones Negative Negative mg/dL Nitrite Urine Negative Negative Leukocyte Esterase Urine Small (1+) Negative RBC Urine 0-2 0-2 /HPF WBC Urine 0-5 0-5 /HPF Squamous Epithelial Cell Urine 0-2 0-2 /HPF Bacteria Urine None Seen None Seen Hyaline Casts Urine 0-2 0-2 /LPF REASON FOR VISIT Repeat U/A Encounters Encounter Location Date Provider Diagnosis Malik Douglas MD [address] [place] [address] [place] [phone] 10/05/2024 Malik Douglas Urinary tract infection without hematuria, site unspecified N39.0 Assessments Encounter Date Diagnosis (ICD Code) Assessment Notes Treatment Notes Treatment Clinical Notes Section Notes 10/05/2024 Urinary tract infection without hematuria, site unspecified (ICD-10 - N39.0) Plan Of Treatment Next Appt Details Provider Name:Malik duron, 01/14/2026 07:00:00 AM, [address] [place] [address], Suite [facility], [place], [place], [phone], Provider Name:Malik duron, 01/21/2026 10:30:00 AM, [address] [place] [address], [place] [address], [place], [place], [phone], Progress Notes * Deborah HARDY MDOB: (75 yo F)Acc No.[id number]:10/05/2024 Progress Note Patient: Edward BROWNDeborah Juan Pablo Provider: Kelli Douglas MD :1950 A ge:74 Y S ex:Female Date:10/05/2024 Address:[address] [place], [place] [phone] Subjective: * Chief Complaints: * 1 . Repeat U/A. * Medical History: Objective: * Vitals: Assessment: * Assessment: 1. U rinary tract infection without hematuria, site unspecified - N39.0 (Primary) ? Plan: * Treatment: * * The named appointment provid er may or may not be the originator of this progress note, and it is not deemed complete until electronically signed by the appointment provider. Sign off status: Pending * Provider: Kelli Douglas MD Date: 0 10/05/2024 Generated for Germania lan/Annalise/eTransmitting on: 1 10/01/2024 01:00 PM EST
--- OUTSIDE RECORDS SUMMARY | 2024-10-05 04:00 | XMS_ITS ---
Author Organization Malik Douglas MD Address [address] [place] [phone] Care Team Providers Care Nc Machinist Name Role Phone Malik Douglas Primary Care Provider REASON FOR VISIT RF Gabapentin 100mg Medications Medication SIG (Take, Route, Fr equency, Duration) Notes Start Date End Date Status Gabapentin 100 MG take 1 capsule daily Orally Once a day for 90 days Active Encounters Encounter Location Date Provider Diagnosis Malik Douglas MD [address] [place], [place] [phone] 10/05/2024 Malik Douglas Loss of balance R26.89 Assessments Encounter Date Diagnosis (ICD Code) Assessment Notes Treatment Notes Treatment Clinical Notes Section Notes 10/05/2024 Loss of balance (ICD-10 - R26.89) Plan Of Treatment Medication Medication Name Sig Start Date Stop Date Notes Gabapentin 100 MG take 1 capsule daily Orally Once a day for 90 days Next Appt Details Provider Name:Malik Dunne ier, 01/14/2026 07:00:00 AM, [address], [address], [place], [place], [phone], Provider Name:Malik Dunne ier, 01/21/2026 10:30:00 AM, [address], [address], [place], [place], [phone], Progress Notes * Deborah HARDY MDOB: (74 yo F)Acc No.[id number]:10/05/2024 Patient: Edward Deborah BROWN :1950 A ge:74 Y S ex:Female Address:[address] [place] [phone] * Refills Refill Gabapentin Capsule, 100 MG, Orally, 90, take 1 capsule daily, Once a day, 90 days, Refills=2 * true * Date: Generated for Germania lan/Annalise/eTkassandrasmitting on: 1 10/01/2024 01:00 PM EST
--- OUTSIDE RECORDS SUMMARY | 2025-01-11 03:00 | XMS_ITS ---
Author Organization Malik Douglas MD Address [address] [place], [place] [id number] Care Team Providers Care Scientific Research Associate Name Role Phone Malik Douglas Primary Care Provider [phone] Results Component Value Reference Range Notes Complete Blood Count Auto Di ff Reviewed date:01/13/2025 11:53:34 AM Interpretation: Performing Lab:[facility], [address] [place] [phone] Notes/Report: White Blood Count 5.0 4.8-10.8 X10*3/uL Red Blood Count 4.01 4.20-5.50 X10*6/uL Hemoglobin 11.9 12.0-16.0 g/dl Hematocrit 35.6 37.0-47.0 % Mean Corpuscular Volume 88.8 80.0-98.0 fL Mean Corpuscular Hemoglobin 29.7 27.0-33.0 pg Mean Corpuscular HGB Conc 33.4 31.0-35.0 g/dl Red Cell Distribution Width 13.2 11.0-16.0 % Platelet Count 434 160-400 X10*3/uL Mean Platelet Volume 8.5 9.4-12.3 fL Neutrophils Percent Auto 62.6 45-73 % Imm Gran Pct Auto 0.2 0.0-0.4 % Lymphocytes Percent Auto 25.0 20-40 % Monocytes Percent Auto 10.2 2-11 % Eosinophils Percent Auto 1.6 0-4 % Basophils Percent Auto 0.4 0-2 % NRBC Pct Auto 0.0 0.0-0.2 /100WBC Neutrophils Absolute Auto 3.1 2.0-8.3 x10*3/u L Imm Gran Abs Auto 0.01 0.00-0.03 X10*3/uL Lymphocytes Absolute Auto 1.3 1.2-4.9 X10*3/u L Monocytes Absolute Auto 0.5 0.1-1.2 X10*3/uL Eosinophils Absolute Auto 0.1 0.0-0.4 X10*3/u L Basophils Absolute Auto 0.0 0.0-0.2 X10*3/uL NRBC Abs Auto 0.000 0.0-0.012 X10*3/uL Comprehensive [place]. Panel Fa st Reviewed date:01/13/2025 11:52:55 AM Interpretation: Performing Lab:[facility], [address] [place] [phone] Notes/Report: Sodium 136 135-145 mmol/L Potassium 3.9 3.3-5.1 mmol/L Chloride 101 96-108 mmol/L Carbon Dioxide 27 22-29 mmol/L Anion Gap 12 12-20 Blood Urea Nitrogen 13 9-16 mg/dL Creatinine 0.53 0.5-1.4 mg/dL Estimated Glomerular Filt Rate > 60 Chronic Kidney Disease: Estimated GFR < 60 mL/min/1.73m2 Severe Kidney Disease: Estimated GFR < 15 mL/min/1.73m2 Glucose Fasting 88 60-99 mg/dL Calcium 9.4 8.4-10.2 mg/dL Bilirubin Total 0.4 0.0-1.0 mg/dL Aspartate Amino Transferase 29 5-31 U/L Alanine Aminotransferase 20 0-31 U/L Total Protein 6.6 6.5-8.0 g/dL Albumin Level 4.2 3.5-5.0 g/dL Alkaline Phosphatase 48 39-117 U/L Lipid Panel Reviewed date:01/11/2025 04:14:59 PM Interpretation: Performing Lab:[facility], [address] [place] [phone] Notes/Report: Triglycerides 55 <150 mg/dL Desirable Triglyceride: less than 150 mg/dL Borderline High Triglyceride 150-199 mg/dL High Triglyceride: 200-499 mg/dL Very High Triglyceride: greater than or equal to 5OO mg/dL Cholesterol 243 <200 mg/dL Desirable Cholesterol: less than 200 mg/dL Borderline High Cholesterol: 200-239 mg/dL High Cholesterol: greater than 239 mg/dL LDL Cholesterol Calculated 131 <100 mg/dL Desirable LDL: less than 100 mg/dL Near Optimal/Above Optimal LDL: 110-129 mg/dL Borderline High LDL: 130-159 mg/dL High LDL: 160-189 mg/dL Very High LDL: greater than or equal to 190 mg/dL HDL Cholesterol 101 >40 mg/dL Desirable HDL: greater than 40 mg/dL Note: This HDL assay may give artificially low results in patients with liver disease. TSH reflex Free T4 Reviewed date:01/11/2025 01:48:44 PM Interpretation: Performing Lab:[facility], [address] [place] [phone] Notes/Report: TSH reflex Free T4 1.30 0.32-4.0 uIU/mL UA ClnCatch+Micro w/rflx Cul t Reviewed date:01/13/2025 11:55:18 AM Interpretation: Performing Lab:[address] [phone] Notes/Report: Urine, Clean Catch Color Urine Yellow Appearance Urine Cloudy PH 7.0 5.0-9.0 Glucose Urine UA Negative Negative mg/dL Urine Blood Trace Negative Specific [place] - Urine 1.015 1.005-1.025 Urine Protein Negative Neg-Trace mg/dL Urine Ketones Negative Negative mg/dL Nitrite Urine Negative Negative Leukocyte Esterase Urine Trace Negative RBC Urine 3-5 0-2 /HPF WBC Urine 0-5 0-5 /HPF Squamous Epithelial Cell Urine 0-2 0-2 /HPF Bacteria Urine None Seen None Seen Hyaline Casts Urine 0-2 0-2 /LPF REASON FOR VISIT yearly fasting labs Encounters Encounter Location Date Provider Diagnosis Malik Douglas MD [address] [place] [address] [place] [phone] 01/11/2025 Malik Douglas Essential hypertensi on I10 ; Acquired hypothyroidism E03.9 ; Anemia, unspecified type D64.9 and Neutropenia, unspecified type D70.9 Assessments Encounter Date Diagnosis (ICD Code) Assessment Notes Treatment Notes Treatment Clinical Notes Section Notes 01/11/2025 Essential hypertension (ICD-10 - I10) 01/11/2025 Acquired hypothyroidism (ICD-10 - E03.9) 01/11/2025 Anemia, unspecified type (ICD-10 - D64.9) 01/11/2025 Neutropenia, unspecified type (ICD-10 - D70.9) Plan Of Treatment Next Appt Details Provider Name:Malik Dunne ier, 01/14/2026 07:00:00 AM, [address] [place] [address], Suite [facility], [place], [place], [phone], Provider Name:Malik Dunne ier, 01/21/2026 10:30:00 AM, [address] [place] [address], Suite [facility], [place], [place], [phone], Progress Notes * Deborah HARDY MDOB: (75 yo F)Acc No.[id number]:01/11/2025 Progress Note Patient: Edward Deborah BROWN Provider: Kelli Douglas MD :1950 A ge:74 Y S ex:Female Date:01/11/2025 Address:[address] [place] [id number] Subjective: * Chief Complaints: * 1 . Yearly fasting labs. * Medical History: Objective: * Vitals: Assessment: * Assessment: 1. E ssential hypertension - I10 (Primary) 2 . A cquired hypothyroidism - E03.9 3 . A nemia, unspecified type - D64.9 4 . N eutropenia, unspecified type - D70.9 Plan: * Treatment: 2. A cquired hypothyroidism L AB: Complete Blood Count Auto Diff (Collection Date & Time - 01/11/2025 08:00 AM) L AB: Comprehensive [place]. Panel Fast (Collection Date & Time - 01/11/2025 08:00 AM) L AB: Lipid Panel (Collection Date & Time - 01/11/2025 08:00 AM) L AB: TSH reflex Free T4 (Collection Date & Time - 01/11/2025 08:00 AM) L AB: UA ClnCatch+Micro w/rflx Cult (Collection Date & Time - 01/11/2025 08:00 AM) 3. A nemia, unspecified type L AB: Complete Blood Count Auto Diff (Collection Date & Time - 01/11/2025 08:00 AM) L AB: Comprehensive [place]. Panel Fast (Collection Date & Time - 01/11/2025 08:00 AM) L AB: Lipid Panel (Collection Date & Time - 01/11/2025 08:00 AM) L AB: TSH reflex Free T4 (Collection Date & Time - 01/11/2025 08:00 AM) L AB: UA ClnCatch+Micro w/rflx Cult (Collection Date & Time - 01/11/2025 08:00 AM) 4. N eutropenia, unspecified type L AB: Complete Blood Count Auto Diff (Collection Date & Time - 01/11/2025 08:00 AM) L AB: Comprehensive [place]. Panel Fast (Collection Date & Time - 01/11/2025 08:00 AM) L AB: Lipid Panel (Collection Date & Time - 01/11/2025 08:00 AM) L AB: TSH reflex Free T4 (Collection Date & Time - 01/11/2025 08:00 AM) L AB: UA ClnCatch+Micro w/rflx Cult (Collection Date & Time - 01/11/2025 08:00 AM) * Procedure Codes: 3 6415 VENIPUNCT, ROUTINE* * * The named appointment provid er may or may not be the originator of this progress note, and it is not deemed complete until electronically signed by the appointment provider. Sign off status: Pending * Provider: Kelli Douglas MD Date: 0 01/11/2025 Generated for Germania lan/Annalise/eTransmitting on: 1 10/01/2024 12:58 PM EST
--- OUTSIDE RECORDS SUMMARY | 2025-01-14 05:30 | XMS_ITS ---
Author Organization Malik Douglas MD Address [address] [place], [place] [id number] Care Team Providers Care Agency Director Name Role Phone Malik Douglas Primary Care Provider Allergies Allergen (clinical drug ingredient) Drug/Non Drug Allergy documented on EMR Reaction Allergy Type Onset Date Status Pneumococcal Vac Polyvalent swelling and redness Drug Allergy Active lisinopril Lisinopril cough Drug Allergy Activ e levaquin (uncoded) hives rash Allergy Active REASON FOR VISIT review labs Medications Medication SIG (Take, Route, Frequency, Duration) Notes Start Date End Date Status Molnupiravir 200 MG 4 capsules Orally ev bibiana 12 hrs for 5 day(s) 12/18/2021 Not-Taking Escitalopram Oxalate 5 MG TAKE 1 TABLET BY MOUTH EVERY DAY FOR 30 DAYS for 90 Not-Taking Gabapentin 100 MG take 1 capsule daily Orally Once a day for 90 days Active Albuterol Sulfate HFA 108 (90 Base) MCG/ACT 2 puffs as needed Inhalation every 4 hrs for 30 days Active Tolterodine Tartrate ER 4 MG 1 capsule Orally Once a day Active Losartan Potassium 100 MG 1 tablet Orall y Once a day Active Synthroid 88 MCG TAKE 1 TABLET ONCE DAILY INTHE MORNING ON AN EMPTY STOMACH Orally Once a day Active amLODIPine Besylate 5 MG 1 tablet Orally Once a day Active Flonase 50 MCG/ACT 1 spray in each nost ril Nasally Once a day for 30 day(s) 12/12/2012 Not-Taking traMADol HCl 50 MG 1 tablet as needed Orally every 8 hours as needed for 7 days 04/05/2019 Not-Taking predniSONE 20 MG 1 tablet Orally Once a day for 5 days 06/04/2021 Not-Taking Paxil 10 MG 1 tablet in the morn ing Orally Once a day for 30 day(s) 03/07/2015 Not-Taking Ambien 5 MG 1 tablet at bedtime Orally Once a day for 20 Not-Taking Social History Tobacco Use: Social History Observation Description Date Details (start date - stop date) Never Smoker NA - NA Tobacco Use/Smoking Question Answer Notes Patient is a nonsmoker Additional Findings: Tobacco Non-User Cu rrent non-smoker, currently using no form of tobacco Alcohol Screen Question Answer Notes Did you have a drink contain ing alcohol in the past year? Yes How often did you have a dri nk containing alcohol in the past year? 2 to 3 times a week (3 points) How many drinks did you have on a typical day when you were drinking in the past year? 1 or 2 drinks (0 point) How often did you have 6 or more drinks on one occasion in the past year? Never (0 point) Points 3 Interpretation Positive Vital Signs Blood pressure systolic 132 mm Hg 01/15/20 25 Blood pressure diastolic 64 mm Hg 025 Height 64 in 01/14/2025 Weight 130 lbs 01/14/2025 BMI 22.31 kg/m2 01/14/2025 Encounters Encounter Location Date Provider Diagnosis Malik Douglas MD [address] [place] [address] [address] [place], [place] [phone] 01/14/2025 Malik Douglas Essential hypertensi on I10 ; Anemia, unspecified type D64.9 ; Wheezing R06.2 ; Acquired hypothyroidism E03.9 ; Anxiety F41.9 and Depression screening Z13.31 Assessments Encounter Date Diagnosis (ICD Code) Assessment Notes Treatment Notes Treatment Clinical Notes Section Notes 01/14/2025 Essential hypertension (ICD-10 - I10) well controlled, will cpntinue current regiment 01/14/2025 Anemia, unspecified type (ICD-10 - D64.9) is stable for years, will cntinue to monitor 01/14/2025 Wheezing (ICD-10 - R06.2) stable, will continue current regiment 01/14/2025 Acquired hypothyroidism (ICD-10 - E03.9) stable, will continue curent regiment 01/14/2025 Anxiety (ICD-10 - F41.9) doing well, will continue cujrrent regiment 01/14/2025 Depression screening (ICD-10 - Z13.31) negative screen Plan Of Treatment Medication Medication Name Sig Start Date Stop Date Notes Albuterol Sulfate HFA 108 (9 0 Base) MCG/ACT 2 puffs as needed Inhalation every 4 hrs for 30 days Losartan Potassium 100 MG 1 tablet Orally Once a day Synthroid 88 MCG TAKE 1 TABLET ONCE D AILY INTHE MORNING ON AN EMPTY STOMACH Orally Once a day amLODIPine Besylate 5 MG 1 tablet Orally Once a day Treatment Notes Assessment Notes Essential hypertension well controlled, will cpntinue current regiment Anemia, unspecified type is stable for y ears, will cntinue to monitor Wheezing stable, will continu e current regiment Acquired hypothyroidism stable, will con tinue curent regiment Anxiety doing well, will con tinue cujrrent regiment Depression screening negative screen Next Appt Details Follow Up: 6 Months, Reason: Provider Name:Malik duron, 01/14/2026 07:00:00 AM, [address] [place] [address], [address], [phone], Provider Name:Malik duron, 01/21/2026 10:30:00 AM, [address] [place] [address], [address], [phone], Progress Notes * Deborah HARDY MDOB: (74 yo F)Acc No.[id number]:01/14/2025 Patient: Deborah GAYTAN Provider: Kelli Douglas MD :1950 A ge:74 Y S ex:Female Date:01/14/2025 Address:[address], [place], [id number] Subjective: * Chief Complaints: * R eview labs * HPI: D epression Screening: PHQ-9 L ittle interest or pleasure in doing things N ot at all, F eeling down, depressed, or hopeless N ot at all, T rouble falling or staying asleep, or sleeping too much N ot at all, F eeling tired or having little energy N ot at all, P oor appetite or overeating N ot at all, F eeling bad about yourself or that you are a failure, or have let yourself or your family down N ot at all, T rouble concentrating on things, such as reading the newspaper or watching television N ot at all, M oving or speaking so slowly that other people could have noticed; or the opposite, being so fidgety or restless that you have been moving around a lot more than usual N ot at all, T houghts that you would be better off or of hurting yourself in some way N ot at all, T otal Score 0 . I nterpretation and Intervention D epression Screening Findings N egative, F ollow-Up for Depression : review of PHQ-9 found negative result, no follow-up needed. C ommunication Needs: Communication Needs D oes the patient have a hearing impairment N o, D oes the patient have a vision impairment? Y es, I f yes, what is the vision impairment? G lasses, D oes the patient have a cognition impairment? N o. F all Risk: History H ave you had any falls with injury in the past year? N o, H ave you had two or more falls in the past year? N o. S RAFAEL Questions: SDOH Questions I n the past year have you been worried about losing housing? N o, I n the past year have you or any family members you live with been unable to get any of the following when it was really needed? Check all that apply: N one. S ymptom(s): patient is 74 yo female here for visit with review of recent labs and follow up of chronic issues d oesn't feel right. * ROS: G eneral/Constitutional: Change in appetite d enies. C hills d enies. F ever d enies. O phthalmologic: Blurred vision d enies. D ischarge d enies. P ain d enies. E NT: Decreased hearing d enies. S ore throat d enies.?Swollen glands d enies. E ndocrine: Cold intolerance d enies. E xcessive thirst d enies. H eat intolerance d enies. W eight loss d enies. R espiratory: Cough d enies. S hortness of breath at rest d enies. S hortness of breath with exertion d enies. W heezing d enies. C ardiovascular: Chest pain at rest d enies. C hest pain with exertion?denies. I rregular heartbeat d enies. S hortness of breath d enies. ? G astrointestinal: Abdominal pain d enies. C hange in bowel habits d enies. D iarrhea d enies. N ausea d enies. R ectal bleeding d enies. V omiting d enies . G enitourinary: Blood in urine d enies. D ifficulty urinating d enies. F requent urination d enies. U rinary incontinence D enies. M usculoskeletal: Painful joints d enies. W eakness d enies. ? S kin: Dry skin d enies. I tching d enies. D enies?Mole(s), changes in moles, new moles or any lesions of concern. D enies P hotosensitivity. R alfreda d enies. N eurologic: Dizziness d enies. F ainting d enies. H eadache?denies. * Medical History: * Surgical History: * Hospitalization/Major Diagno stic Procedure: * Family History: F ather: 74 yrs, diagnosed with Cancer. M other: 78 yrs, diagnosed with Cancer. 1 brother(s) , 1 sister(s) - healthy. 1 son(s) , 2 daughter(s) - healthy. . father, esophogeal cancer mother, bile duct cancer no family history of drug abuse or mentalillness, No pertinent family medical history, No pertinent family medical history, Denies mental health/substance abuse family history, No pertinent family medical history. * Social History: T obacco Use: T obacco Use/Smoking P ataf[place] is a n onsmoker, A dditional Findings: Tobacco Non-User C urrent non-smoker, currently using no form of tobacco. D rugs/Alcohol: A lcohol Screen D id you have a drink containing alcohol in the past year? Y es, H ow often did you have a drink containing alcohol in the past year? 2 to 3 times a week (3 points), H ow many drinks did you have on a typical day when you were drinking in the past year? 1 or 2 drinks (0 point), H ow often did you have 6 or more drinks on one occasion in the past year? N ever (0 point), P oints 3 , I nterpretation P ositive. M iscellaneous: C affeine: yes, frequency:, 1-2 cups per day. Children: yes. Exercise: yes, 3 mile walk daily Jazzercise 3-4 times a week. Home smoke detector use: yes. Living with: spouse. Marital status: . Occupation: weeks/months/years, works full-time. Pets: none. Travel outside of the [place]: no. * Medications: T akingTolterodine Tartrate ER 4 MG Capsule Extended Release 24 Hour 1 capsule Orally Once a day Albuterol Sulfate HFA 108 (90 Base) MCG/ACT Aerosol Solution INHALE 1 PUFF BY MOUTH NEEDED EVERY 4 HOURS FOR 14 DAYS amLODIPine Besylate 5 MG Tablet 1 tablet Orally Once a day Losartan Potassium 100 MG Tablet 1 tablet Orally Once a day Synthroid 88 MCG Tablet TAKE 1 TABLET ONCE DAILY INTHE MORNING ON AN EMPTY STOMACH Orally Once a day Gabapentin 100 MG Capsule take 1 capsule daily Orally Once a day Taking Tolterodine Tartrate ER 4 MG Capsule Extended Release 24 Hour 1 capsule Orally Once a day Taking Albuterol Sulfate HFA 108 (90 Base) MCG/ACT Aerosol Solution INHALE 1 PUFF BY MOUTH NEEDED EVERY 4 HOURS FOR 14 DAYS Taking amLODIPine Besylate 5 MG Tablet 1 tablet Orally Once a day Taking Losartan Potassium 100 MG Tablet 1 tablet Orally Once a day Taking Synthroid 88 MCG Tablet TAKE 1 TABLET ONCE DAILY INTHE MORNING ON AN EMPTY STOMACH Orally Once a day Taking Gabapentin 100 MG Capsule take 1 capsule daily Orally Once a day Not-Taking/PRNEscitalopram Oxalate 5 MG Tablet [...] in each nostril Nasally Once a day DiscontinuedPaxlovid (300/100) 20 x 150 MG & 10 x 100MG Tablet Therapy Pack 3 tablets Orally Twice a day Oseltamivir Phosphate 75 MG Capsule 1 capsule Orally Twice a day Medication List reviewed and reconciled with the patientDiscontinued Paxlovid (300/100) 20 x 150 MG & 10 x 100MG Tablet Therapy Pack 3 tablets Orally Twice a day Discontinued Oseltamivir Phosphate 75 MG Capsule 1 capsule Orally Twice a day Medication List reviewed and reconciled with the patient * Allergies: l evaquin: hives rashPneumococcal Vac Polyvalent: swelling and rednessLisinopril: coughyes[Allergies Verified] Objective: * Vitals: H t: 64, Wt: 130, BMI:22.31, BP:132/64, Wt-k.97. * P ast Orders: L ab:TSH reflex Free T4 (Order Date - 01/11/2025) (Collection Date & Time - 01/11/2025 08:00 AM) Value Reference Range TSH reflex Free T4 1.30 0.32-4.0 - uIU/mL L ab:UA ClnCatch+Micro w/rflx Cult (Order Date - 01/11/2025) (Collection Date & Time - 01/11/2025 08:00 AM) Value Reference Range Color Urine Yellow - Appearance Urine Cloudy - PH 7.0 5.0-9.0 - Glucose Urine UA Negative Negative - mg/dL Urine Blood Trace A Negative - Specific [place] - Urine 1.015 1.005-1.025 - Urine Protein Negative Neg-Trace - mg/dL Urine Ketones Negative Negative - mg/dL Nitrite Urine Negative Negative - Leukocyte Esterase Urine Trace A Negative - RBC Urine 3-5 A 0-2 - /HPF WBC Urine 0-5 0-5 - /HPF Squamous Epithelial Cell Urine 0-2 0-2 - /HP F Bacteria Urine None Seen None Seen - Hyaline Casts Urine 0-2 0-2 - /LPF L ab:Complete Blood Count Auto Diff (Order Date - 01/11/2025) (Collection Date & Time - 01/11/2025 08:00 AM) Value Reference Range White Blood Count 5.0 4.8-10.8 - X10*3/uL Red Blood Count 4.01 L 4.20-5.50 - X10*6/uL Hemoglobin 11.9 L 12.0-16.0 - g/dl Hematocrit 35.6 L 37.0-47.0 - % Mean Corpuscular Volume 88.8 80.0-98.0 - fL Mean Corpuscular Hemoglobin 29.7 27.0-33.0 - pg Mean Corpuscular HGB Conc 33.4 31.0-35.0 - g/ dl Red Cell Distribution Width 13.2 11.0-16.0 - % Platelet Count 434 H 160-400 - X10*3/uL Mean Platelet Volume 8.5 L 9.4-12.3 - fL Neutrophils Percent Auto 62.6 45-73 - % Imm Gran Pct Auto 0.2 0.0-0.4 - % Lymphocytes Percent Auto 25.0 20-40 - % Monocytes Percent Auto 10.2 2-11 - % Eosinophils Percent Auto 1.6 0-4 - % Basophils Percent Auto 0.4 0-2 - % NRBC Pct Auto 0.0 0.0-0.2 - /100WBC Neutrophils Absolute Auto 3.1 2.0-8.3 - x10* 3/uL Imm Gran Abs Auto 0.01 0.00-0.03 - X10*3/uL Lymphocytes Absolute Auto 1.3 1.2-4.9 - X10* 3/uL Monocytes Absolute Auto 0.5 0.1-1.2 - X10*3/ uL Eosinophils Absolute Auto 0.1 0.0-0.4 - X10* 3/uL Basophils Absolute Auto 0.0 0.0-0.2 - X10*3/ uL NRBC Abs Auto 0.000 0.0-0.012 - X10*3/uL L ab:Comprehensive [place]. Panel Fast (Order Date - 01/11/2025) (Collection Date & Time - 01/11/2025 08:00 AM) Value Reference Range Sodium 136 135-145 - mmol/L Bilirubin Total 0.4 0.0-1.0 - mg/dL Aspartate Amino Transferase 29 5-31 - U/L Alanine Aminotransferase 20 0-31 - U/L Total Protein 6.6 6.5-8.0 - g/dL Albumin Level 4.2 3.5-5.0 - g/dL Alkaline Phosphatase 48 39-117 - U/L Potassium 3.9 3.3-5.1 - mmol/L Chloride 101 96-108 - mmol/L Carbon Dioxide 27 22-29 - mmol/L Anion Gap 12 12-20 - Blood Urea Nitrogen 13 9-16 - mg/dL Creatinine 0.53 0.5-1.4 - mg/dL Estimated Glomerular Filt Rate > 60 - Glucose Fasting 88 60-99 - mg/dL Calcium 9.4 8.4-10.2 - mg/dL L ab:Lipid Panel (Order Date - 01/11/2025) (Collection Date & Time - 01/11/2025 08:00 AM) Value Reference Range Triglycerides 55 <150 - mg/dL Cholesterol 243 H <200 - mg/dL LDL Cholesterol Calculated 131 H <100 - mg/dL HDL Cholesterol 101 >40 - mg/dL * Examination: G eneral Examination: GENERAL APPEARANCE: w ell developed, well nourished, in no acute distress. HEAD: n ormocephalic, atraumatic. EYES: p upils equal, round, reactive to light and accommodation, sclera non-icteric. EARS: n ormal. ORAL CAVITY: m ucosa moist. THROAT: c lear. NECK/THYROID: n maryanne supple, full range of motion, no cervical lymphadenopathy, no bruits. SKIN: w arm and dry, no suspicious lesions. HEART: r egular rate and rhythm, S1, S2 normal, no murmurs.? LUNGS: c lear to auscultation bilaterally. BREASTS: N o mass, no lump. ABDOMEN: s oft, nontender, nondistended, bowel sounds present, normal, no organomegaly , no masses palpable. RECTAL EXAM: d one by manager gyn. FEMALE GENITOURINARY: d one by manager gyn. EXTREMITIES: n o clubbing, cyanosis, or edema. NEUROLOGIC: n onfocal, motor strength normal upper and lower extremities, sensory exam intact. Assessment: * Assessment: 1. E ssential hypertension - I10 (Primary) 2 . A nemia, unspecified type - D64.9 3 . W heezing - R06.2 4 . A cquired hypothyroidism - E03.9 5 . A nxiety - F41.9 6 . D epression screening - Z13.31? Plan: * Treatment: 2. A nemia, unspecified type Notes: is stable for years, will cntinue to monitor 3. W heezing Refill Albuterol Sulfate HFA Aerosol Solution, 108 (90 Base) MCG/ACT, 2 puffs as needed, Inhalation, every 4 hrs, 30 days, 1, Refills 3. Notes: stable, will continue current regiment 4. A cquired hypothyroidism Continue Synthroid Tablet, 88 MCG, TAKE 1 TABLET ONCE DAILY INTHE MORNING ON AN EMPTY STOMACH, Orally, Once a day. Notes: stable, will continue curent regiment 5. A nxiety Notes: doing well, will continue cujrrent regiment 6. D epression screening Notes: negative screen * Procedure Codes: G 2211 Complex e/m visit add on * Follow Up: 6 Months * * Sign off status: Completed true * Provider: Kelli Douglas MD Date: 0 01/14/2025 Generated for Germania lan/Annalise/eTransmitting on: 1 10/01/2024 12:58 PM EST History and Physical Notes * HPI (History of Present Illness) Category Sub-Category Detail Notes Category Not es Symptom(s) patient is 74 y o female here for visit with review of recent labs and follow up of chronic issues doesn't feel right Depression Screening PHQ-9 Little inte rest or pleasure in doing things: Not at all Feeling down, depressed, or hopeless: No t at all Trouble falling or staying asleep, or sl eeping too much: Not at all Feeling tired or having little energy: N ot at all Poor appetite or overeating: Not at all Feeling bad about yourself o r that you are a failure, or have let yourself or your family down: Not at all Trouble concentrating on thi ngs, such as reading the newspaper or watching television: Not at all Moving or speaking so slowly that other people could have noticed; or the opposite, being so fidgety or restless that you have been moving around a lot more than usual: Not at all Thoughts that you would be b gómez off or of hurting yourself in some way: Not at all Total Score: 0 Interpretation and Intervention Depression Leora ellison Findings: Negative Follow-Up for Depression: : review of PH Q-9 found negative result, no follow-up needed SDOH Questions SDOH Questions In the past year have you been worried about losing housing?: No In the past year have you or any family members you live with been unable to get any of the following when it was really needed? Check all that apply:: None Fall Risk History Have you had any falls with injury i n the past year?: No Have you had two or more falls in the st year?: No Communication Needs Communication Needs Does the patient have a hearing impairment: No Does the patient have a vision impairmen t?: Yes If yes, what is the vision impairment?: Glasses Does the patient have a cognition impair ment?: No Examination Category Sub-Category Detail Notes Category Not es General Examination GENERAL APPEARANCE: well dev eloped, well nourished, in no acute distress HEAD: normocephalic, atrau matic EYES: pupils equal, round, reactive to light and accommodation, sclera non-icteric EARS: normal THROAT: clear NECK/THYROID: neck supple, full ra nge of motion, no cervical lymphadenopathy, no bruits HEART: regular rate and rhy thm, S1, S2 normal, no murmurs LUNGS: clear to auscultatio n bilaterally ABDOMEN: soft, nontender, non distended, bowel sounds present, normal, no organomegaly , no masses palpable NEUROLOGIC: nonfocal, motor stre ngth normal upper and lower extremities, sensory exam intact SKIN: warm and dry, no yvan picious lesions EXTREMITIES: no clubbing, cyanosi s, or edema BREASTS: No mass, no lump RECTAL EXAM: done by manager gyn FEMALE GENITOURINARY: done by manager gyn ORAL CAVITY: mucosa moist
--- OUTSIDE RECORDS SUMMARY | 2025-05-30 04:00 | XMS_ITS ---
Author Organization Malik Douglas MD Address [address] [place] [phone] Care Team Providers Care Associate Music Professor Name Role Phone Malki Douglas Primary Care Provider REASON FOR VISIT Flu Vac Immunizations Vaccine Route Administration Date Status Comme nts Fluarix Quadrivalent - 150 IM Intramuscular 05/30/2025 Adm inistered Encounters Encounter Location Date Provider Diagnosis Malik Douglas MD [address] [place] [phone] 05/30/2025 Malik Douglas Encounter for administration of vaccine Z23 Assessments Encounter Date Diagnosis (ICD Code) Assessment Notes Treatment Notes Treatment Clinical Notes Section Notes 05/30/2025 Encounter for administration of vaccine (ICD-10 - Z23) Plan Of Treatment Next Appt Details Provider Name:Malik duron, 01/14/2026 07:00:00 AM, [address], [address], [place], [phone], Provider Name:Malik Dunne ier, 01/21/2026 10:30:00 AM, [address] [facility], [address], [place], [phone], Progress Notes * Deborah HARDY MDOB: (75 yo F)Acc No.[id number]:05/30/2025 Progress Note Patient: Deborah GAYTAN Provider: Kelli Douglas MD :1950 A ge:75 Y S ex:Female Date:05/30/2025 Address:[address] [place] [address] [id number] Subjective: * Chief Complaints: * 1 . Flu Vac. * Medical History: Objective: * Vitals: Assessment: * Assessment: 1. E ncounter for administration of vaccine - Z23 (Primary) Plan: * Treatment: * Immunizations: Fluarix Quadrivalent - 150 : 0.5 mL (Dose No:1) (Route: Intramuscular) given by Lore Merida , Office Staff on Left Deltoid * Procedure Codes: 9 0656 FLU VACCINE NO PRESERV 3 & >, G0008 ADMN FLU VAC NO FEE SCHED SAME DAY * * The named appointment provid er may or may not be the originator of this progress note, and it is not deemed complete until electronically signed by the appointment provider. Sign off status: Pending * Provider: Kelli Douglas MD Date: 1 Generated for Germania lan/Annalise/Adrianosmitting on: 10/01/2024 12:57 PM EST
--- OUTSIDE RECORDS SUMMARY | 2025-07-16 05:00 | XMS_ITS ---
Author Organization Malik Douglas MD Address [address] [place] [phone] Care Team Providers Care Ux Consultant Name Role Phone Malik Douglas Primary Care Provider [phone] Allergies Allergen (clinical drug ingredient) Drug/Non Drug Allergy documented on EMR Reaction Allergy Type Onset Date Status Pneumococcal Vac Polyvalent swelling and redness Drug Allergy Active lisinopril Lisinopril cough Drug Allergy Activ e levaquin (uncoded) hives rash Allergy Active REASON FOR VISIT 6 month, wacked her head on the sink at the [employer] 1 week ago c/o headache Medications Medication SIG (Take, Route, Frequency, Duration) Notes Start Date End Date Status Synthroid 88 MCG TAKE 1 TABLET ONCE DAILY INTHE MORNING ON AN EMPTY STOMACH Orally Once a day Active amLODIPine Besylate 5 MG 1 tablet Orally Once a day Active Escitalopram Oxalate 5 MG TAKE 1 TABLET BY MOUTH EVERY DAY FOR 30 DAYS for 90 Not-Taking Gabapentin 100 mg TAKE 1 CAPSULE DAILY Active Albuterol Sulfate HFA 108 (90 Base) MCG/ACT 2 puffs as needed Inhalation every 4 hrs for 30 days Active Losartan Potassium 100 MG 1 tablet Orall y Once a day for 90 days Active Flonase 50 MCG/ACT 1 spray in each nost ril Nasally Once a day for 30 day(s) 12/12/2012 Not-Taking Paxil 10 MG 1 tablet in the morn ing Orally Once a day for 30 day(s) 03/07/2015 Not-Taking Ambien 5 MG 1 tablet at bedtime Orally Once a day for 20 Not-Taking predniSONE 20 MG 1 tablet Orally Once a day for 5 days 06/04/2021 Not-Taking Molnupiravir 200 MG 4 capsules Orally ev bibiana 12 hrs for 5 day(s) 12/18/2021 Not-Taking traMADol HCl 50 MG 1 tablet as needed Orally every 8 hours as needed for 7 days 04/05/2019 Not-Taking Vital Signs Blood pressure systolic 152 mm Hg 07/16/20 25 Blood pressure diastolic 66 mm Hg 025 Height 64 in 07/16/2025 Weight 127 lbs 07/16/2025 BMI 21.8 kg/m2 07/16/2025 weight is down 3 pounds [facility] 6[facility]-25 Encounters Encounter Location Date Provider Diagnosis Malik Douglas MD [address] [place] [address] [place] [phone] 07/16/2025 Malik Douglas Essential hypertension I10 Assessments Encounter Date Diagnosis (ICD Code) Assessment Notes Treatment Notes Treatment Clinical Notes Section Notes 07/16/2025 Essential hypertension (ICD-10 - I10) running a gw9nddo high will see nephrology this month Plan Of Treatment Medication Medication Name Sig Start Date Stop Date Notes Losartan Potassium 100 MG 1 tablet Orall y Once a day for 90 days Treatment Notes Assessment Notes Essential hypertension running a [id number] high will see nephrology this month Next Appt Details Provider Name:Malik duron, 01/14/2026 07:00:00 AM, [address] [place] [address], [place] [address], [place], [place], [phone], Provider Name:Malik duron, 01/21/2026 10:30:00 AM, [address], [address], [place], [place], [phone], Progress Notes * Deborah HARDY MDOB: (75 yo F)Acc No.[id number]:07/16/2025 Progress Notes Patient: Deborah GAYTAN Provider: Kelli Douglas MD :1950 A ge:75 Y S ex:Female Date:07/16/2025 Address:[address] [place] [address], [facility] [id number] Subjective: * Chief Complaints: * 6 monthWacked her head on the sink at the [employer] 1 week ago c/o headache * HPI: S ymptom(s): patient is a 75 yo female here for 6 month follow up visit/ hit head and has a lump on back of head.last week. D epression Screening: PHQ-9 L ittle interest [...] Score 0 . I nterpretation and Intervention P atient Lifestyle Goals P atient wants to maintain a healthy emotional balance, B arriers N o specific barriers, is motivated to feel better, works at this everyday, S elf-Managment Goals E xercise at least 3xs per week. * ROS: G eneral/Constitutional: Denies Epifanio hayes. D enies F atigue. D enmartita F ever. D enies H eadache. E NT: Denmartita S ore throat. R espiratory: Jonn Godfrey ough. Rima enmartita S hortness of breath at rest. D enmartita S hortness of breath with exertion. G astrointestinal: Jonn Abarca iarrhea. Rima darby N ausea. P sychiatric: Admits A nxiety. Rima Abarca epressed mood. D mehnaz Abarca ifficulty sleeping. A dmits S tressors. A dmits S ubstance abuse. ? * Medical History: * Surgical History: * Hospitalization/Major Diagno stic Procedure: * Medications: T akingAlbuterol Sulfate HFA 108 (90 Base) MCG/ACT Aerosol Solution 2 puffs as needed Inhalation every 4 hrs amLODIPine Besylate 5 MG Tablet 1 tablet Orally Once a day Losartan Potassium 100 MG Tablet 1 tablet Orally Once a day Synthroid 88 MCG Tablet TAKE 1 TABLET ONCE DAILY INTHE MORNING ON AN EMPTY STOMACH Orally Once a day Gabapentin 100 mg Capsule TAKE 1 CAPSULE DAILY Taking Albuterol Sulfate HFA 108 (90 Base) MCG/ACT Aerosol Solution 2 puffs as needed Inhalation every 4 hrs Taking amLODIPine Besylate 5 MG Tablet 1 tablet Orally Once a day Taking Losartan Potassium 100 MG Tablet 1 tablet Orally Once a day Taking Synthroid 88 MCG Tablet TAKE 1 TABLET ONCE DAILY INTHE MORNING ON AN EMPTY STOMACH Orally Once a day Taking Gabapentin 100 mg Capsule TAKE 1 CAPSULE DAILY Not-Taking/PRNEscitalopram Oxalate 5 MG Tablet TAKE 1 [...] in each nostril Nasally Once a day DiscontinuedTolterodine Tartrate ER 4 MG Capsule Extended Release 24 Hour 1 capsule Orally Once a day Medication List reviewed and reconciled with the patientDiscontinued Tolterodine Tartrate ER 4 MG Capsule Extended Release 24 Hour 1 capsule Orally Once a day Medication List reviewed and reconciled with the patient * Allergies: l evaquin: hives rashPneumococcal Vac Polyvalent: swelling and rednessLisinopril: coughyes[Allergies Verified] Objective: * Vitals: H t: 64, Wt: 127, BMI:21.8, BP:152/66, Repeat BP:156/80, Wt-k.61. weight is down 3 pounds since 01-14-25. * Examination: G eneral Examination: GENERAL APPEARANCE: w ell developed, well nourished. HEAD: n ormocephalic. SKIN: g ood turgor. HEART: r egular rate and rhythm, no murmurs, rubs, gallops.? LUNGS: g ood air movement, no wheezes, rales, rhonchi, clear to auscultation bilaterally. Assessment: * Assessment: 1. E ssential hypertension - I10 (Primary) Plan: * Treatment: * Procedure Codes: * * Sign off status: Completed true * Provider: Kelli Douglas MD Date: 09/16/2024 Generated for Germania lan/Annalise/Marcelo on: 10/01/2024 12:57 PM EST History and Physical Notes * HPI (History of Present Illness) Category Sub-Category Detail Notes Category Not es Symptom(s) patient is a 75 yo female here for 6 month follow up visit/ hit head and has a lump on back of head.last week Depression Screening PHQ-9 Little inte rest or [...] all Total Score: 0 Interpretation and Intervention Patient Lifestyl e Goals: Patient wants to maintain a healthy emotional balance Barriers: No specific barriers , is motivated to feel better, works at this everyday Self-Managment Goals: Exercise at least 3xs per week Examination Category Sub-Category Detail Notes Category Not es General Examination GENERAL APPEARANCE: well developed , well nourished HEAD: normocephalic HEART: regular rate and rhy thm, no murmurs, rubs, gallops LUNGS: good air movement, n o wheezes, rales, rhonchi, clear to auscultation bilaterally SKIN: good turgor
--- NOTE | 2025-07-31 10:33 | HO.NEPHOV_ITS ---
Vital Signs 07/31/25 10:35 Height 5 ft 3.5 in Weight 124 lb 6 oz BMI 21.7 BP 142/70 H Blood Pressure Location Lt brachial Position Sitting Pulse 66 Pulse Source Pulse Oximeter Pulse Oximetry (%) 98 Oxygen Delivery Method Room Air Intake Visit Reasons: FU-Conf Substation Operator Automatic Required: No Accompanied by: Self / Same As Patient Allergies levofloxacin Allergy (Intermediate, Verified 07/31/25 10:35) Rash lisinopril Allergy (Intermediate, Verified 07/31/25 10:35) cough HPI Comments Details: Deborah in follow-up of her hypertension and hyponatremia. Her blood pressure is well controlled. Her serum sodium has been stable. She does not have any orthostatic symptoms, nausea, vomiting, diarrhea, edema, chest pain, shortness of breath, paroxysmal nocturnal dyspnea or orthopnea. She takes nonsteroidal anti-inflammatories as needed basis. She does not drink excessive free water. Otherwise she did not have any new other complaints at the time of this office visit [facility], [facility] Medical History (System 12/18/24 @ 12:05 by Marilyn Finn) Hypothyroidism Sciatica Hypertension Kidney stones Osteoporosis Neutropenia Insomnia Anemia Tubular adenoma of colon Surgical History Hx of endoscopy Hx of colonoscopy History of right hip replacement Family History Father Cancer Mother Cancer Social History Household Members: Spouse Housing: House Alcohol intake: current Alcohol intake frequency: a few times a month Alcohol type: wine Patient Tobacco Use Status: Never used Tobacco e-Cigarette/Vaping Use: Never Used service: No Current occupational status: employed Current occupation: Realtor Review of Systems Const All systems reviewed & are unremarkable except as noted in HPI and below Physical Exam Vital Signs: Last Vital Signs Pulse 66 07/31/25 10:35 BP 142/70 H 07/31/25 10:35 Pulse Ox 98 07/31/25 10:35 Oxygen Delivery Method Room Air 07/31/25 10:35 BMI result Body Mass Index 21.7 Const General: comfortable and no acute distress Orientation/consciousness: patient oriented x3 HEENT Head: Yes normocephalic Mouth: Normal oral and palatal mucosa present Eyes EOM: EOMs intact bilaterally Neck Neck: Yes supple Resp Auscultation: clear to auscultation bilaterally Cardio Jugular venous distension: no JVD Rate: regular rate GI Palpation (GI): Soft to palpation Auscultation: normal bowel sounds General: Yes no CVA tenderness Back/Spine/Pelvis Back: no CVA tenderness Skin General skin exam: no rashes or lesions noted Neuro General: patient oriented x3 and moves all extremities Extrem General: Yes no pedal edema Results Reviewed Nephrology Results: Hgb, (12.0-16.0) 11.9 g/dl L 01/11/25 WBC, (4.8-10.8) 5.0 X10*3/uL 01/11/25 Plt Count, (160-400) 434 X10*3/uL H 01/11/25 Sodium, (135-145) 133 mmol/L L 07/23/25 Potassium, (3.3-5.1) 4.1 mmol/L 07/23/25 Chloride, (96-108) 98 mmol/L 07/23/25 Carbon Dioxide, (22-29) 27 mmol/L 07/23/25 BUN, (9-16) 16 mg/dL 07/23/25 Creatinine, (0.5-1.4) 0.58 mg/dL 07/23/25 Calcium, (8.4-10.2) 9.4 mg/dL 01/11/25 Urine Protein, (Neg-Trace) Negative mg/dL 01/11/25 Urine Creatinine 16.99 mg/dL 01/25/25 Protein/Creatinin Ratio TNP 01/25/25 Assessment & Plan Assessment & Plan (1) Hypertension: Code(s): I10 - Essential (primary) hypertension Category: Medical Qualifiers: Hypertension type: primary hypertension Qualified Code(s): I10 - Essential (primary) hypertension (2) Hyponatremia: Code(s): E87.1 - Hypo-osmolality and hyponatremia Category: Medical Plan Deborah has longstanding hypertension. Her blood pressure is controlled at goal on losartan and amlodipine. She does not take excessive sodium in the diet. She does not drink excessive free water either. Her renal functions are normal. Her serum sodium is stable. She does not have any weakness or mentation changes. She likely has mild excessive ADH production. She was encouraged not to take excessive nonsteroidal anti-inflammatories given she is on ARB. Her volume status is optimal. Her blood chemistries are acceptable. I had not make any medication changes today. Answered all questions. Orders: Orders Blood Urea Nitrogen 7 Months E87.1 - Hypo-osmolality and hyponatremia, I10 - Essential (primary) hypertension Electrolytes 7 Months E87.1 - Hypo-osmolality and hyponatremia, I10 - Essential (primary) hypertension Calcium 7 Months E87.1 - Hypo-osmolality and hyponatremia, I10 - Essential (primary) hypertension Creatinine 7 Months E87.1 - Hypo-osmolality and hyponatremia, I10 - Essential (primary) hypertension Coding Level of Care Code Est Pt Level 4 (88501) Diagnoses Primary hypertension I10 Hypertension type: primary hypertension Hyponatremia E87.1
[2025-07-31 10:35] VITALS: BP 142/70; PULSE 66; O2SAT 98; BMI 21.7
--- OUTSIDE RECORDS SUMMARY | 2025-07-31 12:57 | XMS_ITS | Encounter Summary ---
Author Organization [facility] Address [address] [place] [phone] Phone Care Team Providers Care Warehouse Freight Handler Name Role Phone Malik Douglas MD Primary Care Provider Encounter Details Date Type Department Care Team (Late st Contact Info) Description 07/31/2021 Ancillary Orders [facility],Outside Imaging [address] [place] [address] System, Provider Not In, [facility] [address] [address] Social History Tobacco Use Types Packs/Day Years [...] documented as of this encounter Care Teams Warehouse Freight Handler Relationship Specialty Start Date End Date Malik Douglas MD [address] [place] [address] Dr Leong, [place] [address] PCP - General Internal Medicine 01/18/14 documented as of this encounter Additional Source Comments The information contained in this document represents components of the legal health record. It is not the complete legal health record.[facility]
--- OUTSIDE RECORDS SUMMARY | 2025-07-31 12:57 | XMS_ITS | Encounter Summary ---
Author Organization [facility] Address [address] [place] [address] Phone Care Team Providers Care Insurance Premium Auditor Name Role Phone Malik Douglas MD Primary Care Provider Reason for Referral * Consultation (Elective) - Closed Specialty Diagnoses / Procedures Referred By Contceli t Referred To Contact Pulmonary Disease Malik Douglas MD [address] [place] [address] [place] [address] Phone: tel: fax: [address] [address] Phone: tel: Referral ID Status Reason Start Date Expiration Date Visits Re quested Visits Authorized [id number] Closed 07/27/2021 07/27/2022 1 1 Encounter Details Date Type Department Care Team (Late st Contact Info) Description 07/27/2021 Transcribe Orders [facility] Pulmonology, Allergy and Critical Care Medicine [facility] [address] [place] [address] Malik Douglas MD [address] [place] [address] [place] [address] Social History Tobacco Use Types Packs/Day Years [...] Associated Diagnoses Order Schedule Ambulatory referral to [facility] Pulmonology Outpatient Referral Routine Ordered: 07/27/2021 documented as of this encounter Visit Diagnoses Not on filedocumented in this encounter Additional Health Concerns Infection Onset Date Last Indicated Resolved Time CoV-Risk 08/16/2021 08/16/2021 08/25/2021 9:55 AM EST documented as of this encounter Care Teams Insurance Premium Auditor Relationship Specialty Start Date End Date Malik Douglas MD [address] [place] [address] [place] [address] PCP - General Internal Medicine 01/18/14 documented as of this encounter Additional Source Comments The information contained in this document represents components of the legal health record. It is not the complete legal health record.[facility]
--- OUTSIDE RECORDS SUMMARY | 2025-07-31 12:57 | XMS_ITS | Encounter Summary ---
Author Organization [facility] Address [address] [place] [address] Phone Care Team Providers Care Certified Detention Deputy Name Role Phone Malik Douglas MD Primary Care Provider Encounter Details Date Type Department Care Team (Late st Contact Info) Description 11/08/2023 Procedure Pass OR Admitting Dept - Virtual Department [address] [place] [address] Social History Tobacco Use Types Packs/Day Years [...] 11/08/2023 10:43 AM Anneliese Mccoy RN * [place] Suicide Severity Rating Scale (Screener/Recent Self-Report) Question [...] on filedocumented in this encounter Care Teams Certified Detention Deputy Relationship Specialty Start Date End Date Malik Douglas MD [address] [place] [address] [place] [address] PCP - General Internal Medicine 01/18/14 documented as of this encounter Additional Source Comments The information contained in this document represents components of the legal health record. It is not the complete legal health record.[facility]
--- OUTSIDE RECORDS SUMMARY | 2025-07-31 12:57 | XMS_ITS | Patient Health Record ---
Author Organization Malik Douglas MD Address [address] [place], [place] [id number] Care Team Providers Care Student Specialist Name Role Phone Malik Douglas Primary Care Provider Allergies Allergen (clinical drug ingredient) Drug/Non Drug Allergy documented on EMR Reaction Allergy Type Onset Date Status Pneumococcal Vac Polyvalent swelling and redness Drug Allergy Active lisinopril Lisinopril cough Drug Allergy Activ e levaquin (uncoded) hives rash Allergy Active Results Component Value Reference Range Notes UA ClnCatch+Micro w/rflx Cul t Reviewed date:10/05/2024 04:41:17 PM Interpretation: Performing Lab:[facility], [address] [place] [phone] Notes/Report: Urine, Clean Catch Color Urine Yellow Appearance Urine Clear PH 7.5 5.0-9.0 Glucose Urine UA Negative Negative mg/dL Urine Blood Negative Negative Specific [place] - Urine 1.015 1.005-1.025 Urine Protein Negative [...] ff Reviewed date:01/13/2025 11:53:34 AM Interpretation: Performing Lab:[facility], [address] [place] [phone] Notes/Report: White Blood Count 5.0 4.8-10.8 X10*3/uL [...] NRBC Abs Auto 0.000 0.0-0.012 X10*3/uL Comprehensive [place]. Panel Fa st Reviewed date:01/13/2025 11:52:55 AM Interpretation: Performing Lab:[facility], [address] [place] [phone] Notes/Report: Sodium 136 135-145 mmol/L Potassium 3.9 [...] Panel Reviewed date:01/11/2025 04:14:59 PM Interpretation: Performing Lab:[facility], [address] [place] [phone] Notes/Report: Triglycerides 55 <150 mg/dL Desirable Triglyceride: [...] T4 Reviewed date:01/11/2025 01:48:44 PM Interpretation: Performing Lab:[address] [phone] Notes/Report: TSH reflex Free T4 1.30 0.32-4.0 uIU/mL UA ClnCatch+Micro w/rflx Cul t Reviewed date:01/13/2025 11:55:18 AM Interpretation: Performing Lab:[address] [phone] Notes/Report: Urine, Clean Catch Color Urine Yellow Appearance Urine Cloudy PH 7.0 5.0-9.0 Glucose Urine UA Negative Negative mg/dL Urine Blood Trace Negative Specific [place] - Urine 1.015 1.005-1.025 Urine Protein Negative Neg-Trace mg/dL Urine Ketones Negative Negative mg/dL Nitrite Urine Negative Negative Leukocyte Esterase Urine Trace Negative RBC Urine 3-5 0-2 /HPF WBC Urine 0-5 0-5 /HPF Squamous Epithelial Cell Urine 0-2 0-2 /HPF Bacteria Urine None Seen None Seen Hyaline Casts Urine 0-2 0-2 /LPF Urine Culture Reviewed date:10/07/2024 09:34:18 AM Interpretation: Performing Lab:[address] [phone] Notes/Report: O:STRAGA Strep agalactiae (Gr p B) Urine Culture Quant Urine Culture < 10,000 cfu/mL Urine Culture Susc N/A Urine Culture Susceptibility not routinely performed on this isolate. Mark Aguirre Reviewed date:01/11/2025 12:54:10 PM Interpretation: Performing Lab:[address] [phone] Notes/Report: Mark Aguirre See Note Specimen held untested for 24 hours; Call to request Chemistry testing. Electrolytes Reviewed date:01/25/2025 12:54:45 PM Interpretation: Performing Lab:[address] [phone] Notes/Report: Sodium 128 135-145 mmol/L Potassium 4.5 3.3-5.1 mmol/L Chloride 95 96-108 mmol/L Carbon Dioxide 28 22-29 mmol/L Anion Gap 10 12-20 Blood Urea Nitrogen Reviewed date:01/25/2025 12:57:13 PM Interpretation: Performing Lab:[facility], [address] [place] [phone] Notes/Report: Blood Urea Nitrogen 15 9-16 mg/dL Creatinine Reviewed date:01/25/2025 12:55:04 PM Interpretation: Performing Lab:[facility], [address] [place] [phone] Notes/Report: Creatinine 0.51 0.5-1.4 mg/dL Estimated Glomerular Filt Rate > 60 Chronic Kidney Disease: Estimated GFR < 60 mL/min/1.73m2 Severe Kidney Disease: Estimated GFR < 15 mL/min/1.73m2 Protein Creatinine Ratio, Ur Reviewed date:01/27/2025 07:37:46 PM Interpretation: Performing Lab:[facility], [address] [place] [phone] Notes/Report: Creatinine Urine 16.99 Total Protein Urine Random < 7 <12 mg/dL Protein/Creatinine Ratio, Ur TNP <0.2 Unable to calculate urine protein creatinine ratio due to low creatinine or protein result. Electrolytes Reviewed date:04/24/2025 05:55:38 PM Interpretation: Performing Lab:[facility], [address] [place] [phone] Notes/Report: Sodium 131 135-145 mmol/L Potassium 5.0 3.3-5.1 mmol/L Chloride 96 96-108 mmol/L Carbon Dioxide 29 22-29 mmol/L Anion Gap 11 12-20 Blood Urea Nitrogen Reviewed date:04/24/2025 06:02:37 PM Interpretation: Performing Lab:[facility], [address] [place] [phone] Notes/Report: Blood Urea Nitrogen 18 9-16 mg/dL Creatinine Reviewed date:04/24/2025 05:56:24 PM Interpretation: Performing Lab:[facility], [address] [place] [phone] Notes/Report: Creatinine 0.59 0.5-1.4 mg/dL Estimated Glomerular Filt Rate > 60 Chronic Kidney Disease: Estimated GFR < 60 mL/min/1.73m2 Severe Kidney Disease: Estimated GFR < 15 mL/min/1.73m2 Electrolytes Reviewed date:07/23/2025 01:48:28 PM Interpretation: Performing Lab:[facility], [address] [place] [phone] Notes/Report: Sodium 133 135-145 mmol/L Potassium 4.1 3.3-5.1 mmol/L Chloride 98 96-108 mmol/L Carbon Dioxide 27 22-29 mmol/L Anion Gap 12 12-20 Blood Urea Nitrogen Reviewed date:07/23/2025 01:48:01 PM Interpretation: Performing Lab:[facility], [address] [place] [phone] Notes/Report: Blood Urea Nitrogen 16 9-16 mg/dL Creatinine Reviewed date:07/23/2025 01:47:53 PM Interpretation: Performing Lab:[facility], [address] [place] [phone] Notes/Report: Creatinine 0.58 0.5-1.4 mg/dL Estimated Glomerular Filt Rate > 60 Chronic Kidney Disease: Estimated GFR < 60 mL/min/1.73m2 Severe Kidney Disease: Estimated GFR < 15 mL/min/1.73m2 Reason For Referral No Information Medications Medication SIG (Take, Route, Frequency, Duration) Notes Start Date End Date Status Synthroid 88 MCG TAKE 1 TABLET ONCE DAILY INTHE MORNING ON AN EMPTY STOMACH Orally Once a day Active Losartan Potassium 100 MG 1 tablet Orall y Once a day for 90 days Active amLODIPine Besylate 5 MG 1 tablet Orally Once a day Active Flonase 50 MCG/ACT 1 spray in each nost ril Nasally Once a day for 30 day(s) 12/12/2012 Not-Taking predniSONE 20 MG 1 tablet Orally [...] every 4 hrs for 30 days Active Paxil 10 MG 1 tablet in the morn ing Orally Once a day for 30 day(s) 03/07/2015 Not-Taking Ambien 5 MG 1 tablet at bedtime Orally Once a day for 20 Not-Taking traMADol HCl 50 MG 1 tablet as needed Orally every 8 hours as needed for 7 days 04/05/2019 Not-Taking Immunizations Vaccine Route Administration Date Status Comme nts Flu Vaccine Unknown 08/25/2012 Administered PPSV23 (Pnemovax) Unknown 08/25/2012 Administered DECLINED, FLU Unknown 07/17/2012 Administered DECLINED, FLU Unknown 05/15/2013 Administered Covid Vaccine Unknown 10/18/2020 Administered J&J SARS-COV-2 Pfizer Unknown 08/27/2021 Administered Fluarix Quadrivalent IM Intramuscular 05/10/2023 Administe red Fluarix Quadrivalent - 150 IM Intramuscular 04/26/2024 Adm inistered Fluarix Quadrivalent - 150 IM Intramuscular 05/30/2025 Adm inistered Flu Vaccine Unknown 07/22/2014 Refused [...] Problem Status W/U Status Risk Notes Problem 18398170 Anxiety (F41.9) Active confirmed Problem Obesity (438663352) Obesity, unspecified (E66.9) Active confirmed Problem 9043429 Primary insomnia (F51.01) Active confirmed Problem 247757537 Tubular adenoma of colon (D12.6) Active confirmed Problem 35743672 Essential hypertension (I10) Active confirmed Problem 001196610 Acquired hypothyroidism (E03.9) Active confirmed Problem 359540708 History of kidne y stones (Z87.442) Active confirmed Problem 551591151 Anemia, unspecified type (D64.9) Active confirmed Problem 416282788 Schatzki's ring (K22.2) Active confirmed Problem 67025876 Sciatica of left side (M54.32) Active confirmed Problem 40974630 Dysthymia (F34.1) Active confirmed Problem 899591785 Neutropenia, unspecified type (D70.9) Active confirmed Problem 534054945 Loss of balance (R26.89) Active confirmed Problem 64415657 Osteoporosis without current pathological fracture, unspecified osteoporosis type (M81.0) Active confirmed Problem 321878650 Insomnia, unspecified type (G47.00) Active confirmed Problem 057917951 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) Active confirmed Vital Signs Temperature 99.9 degrees Fahrenheit 09/17/2024 weig ht is 131 BP not taken at home Temp is 99.9 Blood pressure diastolic 66 mm Hg 07/16/2025 alfredo ght is down 3 pounds since 01-14-25 Height 64 in 07/16/2025 weight is down 3 pounds since 01-14-25 Blood pressure systolic 152 mm Hg 07/16/2025 weig ht is down 3 pounds since 01-14-25 Weight 127 lbs 07/16/2025 weight is down 3 pounds since 01-14-25 BMI 21.8 kg/m2 07/16/2025 weight is down 3 pounds since 01-14-25 Encounters Encounter Location Date Provider Diagnosis Malik Douglas MD [address] [place] [id number] 10/05/2024 Malik Douglas Urinary tract infection without hematuria, site unspecified N39.0 Malik Douglas MD [address] [place] [address] Drive [address] [place] [id number] 01/11/2025 Malik Douglas Essential hypertensi on I10 ; Acquired hypothyroidism E03.9 ; Anemia, unspecified type D64.9 and Neutropenia, unspecified type D70.9 Malik Douglas MD [address] [place] [id number] 05/30/2025 aMlik Douglas Encounter for administration of vaccine Z23 Malik Douglas MD [address] [place] [id number] 09/17/2024 Malik Douglas Influenza A J10.1 Malik Douglas MD [address] [place] [id number] 01/14/2025 Malik Douglas Essential hypertensi on I10 ; Anemia, unspecified type D64.9 ; Wheezing R06.2 ; Acquired hypothyroidism E03.9 ; Anxiety F41.9 and Depression screening Z13.31 Mlaik Douglas MD [address] [place] [id number] 07/16/2025 Malik Douglas Essential hypertensi on I10 Malik Douglas MD [address] [place] [id number] 07/31/2024 Malik Douglas Pneumonia J18.9 Malik Douglas MD [address] [place] [id number] 08/27/2024 Malik Douglas MD [address] [place] [id number] 09/25/2024 Malik Douglas Cough R05.9 Malik Douglas MD [address] [place] [address] [id number] 09/27/2024 Malik Douglas Acquired hypothyroidism E03.9 Malik Douglas MD [address] [place] [id number] 10/05/2024 Malik Douglas Loss of balance R26. 89 Assessments Encounter Date Diagnosis (ICD Code) Assessment Notes Treatment Notes Treatment Clinical Notes Section Notes 10/05/2024 Urinary tract infection without hematuria, site unspecified (ICD-10 - N39.0) 01/11/2025 Essential hypertension (ICD-10 - I10) 05/30/2025 Encounter for administration of vaccine (ICD-10 - Z23) 09/17/2024 Influenza A (ICD-10 - J10.1) patient verbalized understanding of medicatioj and directions for use 01/14/2025 Essential hypertension (ICD-10 - I10) well controlled, will cpntinue current regiment 01/14/2025 Anemia, unspecified type (ICD-10 - D64.9) is stable for years, will cntinue to monitor 07/16/2025 Essential hypertension (ICD-10 - I10) running a fx2hxlx high will see nephrology this month 09/25/2024 Cough (ICD-10 - R05.9) 09/27/2024 Acquired [...] CHEST 2 VIEW PA & LAT 06/01/2021 XR chest 2V 07/30/2021 XR chest 2V 09/25/2024 Future Test Test Name Order Date XR CHEST 2 VIEW PA & LAT 06/18/2021 Next Appt Details Provider Name:Malik duron, 01/14/2026 07:00:00 AM, [address] [place] [address], [address], [place], [place], [phone], Provider Name:Malik duron, 01/21/2026 10:30:00 AM, [address], [address], [place], [place], [phone], Insurance Providers Payer Name Payer Address Payer Phone Subscriber Number Group Number Insured Name Patient Relationship to Insured Coverage Start Date Coverage End Date [employer] [address] [place] [address] [id number] Deborah Moreno Self - patient is the insured [facility] [address] [place] [address] [id number] Tiffanie , Deborah Self - patient is the insured Medical (General) History Medical History History 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
--- OUTSIDE RECORDS SUMMARY | 2025-07-31 12:58 | XMS_ITS | Encounter Summary ---
Author Organization [facility] Address [address] [place] [address] [place] [phone] Phone Care Team Providers Care Tear Down Man Name Role Phone Malik Douglas MD Primary Care Provider Encounter Details Date Type Department Care Team (Late st Contact Info) Description 09/17/2022 Procedure Pass [facility], Ct Scan - [address] [address] Social History Tobacco Use Types Packs/Day Years [...] on filedocumented in this encounter Care Teams Tear Down Man Relationship Specialty Start Date End Date Malik Douglas MD [address] [place] [address] [place] [address] PCP - General Internal Medicine 01/18/14 documented as of this encounter Additional Source Comments The information contained in this document represents components of the legal health record. It is not the complete legal health record.[facility]
--- OUTSIDE RECORDS SUMMARY | 2025-07-31 13:01 | XMS_ITS | Encounter Summary ---
Author Organization [facility] Address [address] [place] [address] [place] [phone] Phone Care Team Providers Care Clinical Rehabilitation Specialist Name Role Phone Malik Douglas MD Primary Care Provider Encounter Details Date Type Department Care Team (Late st Contact Info) Description 06/15/2022 Procedure Pass [facility], Ct Scan - [address] [address] Social History Tobacco Use Types Packs/Day Years [...] on filedocumented in this encounter Care Teams Clinical Rehabilitation Specialist Relationship Specialty Start Date End Date Malik Douglas MD [address] [place] [address] [place] [address] PCP - General Internal Medicine 01/18/14 documented as of this encounter Additional Source Comments The information contained in this document represents components of the legal health record. It is not the complete legal health record.[facility]
--- OUTSIDE RECORDS SUMMARY | 2025-07-31 13:01 | XMS_ITS | Encounter Summary ---
Author Organization [facility] Address [address] [place] [address] Phone Care Team Providers Care Pharmacy Customer Care Specialist Name Role Phone Malik Douglas MD Primary Care Provider Encounter Details Date Type Department Care Team (Late st Contact Info) Description 09/25/2024 Transcribe Orders Virtual Department [address] [place] [address] Malik Douglas MD [address] [place] [address] [place] [address] Cough, unspecified type (Primary Dx) Social History [...] clinician's provided indication for this examination in [facility]: Cardiac screening, prior to radiation therapy [...] clinician's provided indication for this examination in [facility]:Cardiac screening, prior to radiation therapy or [...] type documented in this encounter Care Teams Pharmacy Customer Care Specialist Relationship Specialty Start Date End Date Malik Douglas MD [address] [place] [address] [place] [address] PCP - General Internal Medicine 01/18/14 documented as of this encounter Additional Source Comments The information contained in this document represents components of the legal health record. It is not the complete legal health record.[facility]
--- OUTSIDE RECORDS SUMMARY | 2025-07-31 13:01 | XMS_ITS | Encounter Summary ---
Author Organization [facility] Address [address] [place] [address] [place] [phone] Phone Care Team Providers Care Sweep Press Operator Name Role Phone Malik Douglas MD Primary Care Provider Encounter Details Date Type Department Care Team (Late st Contact Info) Description 09/28/2021 Procedure Pass [facility], Ct Scan - [address] [address] Social History Tobacco Use Types Packs/Day Years [...] on filedocumented in this encounter Care Teams Sweep Press Operator Relationship Specialty Start Date End Date Malik Douglas MD [address] [place] [address] [place] [address] PCP - General Internal Medicine 01/18/14 documented as of this encounter Additional Source Comments The information contained in this document represents components of the legal health record. It is not the complete legal health record.[facility]
--- OUTSIDE RECORDS SUMMARY | 2025-07-31 13:01 | XMS_ITS | Encounter Summary ---
Author Organization [facility] Address [address] [place] [phone] Phone Care Team Providers Care Airport Operations Crew Member Name Role Phone Malik Douglas MD Primary Care Provider Encounter Details Date Type Department Care Team (Late st Contact Info) Description 04/21/2018 Procedure Pass [facility] Endoscopy Admitting Dept Virtual Department [address] [place] [address] Social History Tobacco Use Types Packs/Day Years [...] documented as of this encounter Care Teams Airport Operations Crew Member Relationship Specialty Start Date End Date Malik Douglas MD [address] [place] [address] [place] [address] PCP - General Internal Medicine 01/18/14 documented as of this encounter Additional Source Comments The information contained in this document represents components of the legal health record. It is not the complete legal health record.[facility]
--- OUTSIDE RECORDS SUMMARY | 2025-07-31 13:01 | XMS_ITS | Encounter Summary ---
Author Organization [facility] Address [address] [place] [phone] Phone Care Team Providers Care Distribution Sales Representative Name Role Phone Malik Douglas MD Primary Care Provider Encounter Details Date Type Department Care Team (Late st Contact Info) Description 07/31/2024 Transcribe Orders Virtual Department [address] [place] [address] Malik Douglas MD [address] [place] [address] [place] [address] Pneumonia due to infectious organism, unspecified laterality, [...] clinician's provided indication for this examination in [facility]:Pneumonia; pneumonia COMPARISON: XR CHEST OUTSIDE (NO INTERPRETATION) ; CT CHESTWITHOUT CONTRAST ; XR CHEST PA AND LATERAL 2 [id number] FINDINGS: Devices/Tubes/Lines: None. Lungs: There are similar [...] lung documented in this encounter Care Teams Distribution Sales Representative Relationship Specialty Start Date End Date Malik Douglas MD [address] [place] [address] [place] [address] PCP - General Internal Medicine 01/18/14 documented as of this encounter Additional Source Comments The information contained in this document represents components of the legal health record. It is not the complete legal health record.[facility]
--- OUTSIDE RECORDS SUMMARY | 2025-07-31 13:01 | XMS_ITS | Clinical Summary ---
Author Organization [facility] Address [address] [place] [id number] Phone Care Team Providers Care Director Of Land Name Role Phone Malik Douglas MD Primary [...] 0 4 Active mirabegron (MYRBETRIQ) 25 mg [id number] :Urinary dribbling Take 1 tablet (25 mg [...] her polysaccharide vaccine if her IgG levels lathe turner to be low. Persistent cough for 3 [...] with her primary care doctor and her lead infrastructure architect regarding this. Vaginal pessary in situ 07/29/2021 04/2 10/2023 Overview (07/29/2021): #[address] 07/29/2021. Good correction of anatomic defects. She would like to try to manage at home. Instructed her removal and reinsertion prn. Assessment & Plan (07/29/2021 1:15 PM EST): F/up 4 weeks for reevaluation Immunizations Immunization Administration Dates Next Due COVID-19 (Pre) hereO Vaccine, [id number], P F 10/18/2020 COVID-19 (Pre-06/06) [...] VACCINE (1 - 1-dose 75+ series) 2024 CREATININE LEVEL 11/06/2024 11/07/2023, , 05/01/2012 POTASSIUM LEVEL 11/06/2024 11/07/2023, 04/16, 05/01/2012 INFLUENZA VACCINE (#1) 2025 , 05/10/2023, 06/04/2022 COVID-19 VACCINE (2024- season) 2025 09/03/2022, 08/27/2021, 10/18/2020, Additional history exists BLOOD PRESSURE 05/16/2025 11/14/2024 SMOKING STATUS SCREENING [...] this topic Medical Devices Implanted Type Area Software Client Architect Device Identifier Shelf Expiration Date Model / Serial / Lot Mesh Mesh Urinary Bladder Pin Pin Left: Toe Prosthetic Joint Prosthetic Joint Right: Hip Sling Incontinence Miduretheral Obtryx Ii Halo Transobturator - [id number] Implanted:Qty: 1 on 11/08/2023 by Billy Gibson MD at [facility] N/A: Iliac Crest FiscalNote [id number] 04/12/2026 [id number] / / [id number] Procedures Procedure Name Priority Date/Time Associated Diagnosis Comments BASIC METABOLIC PANEL (BMP) Routine 11/07/2023 7:57 AM EDT Urinary frequency from Last 3 Months or Most Recently Relevant to Health Maintenance Results * (ABNORMAL) Basic metabolic panel (11/07/2023 7:57 AM EDT) SODIUM 134 133 - 146 mmol/L [facility] CHLORIDE 96 96 - 108 mmol/L [facility] POTASSIUM 4.2 3.3 - 5.1 mmol/L [facility] CO2 27 21 - 35 mmol/L [facility] BUN 13 6 - 19 mg/dL [facility] CREATININE 0.40(L) 0.5 - 1.5 mg/dL [facility] GLUCOSE 57(L) 70 - 99 mg/dL [facility] CALCIUM 9.5 8.4 - 10.3 mg/dL [facility] EGFR 104 >59 mL/min/1.7 3m2 [facility] Comment:Estimated glomerular filtration rate calculated using the CKD-EPI refit equation. ANION GAP 15 10 - 20 mmol/L [facility] Blood 11/07/2023 7:57 AM EDT 11/07/2023 9:29 AM EDT Billy Gibson MD LAB BLOOD BKR ORDERABLES Final R esult [facility] [address] [place], [place] [id number] from Last 3 Months or Most Recently Relevant to Health Maintenance Insurance MEDICARE PART A & B Member Subscriber Plan / Payer (Ef fective 2024-Present) Name:Deborah Moreno Member ID:[id number] Relation to Subscriber:Self Name:Deborah Moreno Subscriber ID:[id number] Payer ID:[id number] Group ID:Not on file Type:Medicare Address: [employer] [facility] [address] [address] [facility] [employer] [facility] MEDICARE SUPPLEMENT MEDICARE PART A & B Member Subscriber Plan / Payer (Ef fective 2024-Present) Name:Deborah Moreno Member ID:[id number] Relation to Subscriber:Self Name:Deborah Moreno Subscriber ID:[id number] Payer ID:[id number] Group ID:Not on file Type:Medicare Address: [employer] [address] [place] [address] FOR LIFE MEDICARE SUPPLEMENT MEDICARE PART A & B Member Subscriber Plan / Payer ( fective 2024-Present) Name:Deborah Moreno Member ID:[id number] Relation to Subscriber:Self Name:Elvia Morenojodeloris Almeida Subscriber ID:[id number] Payer ID:[id number] Group ID:Not on file Type:Medicare Address: [employer] [address] [place] [address] MEDICARE PART A & B Member Subscriber Plan / Payer ( fective 2024-Present) Name:Deborah Moreno Member ID:[id number] Relation to Subscriber:Self Name:Tiffanie, Deborah M Subscriber ID:[id number] Payer ID:[id number] Group ID:Not on file Type:Medicare Address: [employer] [address] [place], [place] [id number] MEDICARE PART A & B Member Subscriber Plan / Payer (Ef fective 2024-Present) Name:Deborah Moreno Member ID:[id number] Relation to Subscriber:Self Name:Deborah Moreno Subscriber ID:[id number] Payer ID:[id number] Group ID:Not on file Type:Medicare Address: [employer] [address] [place] [address] [employer] MEDICARE SUPPLEMENT MEDICARE PART A & B Member Subscriber Plan / Payer (Ef fective 2024-Present) Name:Deborah Moreno Member ID:[id number] Relation to Subscriber:Self Name:Deborah Moreno Subscriber ID:[id number] Payer ID:[id number] Group ID:Not on file Type:Medicare Address: [employer] [address] [place] [phone] [employer] MEDICARE SUPPLEMENT MEDICARE PART A & B [facility] MEDICARE SUPPLEMENT MEDICARE PART A & B Member Subscriber Plan / Payer (Ef fective 2024-Present) Name:Deborah Moreno Member ID:[id number] Relation to Subscriber:Self Name:Deborah Moreno Subscriber ID:[id number] Payer ID:[id number] Group ID:Not on file Type:Medicare Address: [employer] [address] [place] [address] MEDICARE PART A & B Member Subscriber Plan / Payer (Ef fective 2024-Present) Name:Deborah Moreno Member ID:[id number] Relation to Subscriber:Self Name:Deborah Moreno Subscriber ID:[id number] Payer ID:[id number] Group ID:Not on file Type:Medicare Address: [employer] [address] [place] [address] FOR LIFE MEDICARE SUPPLEMENT Advance Directives For more information, please contact: [phone] (9AM - 5PM [facility], Tuesday-Tuesday) Documents on File Type Date Recorded Patient Needle Punch Operator Expl anation Healthcare Proxy 11/10/2023 11:31 AM * Full Code (Latest Code Status on File) Date Activated Date Inactivated Comments 11/08/2023 10:36 AM Question Answer Comments Code Status Confirmed With: Patient * Full Code Date Activated Date Inactivated Comments 11/08/2023 7:27 AM 11/08/2023 10:36 AM Question Answer Comments Code Status Confirmed With: Patient Care Teams Director Of Land Relationship Specialty Start Date End Date Malik Douglas MD [address] [place] [address] [place] [address] PCP - General Internal Medicine 01/18/14 Additional Source Comments The information contained in this document represents components of the legal health record. It is not the complete legal health record.[facility]
--- OUTSIDE RECORDS SUMMARY | 2025-07-31 13:02 | XMS_ITS | Encounter Summary ---
Author Organization [facility] Address [address] [place] [address] Phone Care Team Providers Care Voltmeter Operator Name Role Phone Malik Douglas MD Primary Care Provider Reason for Referral * MRI/CAT Scan - Closed Specialty Diagnoses / Procedures Referred By Contac t Referred To Contact Radiology Diagnoses Recurrent pneumonia Procedures CT Chest CT Angio Chest CT Chest Ruchi Abdul MD Phone: tel: fax: [email or web address] Referral ID Status Reason Start Date Expiration Date Visits Re quested Visits Authorized [id number] Closed 09/28/2021 09/28/2022 1 1 Encounter Details Date Type Department Care Team (Late st Contact Info) Description 09/28/2021 Ancillary Orders [facility]ology[facility] [address] [place] [address] Ruchi Abdul MD [address] [address] [email or web address] Shortness of breath; Recurrent pneumonia Social History [...] nodules identified. Soft tissues: Normal. Abdomen: Limited sri-awnfkrdv-dixhtivo views of the upper abdomen obtained. No [...] nodules identified. Soft tissues: Normal. Abdomen: Limited pnv-eeixkmew-maiwwzqg views of the upper abdomenobtained. No acute [...] unspecified documented in this encounter Care Teams Voltmeter Operator Relationship Specialty Start Date End Date Malik Douglas MD [address] [place] [address] [place] [address] PCP - General Internal Medicine 01/18/14 documented as of this encounter Additional Source Comments The information contained in this document represents components of the legal health record. It is not the complete legal health record.[facility]
== END 2025-07-31 11:04 | disposition home or self-care (01) ==
LOC: HO.HKA 10:26
PROVIDERS: PCP Internal Medicine; Visit Provider Internal Medicine Nephrology
DX: I10 Essential (primary) hypertension (principal); E87.1 Hypo-osmolality and hyponatremia
CPT/HCPCS: 99214

== ENCOUNTER → 2025-07-31 10:26 | Outpatient (BNVA) | payer MEDICARE, OTHER, SELFPAY | PROVIDERS: PCP Internal Medicine; Visit Provider Internal Medicine Nephrology | DX: I10 Essential (primary) hypertension (principal); E87.1 Hypo-osmolality and hyponatremia | CPT/HCPCS: 99212 ==